=== PATIENT | female | born 1985 | race Caucasian/White ===

== ENCOUNTER → 2020-08-21 11:56 | Outpatient (BNVA) | payer OTHER, SELFPAY | PROVIDERS: PCP Internal Medicine; Referring Provider Internal Medicine; Visit Provider Obstetrics & Gynecology | DX: Z76.89 Persons encountering health services in other specified circumstances (principal) ==

== ENCOUNTER 2021-02-07 10:17 | Outpatient (REF) | payer OTHER, SELFPAY ==
[2021-02-08 13:07] LABS: H Pylori Breath Test NOT DETECTED (NOT DETECTED)
== END 2021-02-07 10:18 | disposition home or self-care (01) ==
LOC: HO.LNP 10:17
PROVIDERS: PCP Internal Medicine; Visit Provider Surgery
DX: Z01.818 Encounter for other preprocedural examination (principal); E66.01 Morbid (severe) obesity due to excess calories; Z68.41 Body mass index [BMI] 40.0-44.9, adult; R06.02 Shortness of breath
CPT/HCPCS: 83013

== ENCOUNTER 2021-02-09 07:20 | Outpatient (REF) | payer OTHER, SELFPAY ==
--- NOTE | ~2021-02-09 | XR_ITS ---
EXAMINATION: XR CHEST CLINICAL INFORMATION: Shortness of breath COMPARISON: December 14, 2017 TECHNIQUE: 2 views of the chest were obtained. FINDINGS: No significant abnormality is noted involving the heart, lungs, mediastinum, bony thorax or soft tissues. XR/XR chest 2V IMPRESSION: No acute disease.
[2021-02-09 08:19] LABS: MANUAL DIFF FLAG NO
[2021-02-09 08:31] LABS: Basophils Percent Auto 0.2 % (0-2); Eosinophils Absolute Auto 0.1 X10*3/uL (0.0-0.4); Eosinophils Percent Auto 0.6 % (0-4); Hematocrit 40.8 % (37-47); Hemoglobin 13.4 g/dl (12.0-16.0); Imm Gran Abs Auto 0.05 X10*3/uL (0.00-0.03); Imm Gran Pct Auto 0.5 % (0.0-0.4); Lymphocytes Absolute Auto 2.1 X10*3/uL (1.2-4.9); Lymphocytes Percent Auto 18.7 % (20-40); Mean Corpuscular HGB Conc 32.8 g/dl (31.0-35.0); Mean Corpuscular Hemoglobin 28.8 pg (27.0-33.0); Mean Corpuscular Volume 87.6 fL (80-98); Monocytes Absolute Auto 0.8 X10*3/uL (0.1-1.2); Neutrophils Absolute Auto 8.1 X10*3/uL (2.0-8.3); Platelet Count 301 X10*3/uL (160-400); Red Blood Count 4.66 X10*6/uL (4.20-5.50); Red Cell Distribution Width 12.5 % (11.0-16.0); White Blood Count 11.1 X10*3/uL (4.8-10.8)
[2021-02-09 08:35] LABS: Estimated Average Glucose 103 mg/dL; Hemoglobin A1c % 5.2 %
[2021-02-09 08:58] LABS: Alanine Aminotransferase 30 U/L (0-31); Albumin Level 4.1 g/dL (3.5-5.0); Alkaline Phosphatase 66 U/L (39-117); Anion Gap 17 (12-20); Aspartate Amino Transferase 23 U/L (5-31); Bilirubin Total 0.6 mg/dL (0.0-1.0); Blood Urea Nitrogen 14 mg/dL (9-16); C Reactive Protein 0.82 mg/dL (< or = 0.50); Calcium 9.1 mg/dL (8.4-10.2); Carbon Dioxide 22 mmol/L (22-29); Chloride 105 mmol/L (96-108); Cholesterol 133 mg/dL; Estimated Glomerular Filt Rate > 60; Glucose Fasting 86 mg/dL (60-99); HDL Cholesterol 25 mg/dL; Iron 66 mcg/dL (30-160); LDL Cholesterol Calculated 98 mg/dl; Percent Iron Saturation 24 % (15-50); Potassium 4.5 mmol/L (3.3-5.1); Sodium 139 mmol/L (135-145); Total Iron Binding Capacity 270 mcg/dL (228-428); Total Protein 6.8 g/dL (6.5-8.0); Triglycerides 53 mg/dL; Unsaturated Iron Binding 204 ug/dL
[2021-02-09 09:08] LABS: Thyroid Stimulating Hormone 1.39 uIU/mL (0.32-4.0); Vitamin D 25-OH Total 12.7 ng/mL (>30)
[2021-02-11 08:42] LABS: Vitamin B12 400 pg/mL (200-900)
[2021-02-11 13:43] LABS: Calcium (PTHI) 9.3 mg/dL (8.6-10.2); PTHI 28 pg/mL (14-64)
[2021-02-12 15:37] LABS: Zinc 80 mcg/dL (60-130)
[2021-02-14 06:22] LABS: Vitamin B1 8 nmol/L (8-30)
[2021-02-14 11:32] LABS: Vitamin A 26 mcg/dL (38-98)
== END 2021-02-09 07:21 | disposition home or self-care (01) ==
LOC: HO.LAB 07:20
PROVIDERS: PCP Internal Medicine; Visit Provider Surgery
DX: Z01.818 Encounter for other preprocedural examination (principal); K91.2 Postsurgical malabsorption, not elsewhere classified; R06.02 Shortness of breath; Z90.3 Acquired absence of stomach [part of]
CPT/HCPCS: 36415; 71046; 80053; 80061; 82306; 82607; 83036; 83540; 83970; 84425; 84443; 84590; 84630; 85025; 86140

== ENCOUNTER → 2021-02-26 08:12 | Outpatient (BNVA) | payer OTHER, SELFPAY | PROVIDERS: PCP Internal Medicine; Visit Provider Surgery ==

== ENCOUNTER → 2021-02-27 08:19 | Outpatient (BNVA) | payer OTHER, SELFPAY | PROVIDERS: PCP Internal Medicine; Visit Provider Dietitian, Registered | DX: E66.9 Obesity, unspecified (principal); Z68.41 Body mass index [BMI] 40.0-44.9, adult | CPT/HCPCS: 97802 ==

== ENCOUNTER → 2021-03-12 10:48 | Outpatient (BNVA) | payer OTHER, SELFPAY | PROVIDERS: PCP Internal Medicine; Referring Provider Internal Medicine; Visit Provider Surgery ==

== ENCOUNTER → 2021-03-22 13:15 | Outpatient (BNVA) | payer OTHER, SELFPAY | PROVIDERS: PCP Internal Medicine; Referring Provider Internal Medicine; Visit Provider Surgery ==

== ENCOUNTER 2021-04-03 10:09 | Inpatient (IN) | payer OTHER, SELFPAY ==
--- NOTE | 2021-03-19 09:15 | ECG_ITS ---
Test Reason : R06.02 Blood Pressure : / mmHG Vent. Rate : 056 BPM Atrial Rate : 056 BPM P-R Int : 132 ms QRS Dur : 082 ms QT Int : 400 ms P-R-T Axes : 057 023 023 degrees QTc Int : 386 ms Sinus bradycardia Otherwise normal ECG No previous ECGs available Referred By: Miryam Shipman Electronically Signed By:MARIA GUADALUPE LEVY MD
[2021-03-19 10:10] LABS: MANUAL DIFF FLAG NO
[2021-03-19 10:12] LABS: Basophils Percent Auto 0.2 % (0-2); Eosinophils Absolute Auto 0.1 X10*3/uL (0.0-0.4); Eosinophils Percent Auto 0.5 % (0-4); Hematocrit 39.7 % (37-47); Hemoglobin 13.3 g/dl (12.0-16.0); Imm Gran Abs Auto 0.02 X10*3/uL (0.00-0.03); Imm Gran Pct Auto 0.2 % (0.0-0.4); Lymphocytes Absolute Auto 1.4 X10*3/uL (1.2-4.9); Lymphocytes Percent Auto 13.8 % (20-40); Mean Corpuscular HGB Conc 33.5 g/dl (31.0-35.0); Mean Corpuscular Hemoglobin 30.2 pg (27.0-33.0); Mean Corpuscular Volume 90.2 fL (80-98); Mean Platelet Volume 11.4 fL (9.4-12.3); Monocytes Absolute Auto 0.6 X10*3/uL (0.1-1.2); Neutrophils Absolute Auto 8.2 X10*3/uL (2.0-8.3); Neutrophils Percent Auto 79.3 % (45-73); Platelet Count 286 X10*3/uL (160-400); Red Cell Distribution Width 13.1 % (11.0-16.0); White Blood Count 10.4 X10*3/uL (4.8-10.8)
[2021-03-19 10:21] LABS: INTERNATIONAL NORM RATIO 1.1 (0.9-1.1); Prothrombin Time 13.1 SEC (10.8-13.0)
[2021-03-19 10:23] LABS: Partial Thromboplastin Time 31.7 SEC (24.1-38.0)
[2021-03-19 10:27] LABS: Glucose Urine UA NEG (NEG); Leukocyte Esterase Urine NEG (NEG); Nitrite Urine NEG (NEG); PH 5.5 (5.0-8.0); Specific Gravity - Urine >= 1.030 (1.005-1.025); Urine Blood TRACE (NEG); Urine Ketones >=80 MG/DL (NEG); Urine Protein NEG (NEG-TRACE)
[2021-03-19 10:31] LABS: Appearance Urine HAZY; Color Urine YELLOW
[2021-03-19 10:34] LABS: UPreg QC Valid YES; Urine Pregnancy NEGATIVE (NEGATIVE)
[2021-03-19 10:44] LABS: Albumin Level 4.1 g/dL (3.5-5.0); Anion Gap 14 (12-20); Blood Urea Nitrogen 15 mg/dL (9-16); Calcium 9.4 mg/dL (8.4-10.2); Carbon Dioxide 23 mmol/L (22-29); Chloride 105 mmol/L (96-108); Estimated Glomerular Filt Rate > 60; Glucose Random 90 mg/dL (60-115); Potassium 4.1 mmol/L (3.3-5.1); Sodium 138 mmol/L (135-145)
[2021-03-19 10:52] LABS: Bacteria Urine 1+ /LPF; Mucus Urine 2+ /LPF; Squamous Epithelial Cell Urine 1+ /LPF; WBC Urine 0-2 /HPF (0-4)
[2021-03-19 11:07] LABS: Vitamin D 25-OH Total 61.9 ng/mL (>30)
[2021-03-24 11:56] LABS: Vitamin A 32 mcg/dL (38-98)
[2021-03-25 10:51] VITALS: BMI 40.6
--- NOTE | 2021-04-02 10:02 | P.CONAN_ITS ---
Documented by User: Piedad Morgan 04/02/21 10:05 HPI - Anesthesia Eval Consult details Narrative: 35yo F for Gastric Bypass Laparoscopic PMFSH Active Problems Active Problems: All Active Problems (Updated 03/25/21 @ 10:56 by Marylou Moran) 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 (Acute) Bacterial vaginosis (Acute) Annual physical exam (Acute) Multiple pigmented nevi (Acute) Preoperative examination (Acute) Shortness of breath (Acute) Morbid obesity due to excess calories (Acute) BMI 40.0-44.9, adult (Acute) Vitamin D deficiency (Acute) Vitamin A deficiency (Acute) Adjustment disorder, unspecified (Acute) Impaired glucose tolerance (Acute) Obesity (Acute) Past Medical History Medical History Bile salt-induced diarrhea COVID-19 vaccine series started GERD (gastroesophageal reflux disease) Gestational diabetes Hiatal hernia History of kidney stones History of pneumonia Hypotension Impaired glucose tolerance Irritable bowel syndrome Lateral meniscal tear Obesity Family History Family History Maternal Aunt Ovarian cancer Paternal Grandfather Lymphoma Mother Diabetes mellitus Acute arthritis Anxiety Family history of thyroid problem Father Smokes Hypertension High cholesterol Sister No problems noted. Sister Broken bones Asthma Daughter Migraine Asthma Son Asthma Premature baby Growth delay History of chest tube placement Pneumothorax Surgical History Surgical History H/O LEEP History of endoscopy History of esophagogastroduodenoscopy (EGD) History of removal of skin mole History of tonsillectomy and adenoidectomy Hx of cholecystectomy Hx of colonoscopy Social History Social History Are you a primary long term care administrator to a significant other at home: No Do you presently have visiting nurse or other home services: No Alcohol intake: never Sexual orientation: Straight/Heterosexual Gender identity: female Meds Allergies Allergy/AdvReac Type Severity Reaction Status Date / Time Penicillins Allergy Mild RASH Verified 03/12/21 11:04 Home Medications Medication Instructions Recorded Confirmed Last Taken Type etonogestrel 68 mg subdermal implant SUBDERMAL 08/21/20 02/26/21 Unknown History implant fluticasone propionate 50 1 spray INTRANASAL DAILY PRN 08/21/20 03/25/21 Unknown History mcg/actuation nasal spray,suspension ibuprofen 800 mg tablet 800 mg PO Q8H 08/21/20 03/25/21 11/02/20 History cholecalciferol (vitamin D3) 25 25 mcg PO DAILY 02/07/21 03/25/21 Unknown History mcg (1,000 unit) capsule Exam Exam Date and Time: April 02, 2021 1002 Height,Weight and Vital Signs: Height 5 ft 2.5 in Weight 102.512 kg Pertinent Lab Results Pertinent Lab Results: Laboratory Tests 03/19/21 03/19/21 03/19/21 09:40 09:40 09:40 WBC 10.4 RBC 4.40 Hgb 13.3 Hct 39.7 MCV 90.2 MCH 30.2 MCHC 33.5 RDW 13.1 Plt Count 286 MPV 11.4 Immature Gran % (Auto) 0.2 Neut % (Auto) 79.3 H Lymph % (Auto) 13.8 L Sunflower % (Auto) 6.0 Eos % (Auto) 0.5 Baso % (Auto) 0.2 Lymph # (Auto) 1.4 Sunflower # (Auto) 0.6 Eos # (Auto) 0.1 Baso # (Auto) 0.0 Abs Immat Gran (auto) 0.02 Absolute Neuts (auto) 8.2 Absolute Nucleated RBC 0.000 Nucleated RBC % (auto) 0.0 PT 13.1 H INR 1.1 APTT 31.7 Sodium Potassium Chloride Carbon Dioxide Anion Gap BUN Creatinine Estim Creat Clear Calc Estimated GFR Random Glucose Calcium Albumin Vitamin A 25-OH Vitamin D Total Urine Color YELLOW Urine Appearance HAZY Urine pH 5.5 Ur Specific Hardwick >= 1.030 H Urine Protein NEG Urine Glucose (UA) NEG Urine Ketones >=80 Urine Blood TRACE Urine Nitrite NEG Ur Leukocyte Esterase NEG Urine RBC 1-4 Urine WBC 0-2 Ur Squamous Epith Cells 1+ Urine Bacteria 1+ Urine Mucus 2+ Urine Test Blood Type Antibody Screen 03/19/21 03/19/21 03/19/21 09:40 09:40 09:40 WBC RBC Hgb Hct MCV MCH MCHC RDW Plt Count MPV Immature Gran % (Auto) Neut % (Auto) Lymph % (Auto) Sunflower % (Auto) Eos % (Auto) Baso % (Auto) Lymph # (Auto) Sunflower # (Auto) Eos # (Auto) Baso # (Auto) Abs Immat Gran (auto) Absolute Neuts (auto) Absolute Nucleated RBC Nucleated RBC % (auto) PT INR APTT Sodium 138 Potassium 4.1 Chloride 105 Carbon Dioxide 23 Anion Gap 14 BUN 15 Creatinine 0.69 Estim Creat Clear Calc TNP Estimated GFR > 60 Random Glucose 90 Calcium 9.4 Albumin 4.1 Vitamin A 32 L 25-OH Vitamin D Total 61.9 Urine Color Urine Appearance Urine pH Ur Specific Hardwick Urine Protein Urine Glucose (UA) Urine Ketones Urine Blood Urine Nitrite Ur Leukocyte Esterase Urine RBC Urine WBC Ur Squamous Epith Cells Urine Bacteria Urine Mucus Urine Test NEGATIVE Blood Type Antibody Screen 03/19/21 09:40 WBC RBC Hgb Hct MCV MCH MCHC RDW Plt Count MPV Immature Gran % (Auto) Neut % (Auto) Lymph % (Auto) Sunflower % (Auto) Eos % (Auto) Baso % (Auto) Lymph # (Auto) Sunflower # (Auto) Eos # (Auto) Baso # (Auto) Abs Immat Gran (auto) Absolute Neuts (auto) Absolute Nucleated RBC Nucleated RBC % (auto) PT INR APTT Sodium Potassium Chloride Carbon Dioxide Anion Gap BUN Creatinine Estim Creat Clear Calc Estimated GFR Random Glucose Calcium Albumin Vitamin A 25-OH Vitamin D Total Urine Color Urine Appearance Urine pH Ur Specific Hardwick Urine Protein Urine Glucose (UA) Urine Ketones Urine Blood Urine Nitrite Ur Leukocyte Esterase Urine RBC Urine WBC Ur Squamous Epith Cells Urine Bacteria Urine Mucus Urine Test Blood Type A Positive Antibody Screen NEGATIVE Narrative Narrative: EKG 03/2021 Vent. Rate : 056 BPM Atrial Rate : 056 BPM P-R Int : 132 ms QRS Dur : 082 ms QT Int : 400 ms P-R-T Axes : 057 023 023 degrees QTc Int : 386 ms Sinus bradycardia Otherwise normal ECG No previous ECGs available Assessment and Plan Assessment Anesthesia Assessment: Chart Reviewed Documented by User: Abril Lu 04/03/21 10:14 [facility] Past Medical History Medical History Bile salt-induced diarrhea COVID-19 vaccine series started GERD (gastroesophageal reflux disease) Gestational diabetes Hiatal hernia History of kidney stones History of pneumonia Hypotension Impaired glucose tolerance Irritable bowel syndrome Lateral meniscal tear Obesity Family History Family History Maternal Aunt Ovarian cancer Paternal Grandfather Lymphoma Mother Diabetes mellitus Acute arthritis Anxiety Family history of thyroid problem Father Smokes Hypertension High cholesterol Sister No problems noted. Sister Broken bones Asthma Daughter Migraine Asthma Son Asthma Premature baby Growth delay History of chest tube placement Pneumothorax Family history of problems with anesthesia: No Surgical History Surgical History H/O LEEP History of endoscopy History of esophagogastroduodenoscopy (EGD) History of removal of skin mole History of tonsillectomy and adenoidectomy Hx of cholecystectomy Hx of colonoscopy History of Problems with Anesthesia: Yes (PONV) Social History Social History Are you a primary long term care administrator to a significant other at home: No Do you presently have visiting nurse or other home services: No Alcohol intake: never Sexual orientation: Straight/Heterosexual Gender identity: female Meds Allergies Allergy/AdvReac Type Severity Reaction Status Date / Time Penicillins Allergy Mild RASH Verified 03/12/21 11:04 Home Medications Medication Instructions Recorded Confirmed Last Taken Type etonogestrel 68 mg subdermal implant SUBDERMAL 08/21/20 02/26/21 Unknown History implant fluticasone propionate 50 1 spray INTRANASAL DAILY PRN 08/21/20 03/25/21 Unknown History mcg/actuation nasal spray,suspension ibuprofen 800 mg tablet 800 mg PO Q8H 08/21/20 03/25/21 11/02/20 History cholecalciferol (vitamin D3) 25 25 mcg PO DAILY 02/07/21 03/25/21 Unknown History mcg (1,000 unit) capsule Exam Height,Weight and Vital Signs: Vital Signs Temp Pulse Resp BP Pulse Ox 04/03/21 09:27 97.4 F 75 16 140/68 H 100 Pertinent Lab Results Pertinent Lab Results: Laboratory Results - last 24 hr 04/03/21 04/03/21 09:09 09:09 Urine Test NEGATIVE COVID-19 (ALCON) Negative COVID-19 Clin Com See Note Airway Mallampati Class: II TM Dist: >3cm Neck ROM: Full Heart: RRR Lungs: CTAB Assessment and Plan Assessment Anesthesia Assessment: Anesthesia Plan Discussed and Chart Reviewed Final Anesthetic Review NPO: Yes ASA Class: III Final Preanesthetic Review: No Changes in Pt Med Stat, Meds/Allgs Chart Reviewed, Consent Obtained/Reviewed and Anes Risks/Benef Reviewed Patient Risk: Intermediate Procedure Risk: Intermediate Assessment/Block/Sedation in SS: Assess/Block/Sedation-SS Anesthetic Plan Anesthetic Plan: GA Disposition: Inp. Admit - Standard Bed
--- NOTE | 2021-04-02 16:11 | MHC.SHP ---
Pre-Procedural Eval Section B Chief Complaint: obesity Allergies: Allergies Allergy/AdvReac Type Severity Reaction Status Date / Time Penicillins Allergy Mild RASH Verified 03/12/21 11:04 Plan I have reviewed the history and physical and performed a pertinent physical examination on my patient. No changes have occurred unless specified.
[2021-04-03] VITALS (12 sets, daily range): BP systolic 91–140; BP diastolic 28–73; PULSE 52–85; RESP 15–20; TEMP 36.2–36.8; O2SAT 95–100
[2021-04-03 09:31] LABS: UPreg QC Valid YES; Urine Pregnancy NEGATIVE (NEGATIVE)
[2021-04-03] MEDS: Clindamycin Phosphate/D5W 900 MG/50 ML PIGGYBACK 50 MG IV (09:39)
[2021-04-03] MEDS: Lactated Ringers 1,000 ML 100 ML IVCONT (09:39)
[2021-04-03 09:40] LABS: COVID-19 Test Negative (Negative); IDNOW Serial# 9DD0AD1C
[2021-04-03] MEDS: Scopolamine 1.5 MG PATCH.TD.3 TRANSDERMA (10:13)
[2021-04-03] MEDS: ondansetron HCL 4 MG/2 ML VIAL IVPUSH ×2 (13:58→22:30)
[2021-04-03] MEDS: Famotidine/PF 20 MG/2 ML VIAL IVPUSH ×2 (14:06→20:26)
--- NOTE | 2021-04-03 14:09 | PM.DS ---
DS: Providers Provider Date of Service: 04/04/21 Date of admission: 04/03/21 10:09 Primary care physician: Samuel Larsen MD DS: Medications Discharge Medications Home Medications: Home Medications Medication Instructions Recorded Confirmed etonogestrel 68 mg subdermal implant SUBDERMAL 08/21/20 02/26/21 implant fluticasone propionate 50 1 spray INTRANASAL DAILY PRN 08/21/20 03/25/21 mcg/actuation nasal spray,suspension ibuprofen 800 mg tablet 800 mg PO Q8H 08/21/20 03/25/21 cholecalciferol (vitamin D3) 25 25 mcg PO DAILY 02/07/21 03/25/21 mcg (1,000 unit) capsule Previous Rx's Medication Instructions Recorded omeprazole 20 mg capsule,delayed 20 mg PO DAILY #90 cap 11/01/20 release cholecalciferol (vitamin D3) 1,250 1,250 mcg PO QWEEK #4 cap 02/11/21 mcg (50,000 unit) capsule vitamin A palmitate 10,000 unit 20,000 unit PO DAILY 30 Days #60 02/14/21 tablet tab DS: Summary Time Spent with Patient Time attestation: Total time spent providing and/or coordinating discharge services: 15DATE OF SERVICE: ADMITTING DIAGNOSES: morbid obestiy, hiatal hernia DISCHARGE DIAGNOSES: same, see procedure note PROCEDURE PERFORMED: laparoscopic RNY gastric bypass and hiatal hernia repair DISCHARGE MEDICATIONS: 1. Simethicone 80mg q4h prn gas 2. Ondansetron 4mg po tid prn nausea 3. Famotidine 20mg po bid 4. Docusate sodium 100mg po bid DISCHARGE INSTRUCTIONS: The patient should continue on the stage III bariatric diet, which includes 3 protein shakes of at least 20- 30g of protein on a daily basis. The patient was encouraged to avoid drinking liquids with her protein shakes. She should wait 30-45 minutes in between her meals and drinking water. She should drink at least 40-60 ounces of water on a daily basis. She should ambulate while at home to avoid any blood clots in her lower extremities. She should call with any questions or concerns such as increase in abdominal pain, persistent nausea, vomiting, redness and drainage from her incisions, fever, chills, shortness of breast, or chest pain beyond what is normal for her. The patient should avoid all heavy lifting greater than 5 pounds for the next 4 weeks. The patient is already scheduled to follow up with me in 2 weeks' time, but should call the office with any questions prior to that follow up appointment. The patient should not advance her diet until she is seen in the office for the 2 week appointment. HOSPITAL COURSE: The patient was admitted after undergoing laparoscopic RNY gastric bypass and hiatal hernia repair. She was kept NPO under pod # 1 when she toelrated biariatic phase 2 diet and then started on stage III diet and was tolerating well without nausea or vomiting. Her pain was controlled on IV Dilaudid and IV acetaminophen. All labs were within normal limits. On post-operative day #1 she was feeling better, nausea and epigastric pain improved and she was tolerating stage III bariatric diet well. She was discharged home. DISCHARGE DISPOSITION: Home. Discharge coordination time: Less than 30 minutes Quality: Stroke Does the patient have a stroke diagnosis?: No Physical Exam Vital Signs: Vital Signs: Last Vital Signs Temp 98.2 F 04/03/21 13:46 Pulse 80 04/03/21 13:51 Resp 16 04/03/21 13:51 BP 99/33 L 04/03/21 13:51 Pulse Ox 100 04/03/21 13:51 Body Mass Index 40.6 DS: Data Data Completed and Pending Labs on day of discharge: Laboratory Results - last 24 hr 04/03/21 04/03/21 09:09 09:09 Urine Test NEGATIVE COVID-19 (ALCON) Negative COVID-19 Clin Com See Note Discharge Plan Discharge Anticipated Discharge Date/Time: 04/04/21 12:04 Patient Disposition: Home, Self-Care Discharge Diagnosis: s/p gastric bypass Referrals: Po,Samuel Garcia MD [Primary Care Provider] - 1 Week Discharge Medications: Continued omeprazole 20 mg capsule,delayed release(DR/EC) 20 mg PO DAILY Qty: 90 RF: 2 cholecalciferol (vitamin D3) 1,250 mcg (50,000 unit) capsule 1,250 mcg PO QWEEK Qty: 4 RF: 2 cholecalciferol (vitamin D3) 25 mcg (1,000 unit) capsule 25 mcg PO DAILY RF: 0 etonogestrel 68 mg implant subdermal RF: 0 fluticasone propionate 50 mcg/actuation spray,suspension 1 spray intranasal DAILY PRN (Reason: Allergy Symptoms) RF: 0 Discontinued vitamin A palmitate 10,000 unit tablet 20,000 unit PO DAILY 30 Days Qty: 60 RF: 1 ibuprofen 800 mg tablet 800 mg PO Q8H RF: 0 Discharge Orders: Discharge Order (Routine); Ordered 04/04/21 Ordered By: Joann Henriquez Diet: other Activity on Discharge: No heavy lifting Stand Alone Forms: Patient Portal Discharge page Activity Restrictions/Additional Instructions: No tub baths, sex or returning to work until discussed at first post op appointment. No exercise, alcohol, tobacco or illegal drug use. Continue to use incentive spirometer hourly while awake. Walk in home for 5- 10 minutes every 2 hours during the first week. Continue phase 3 diet until first post op appointment. Follow all instructions in the bariatric handbook and call with any questions.Discharge Instructions 1. Please call your doctor or come back to the emergency room should any new symptoms arise. 2. You will receive a courtesy call from [facility] 24-48 hours after discharge. 3. Activity: abstain from alcohol, practice limited stair climbing, no bending, no driving, no exercise, no illicit substances, no lifting, no sex, no tub bath, no work. 4. Diet: continue stage 3 protein shakes until your [address] Shipman. 5. Dressing Change/Wound Care: Your incision is covered by surgical glue. If the area is tender, you may apply an ice pack for short intervals (no more than 20 minutes on, followed by at least 20 minutes off). Do not apply heat. Do not use creams, lotions, or topical antibiotics unless instructed to do so by your surgeon. These can cause infection or allergic reaction. 6. Call your doctor if: - Your temperature exceeds 101.5 F - You experience excessive pain or swelling - You have an unexpected reaction to medication - You have excessive bleeding - You experience continued vomiting/nausea - Your incision begins to separate - Your incision shows signs of infection such as increased redness, swelling, excessive pain, heat, or drainage (light blood or clear fluid is normal) 7. General instructions: No lifting greater than 5 lbs for the next 4 weeks[address] within 24 hours of taking narcotic pain medications. If you do not move your bowels in the next 2 days, please take milk of magnesia over the counter. Please follow the post op diet and do not advance your diet until you are seen in the office in about 2 weeks. Please walk around your home every hour or two to prevent blood clots from forming in your legs. You do not need to wake from sleeping to walk. Please sleep in a bed or couch to prevent kinking at the hips and knees. Please take your incentive spirometer (your lung veneer grader) home with you and use it for the next few days to prevent pneumonias. You may shower, no hot tubs, baths or swimming pools. Please call the office with any questions or concerns such as increasing abdominal pain, fever, chills, shortness of breath, chest pain, leg pain or swelling, or redness or drainage from your incisions. Please stay on stage 3 diet which includes sugar free clear liquids such as ice pops and jello and broth and crystal light. Avoid all carbonation. Please drink 3 protein shakes with at least 25-30 grams of protein daily or 3 of the Celebrate 4:1 shakes which can be purchased in our office. The Celebrate shakes have all of the bariatric vitamins you need if you consume these shakes. If you are drinking other protein shakes, you will need to purchase the Celebrate multivitamins and calcium that we provide in the office (they will provide all the vitamins you need). Please make sure you are consuming at least 40-60 ounces of water in addition to your 3 protein shakes daily. Do not hesitate to contact the office with any questions at . Care Plan Goals: weight loss Health Concerns: morbid obesity Plan of Treatment: see discharge instgructions Assessment: stable POD # 1 s/p gastric bypass
--- NOTE | 2021-04-03 14:11 | P.OP_ITS ---
Operative Note Operative Note Date of Service: 04/03/21 Narrative: Patient was brought into the operating room and placed on the operating room table in the supine position. General anesthesia was induced. Normal DVT prophylaxis was instituted and the patient received 900 mg of clindamycin preoperatively. The abdomen was then prepped and draped in the normal sterile fashion. A safety time-out was performed. A mixture of 1% lidocaine with epinephrine and ?% Marcaine plain was used to a nesthetize the planned incision site in the left upper quadrant. A #11 scalpel was used to make a 5 mm left upper quadrant transverse incision through which a veress needle was placed. Three pops were heard going through the fascia. A saline drop test was used to confirm that the veress needle was intraabdominal. An optiview technique was then used to place a 5mm port in the left upper quadrant. A 5 mm 30 degree laproscope was then placed through this port and the abdominal cavity was surveyed and was normal. The patient was placed in reverse Trendelenburg positioning. A kirstin liver retractor was then placed in the subxyphoid position and it was used to hold up the left lobe of the liver to the abdominal wall. This was secured to the bed using the liver retractor freitas. A SALAZAR block was then performed for pain control on the right side of the abdomen. A 5 mm port was placed in the right upper quadrant near the falciform ligament. A 12 mm port was then placed in the mid epigastrium. One additional 5 mm port was placed in the left upper quadrant just to the left of the placement of the first port. I then performed a SALAZAR block on the left side of the abdomen. We lifted up the transverse colon mesentery and visualized the ligament of Trietz. I then counted 40 cm from the ligament of Trietz and created a small window in the small bowel mesentery. I then stapled across the antimesenteric surface of the small bowel at the at the 40 cm maria alejandra. The proximal limb is the biliopancreatic limb and the distal transected bowel will be the sisi limb. I divided the mesentery at the 40 cm maria alejandra parallel to the blood vessels in the mesentery for a short distance to be able to bring up the sisi limb to the gastric pouch later. I counted 150 cm from the distally transected bowel and sut ured the the sisi limb at 150 cm to the biliopancreatic limb using the endostich and a 2-0 ethibond. I then created 2 enterotomies in the lined up limbs of bowel using the hook cautery. I lengthened the enterotomies using the ligasure device and created a common anastomosis using a 60 mm pena load endostapler. I stapled the common enterotomy transversely to prevent stricture. I then closed the mesenteric defect at the anastomosis with a 2-0 ethibond running endostich suture. I then created the gastric pouch. I removed the epigastric fat pad and opened up the angle of His. There was a 3 cm anterior hiatal hernia. I reapproximated the left and right crura with a total of 2 stitches of 2-0 Ethibond using the Endo Stitch device. There was no residual hiatal hernia. I gained entry into the l nacho sac on the lesser curvature of the stomach by dividing a portion of the pars lucida. I fired a 60 mm purple endostapler transversely across the stomach about 4 cm distal to the GE junction. I then fired an additional 1 firing of a 60 mm and a 45 mm purple load stapler vertically up the stomach to the angle of His to complete the gastric pouch. The staple line was hemostatic. I brought the sisi limb up to the gastric pouch and sutured the sisi limb serosa to the gastric pouch serosa posterior to the transverse staple line using a 2-0 ethibond running stitch using the endostitch. I created a gastrotomy and enterotomy in the adjacent sisi limb. I lengthened the gastrotomy and enterotomy using the ligasure. I sutured the posterior wall of the stomach and the sisi limb together using a 0 vicryl running stitch. I sutured the anterior wall of the stomach and sisi limb together using another running 0-vicryl stitch. The the anterior serosa of stomach and sisi limb were sutured using a 2-0 ethibond running stitch for a double layer anterior and posterior closure of the gastrojejunostomy. I then clamped across the sisi limb distal to the anastomosis using a fired 60 mm stapler. I flatted the patient and instilled normal saline around the new anastomosis. I per formed an on-talbe endoscopy. The gastric pouch mucosa was pink without any active bleeding the anastomosis was visably patent. I insufflated the gastric pouch and anastomosis. There was no evidence of leak on laparoscopy. I desufflated the gastric pouch and removed the endoscopy. I removed the endostapler from the abdomen and suctioned the fluid from the left upper quadrant. We removed the 12 mm port and closed the defect with a 0 maxon suture and laparoscopic suture passer. We instilled local anesthetic into the fascial closure site and tied the suture down at a pressure of 8-10 mm of Hg. I removed the kirstin liver retractor and the left upper quadrant ports. There was no evidence active bleeding. I removed the last port and laparoscopy. We reapproximated all skin incisions using 4-0 monocryl subcuticular stitch. We cleaned and dried the skin and applied dermabond to all skin incisions. All counts were correct at the end of the case . There were no complications. The patient was awake and in stable condition prior to extubation and transfer to the recovery room.
--- NOTE | 2021-04-03 14:15 | PM.OP ---
Brief Operative Note Date of Service: 04/03/21 Pre-op diagnosis: Morbid obesity, BMI 41.8, severe gastroesophageal reflux disease, and hiatal hernia Post-op diagnosis: same Procedure: Laparoscopic Deisi-en-Y gastric bypass with 150 cm Deisi limb, hiatal hernia repair, Sukumar block, intraoperative endoscopy Implants: covidien murtaza Surgeon: Miryam Shipman MD Anesthesia: GETA Was an Lead Software Tester used for this Procedure?: Yes Lead Software Tester: Joann Henriquez Estimated blood loss (mL): 30 Pathology: none sent Condition: stable Disposition: PACU
[2021-04-03] MEDS: Haloperidol Lactate 5 MG/ML VIAL 1 MG IV (15:01)
[2021-04-03] MEDS: Lactated Ringers 1,000 ML 150 ML IVCONT ×2 (15:42→22:26)
[2021-04-03] MEDS: 0.9 % Sodium Chloride Flush 3 ML SYRINGE IVFLUSH ×2 (15:49→20:26)
--- NOTE | 2021-04-03 16:01 | PM.DS ---
DS: Providers Provider Date of Service: 04/04/21 Date of admission: 04/03/21 10:09 Primary care physician: Samuel Larsen MD DS: Medications Discharge Medications Home Medications: Home Medications Medication Instructions Recorded Confirmed etonogestrel 68 mg subdermal implant SUBDERMAL 08/21/20 02/26/21 implant fluticasone propionate 50 1 spray INTRANASAL DAILY PRN 08/21/20 03/25/21 mcg/actuation nasal spray,suspension ibuprofen 800 mg tablet 800 mg PO Q8H 08/21/20 03/25/21 cholecalciferol (vitamin D3) 25 25 mcg PO DAILY 02/07/21 03/25/21 mcg (1,000 unit) capsule Previous Rx's Medication Instructions Recorded omeprazole 20 mg capsule,delayed 20 mg PO DAILY #90 cap 11/01/20 release cholecalciferol (vitamin D3) 1,250 1,250 mcg PO QWEEK #4 cap 02/11/21 mcg (50,000 unit) capsule vitamin A palmitate 10,000 unit 20,000 unit PO DAILY 30 Days #60 02/14/21 tablet tab DS: Summary Time Spent with Patient Time attestation: Total time spent providing and/or coordinating discharge services: Discharge coordination time: Less than 30 minutes Quality: Stroke Does the patient have a stroke diagnosis?: No Physical Exam Vital Signs: Vital Signs: Last Vital Signs Temp 97.4 F 04/03/21 15:36 Pulse 78 04/03/21 15:36 Resp 20 04/03/21 15:36 BP 110/63 04/03/21 15:36 Pulse Ox 95 04/03/21 15:36 Body Mass Index 40.6 DS: Data Data Completed and Pending Labs on day of discharge: Laboratory Results - last 24 hr 04/03/21 04/03/21 09:09 09:09 Urine Test NEGATIVE COVID-19 (ALCON) Negative COVID-19 Clin Com See Note Discharge Plan Discharge Anticipated Discharge Date/Time: 04/04/21 12:04 Patient Disposition: Home, Self-Care Discharge Diagnosis: s/p gastric bypass Referrals: Chava,Samuel Garcia MD [Primary Care Provider] - 1 Week Discharge Medications: Continued omeprazole 20 mg capsule,delayed release(DR/EC) 20 mg PO DAILY Qty: 90 RF: 2 cholecalciferol (vitamin D3) 1,250 mcg (50,000 unit) capsule 1,250 mcg PO QWEEK Qty: 4 RF: 2 cholecalciferol (vitamin D3) 25 mcg (1,000 unit) capsule 25 mcg PO DAILY RF: 0 etonogestrel 68 mg implant subdermal RF: 0 fluticasone propionate 50 mcg/actuation spray,suspension 1 spray intranasal DAILY PRN (Reason: Allergy Symptoms) RF: 0 Discontinued vitamin A palmitate 10,000 unit tablet 20,000 unit PO DAILY 30 Days Qty: 60 RF: 1 ibuprofen 800 mg tablet 800 mg PO Q8H RF: 0 Discharge Orders: Discharge Order (Routine); Ordered 04/04/21 Ordered By: Joann Henriquez Diet: other Activity on Discharge: No heavy lifting Stand Alone Forms: Patient Portal Discharge page Activity Restrictions/Additional Instructions: No tub baths, sex or returning to work until discussed at first post op appointment. No exercise, alcohol, tobacco or illegal drug use. Continue to use incentive spirometer hourly while awake. Walk in home for 5- 10 minutes every 2 hours during the first week. Continue phase 3 diet until first post op appointment. Follow all instructions in the bariatric handbook and call with any questions.Discharge Instructions 1. Please call your doctor or come back to the emergency room should any new symptoms arise. 2. You will receive a courtesy call from [facility] 24-48 hours after discharge. 3. Activity: abstain from alcohol, practice limited stair climbing, no bending, no driving, no exercise, no illicit substances, no lifting, no sex, no tub bath, no work. 4. Diet: continue stage 3 protein shakes until your [address] Shipman. 5. Dressing Change/Wound Care: Your incision is covered by surgical glue. If the area is tender, you may apply an ice pack for short intervals (no more than 20 minutes on, followed by at least 20 minutes off). Do not apply heat. Do not use creams, lotions, or topical antibiotics unless instructed to do so by your surgeon. These can cause infection or allergic reaction. 6. Call your doctor if: - Your temperature exceeds 101.5 F - You experience excessive pain or swelling - You have an unexpected reaction to medication - You have excessive bleeding - You experience continued vomiting/nausea - Your incision begins to separate - Your incision shows signs of infection such as increased redness, swelling, excessive pain, heat, or drainage (light blood or clear fluid is normal) 7. General instructions: No lifting greater than 5 lbs for the next 4 weeks[address] driving within 24 hours of taking narcotic pain medications. If you do not move your bowels in the next 2 days, please take milk of magnesia over the counter. Please follow the post op diet and do not advance your diet until you are seen in the office in about 2 weeks. Please walk around your home every hour or two to prevent blood clots from forming in your legs. You do not need to wake from sleeping to walk. Please sleep in a bed or couch to prevent kinking at the hips and knees. Please take your incentive spirometer (your lung director global strategic publisher sales) home with you and use it for the next few days to prevent pneumonias. You may shower, no hot tubs, baths or swimming pools. Please call the office with any questions or concerns such as increasing abdominal pain, fever, chills, shortness of breath, chest pain, leg pain or swelling, or redness or drainage from your incisions. Please stay on stage 3 diet which includes sugar free clear liquids such as ice pops and jello and broth and crystal light. Avoid all carbonation. Please drink 3 protein shakes with at least 25-30 grams of protein daily or 3 of the Celebrate 4:1 shakes which can be purchased in our office. The Celebrate shakes have all of the bariatric vitamins you need if you consume these shakes. If you are drinking other protein shakes, you will need to purchase the Celebrate multivitamins and calcium that we provide in the office (they will provide all the vitamins you need). Please make sure you are consuming at least 40-60 ounces of water in addition to your 3 protein shakes daily. Do not hesitate to contact the office with any questions at . Care Plan Goals: weight loss Health Concerns: morbid obesity Plan of Treatment: see discharge instgructions Assessment: stable POD # 1 s/p gastric bypass
[2021-04-03] MEDS: Clindamycin Phosphate/D5W 600 MG/50 ML PIGGYBACK 100 MG IV (18:40)
[2021-04-03] MEDS: HYDROmorphone HCl 0.5 MG/0.5 ML SYRINGE 0.25 MG IVPUSH (20:25)
[2021-04-04] MEDS: HYDROmorphone HCl 0.5 MG/0.5 ML SYRINGE 0.25 MG IVPUSH (00:24)
[2021-04-04 03:08] VITALS: BP 114/62; PULSE 72; RESP 16; TEMP 36.1; O2SAT 98
[2021-04-04] MEDS: Lactated Ringers 1,000 ML 150 ML IVCONT ×2 (05:07→12:05)
[2021-04-04 06:25] LABS: MANUAL DIFF FLAG NO
[2021-04-04] MEDS: ondansetron HCL 4 MG/2 ML VIAL IVPUSH ×2 (06:37→14:42)
[2021-04-04 06:40] LABS: Basophils Percent Auto 0.1 % (0-2); Hematocrit 36.9 % (37-47); Hemoglobin 12.1 g/dl (12.0-16.0); Imm Gran Abs Auto 0.08 X10*3/uL (0.00-0.03); Imm Gran Pct Auto 0.5 % (0.0-0.4); Lymphocytes Absolute Auto 1.2 X10*3/uL (1.2-4.9); Lymphocytes Percent Auto 7.8 % (20-40); Mean Corpuscular HGB Conc 32.8 g/dl (31.0-35.0); Mean Corpuscular Volume 91.6 fL (80-98); Mean Platelet Volume 11.8 fL (9.4-12.3); Monocytes Percent Auto 6.4 % (2-11); Neutrophils Absolute Auto 13.4 X10*3/uL (2.0-8.3); Neutrophils Percent Auto 85.2 % (45-73); Platelet Count 206 X10*3/uL (160-400); Red Blood Count 4.03 X10*6/uL (4.20-5.50); White Blood Count 15.7 X10*3/uL (4.8-10.8)
[2021-04-04 06:55] LABS: Alanine Aminotransferase 89 U/L (0-31); Albumin Level 3.4 g/dL (3.5-5.0); Alkaline Phosphatase 61 U/L (39-117); Anion Gap 11 (12-20); Aspartate Amino Transferase 46 U/L (5-31); Bilirubin Total 0.8 mg/dL (0.0-1.0); Blood Urea Nitrogen 8 mg/dL (9-16); Calcium 8.8 mg/dL (8.4-10.2); Carbon Dioxide 23 mmol/L (22-29); Chloride 105 mmol/L (96-108); Creatinine Clr Calc Pharmacy 143.4; Estimated Glomerular Filt Rate > 60; Glucose Random 95 mg/dL (60-115); Potassium 4.4 mmol/L (3.3-5.1); Sodium 135 mmol/L (135-145); Total Protein 5.6 g/dL (6.5-8.0)
--- NOTE | 2021-04-04 07:19 | PM.PNGS ---
Subjective Subjective Date of Service: 04/04/21 <Joann Henriquez PA-C - Last Filed: 04/04/21 07:26> 04/04/21 <Miryam Shipman MD - Last Filed: 04/04/21 09:17> Interval history: Pt states she has thick white foamy saliva in mouth. Some nausea overnight controlled with antiemetics. The only abd pain she has RLQ pain in groin after voiding this am. No emesis or bloody saliva. She is ambulating well and using ICS x 10 hourly to 1500mls. Had bilteral shoulder pain last night, but this has resolved. <Joann Henriquez PA-C - Last Filed: 04/04/21 07:26> This is a 35-year-old lady on postoperative day 1. Status post laparoscopic Deisi-en-Y gastric bypass and hiatal hernia repair well. Patient has been up and ambulating and is using the incentive spirometer. Vital signs are within normal limits as well as postoperative labs for postoperative day 1. Patient had complained some gas discomfort in bilateral shoulders which is improving. Patient is tolerating stage II diet without nausea vomiting. On exam patient is well appearing in no apparent distress. Abdomen is soft obese nondistended. There is mild appropriate incisional tenderness. Incisions are clean dry intact with Dermabond in place. Extremities are warm well-perfused throughout. Assessment and plan: This is a 35-year-old lady on postoperative day 1. Doing well status post a laparoscopic Deisi-en-Y gastric bypass and hiatal hernia repair. Patient will continue with diet and in an hour we will advance her to a stage III bariatric diet. If the patient is tolerating stage III diet she will be discharged home early this afternoon. Patient will follow-up with me in 2 weeks time frame. <Miryam Shipman MD - Last Filed: 04/04/21 09:17> Physical Exam Vital Signs: Vital Signs: Last Vital Signs Temp 97.0 F 04/04/21 03:08 Pulse 72 04/04/21 03:08 Resp 16 04/04/21 03:08 BP 114/62 04/04/21 03:08 Pulse Ox 98 04/04/21 03:08 Body Mass Index 40.6 <Joann Henriquez PA-C - Last Filed: 04/04/21 07:26> Const: General: cooperative, healthy appearing and comfortable <Joann Henriquez PA-C - Last Filed: 04/04/21 07:26> Nutritional Appearance: obese <Joann Henriquez PA-C - Last Filed: 04/04/21 07:26> GI: Inspection: Yes normal to inspection, No abdominal wall ecchymosis, No distended and Yes incision (all c/d/i with surgical glue) <Joann Henriquez PA-C - Last Filed: 04/04/21 07:26> Palpation (GI): Soft to palpation, nontender, no guarding, not rigid, no hernias and no masses <Joann Henriquez PA-C - Last Filed: 04/04/21 07:26> Extrem: General: No no pedal edema and No no calf tenderness <Joann Henriquez PA-C - Last Filed: 04/04/21 07:26> Psych: Affect: normal affect <BIA Nguyen Last Filed: 04/04/21 07:26> Thought process: Normal thought process present <BIA Nguyen Last Filed: 04/04/21 07:26> Progress Note: A&P Assessment and plan (1) Hx of gastric bypass: Status: Acute <Joann Henriquez PA-C - Last Filed: 04/04/21 07:26> (2) History of repair of hiatal hernia: Status: Acute <BIA Nguyen Last Filed: 04/04/21 07:26> (3) Morbid obesity due to excess calories: Status: Acute <Joann Henriquez PA-C - Last Filed: 04/04/21 07:26> Assessment and Plan: POD # 1 for this 35 yo woman s/p RNYGBP and repair of hiatal hernia. She is doing well post op labs have been reviewed with expected results. Will start phase 2 bariatric diet this am and is tolerates will advance to bariatric phase 3 diet before going home today. Pt reminded to drink slowly, one ounce q 15 minutes - 5 -6 sips per cup. Slow down further if gets to full or nauseated. Dr Shipman to evaluate patient prior to discharge. <Joann Henriquez PA-C - Last Filed: 04/04/21 07:26> Fall Risk Details Current Medications: Current Medications Generic Name Dose Route Start Last Admin Trade Name Freq PRN Reason Stop Dose Admin Famotidine 20 mg 04/03/21 14:02 04/03/21 20:26 Famotidine/Pf 20 Mg/2 Ml Vial IVPUSH 20 mg BID ANNI Administration Haloperidol Lactate 1 mg 04/03/21 14:58 04/03/21 15:01 Haloperidol Lactate 5 Mg/Ml Vial IV 1 mg Q1H PRN Administration Nausea Hydromorphone HCl 0.25 mg 04/03/21 15:13 04/04/21 00:24 Hydromorphone Hcl 0.5 Mg/0.5 Ml Syringe IVPUSH 0.25 mg Q4H PRN Administration Pain, Moderate (Pain Scale 4-6 Acetaminophen 1,000 mg in 100 mls @ 16.7 mls/hr 04/03/21 15:13 04/04/21 02:16 Ofirmev IV 16.7 mls/hr .Q6H ANNI Administration Lactated Ringer's 1,000 mls @ 150 mls/hr 04/03/21 15:13 04/04/21 05:07 Lr IVCONT 150 mls/hr .Q6H40M ANNI Administration Metoclopramide HCl 10 mg 04/03/21 15:13 Metoclopramide Hcl 10 Mg/2 Ml Vial IVPUSH Q6H PRN Nausea Ondansetron HCl 4 mg 04/03/21 15:13 04/04/21 06:37 Ondansetron Hcl 4 Mg/2 Ml Vial IVPUSH 4 mg Q8H ANNI Administration Sodium Chloride 3 ml 04/03/21 16:00 04/03/21 20:26 0.9 % Sodium Chloride Flush 3 Ml Syringe IVFLUSH 3 ml QSHIFT ANNI Administration <Joann Henriquez PA-C - Last Filed: 04/04/21 07:26> Time Spent With Patient Time: Total time spent is greater than 50% in coordination of care (as documented) at patient's floor/unit and/or counseling patient: <Joann Henriquez PA-C - Last Filed: 04/04/21 07:26> Time with patient: less than 15 minutes <Miryam Shipman MD - Last Filed: 04/04/21 09:17> Procedures Date of Service Date of Service: 04/04/21 <Miryam Shipman MD - Last Filed: 04/04/21 09:17>
[2021-04-04 08:00] VITALS: BP 124/69; PULSE 47; RESP 16; TEMP 36.2; O2SAT 100
[2021-04-04] MEDS: Famotidine/PF 20 MG/2 ML VIAL IVPUSH (08:14)
--- NOTE | 2021-04-04 10:26 | MHC.CM.PN ---
CM MET WITH PT WHO REPORTS SHE LIVES WITH HER KIDS AND HER FATHER LIVES UPSTAIRS. PT REPORTS BEING INDEPENDENT WITH ALL CARE AND MOBILITY. PT HAS NO SERVICES. PT CONFIRMS HER PCP IS ARIELA VANG. PT IS UNSURE IF SHE HAS A HCP. SHE WILL TAKE A BLANK DOCUMENT TO COMPLETE IN THE EVENT SHE DOES NOT HAVE ONE. CURRENT DC PLAN IS HOME WITH NO SERVICES PT WILL ARRANGE TRANSPORT
[2021-04-04 11:56] VITALS: BP 149/74; PULSE 51; RESP 16; TEMP 36.4; O2SAT 100
[2021-04-04] MEDS: Metoclopramide HCl 10 MG/2 ML VIAL IVPUSH (12:07)
--- NOTE | 2021-04-04 13:16 | PC.NURSE ---
1200 Heart rate 51. No S/S. Dr Shipman aware. No new orders. Pt ambulated in [place], Meron well. Reglan given for c/o nausea
[2021-04-04 15:45] VITALS: BP 105/56; PULSE 54; RESP 18; TEMP 36.2; O2SAT 100
--- NOTE | 2021-04-05 06:41 | HO.POSTANES ---
Post Anesthesia Evaluation Post Anesthesia Evaluation Vital Signs: patient seen on 04/04/21 at 745am, vitals stable Anesthesia: General Endotracheal-GETA Mental Status: Awake Pain Control: Satisfactory Nausea/Vomiting: None Hydration: Adequate Anesthesia-Related Issues: No Anes. Related Issues
== END 2021-04-04 17:30 | disposition home or self-care (01) | DRG 403 ==
LOC: HO.SSSA 14:08 → HO.S3 14:42
PROVIDERS: Physician Assistant; Admitting Provider Surgery; PCP Internal Medicine; Visit Provider Surgery
PROC: 0D164ZA Bypass Stomach to Jejunum, Percutaneous Endoscopic Approach (ICD-10-PCS; principal; 2021-04-03 09:50)
DX: E66.01 Morbid (severe) obesity due to excess calories (principal); K44.9 Diaphragmatic hernia without obstruction or gangrene; Z20.822 Contact with and (suspected) exposure to COVID-19; Z68.41 Body mass index [BMI] 40.0-44.9, adult; Z87.442 Personal history of urinary calculi; Z88.0 Allergy status to penicillin; Z79.3 Long term (current) use of hormonal contraceptives; Z79.51 Long term (current) use of inhaled steroids; Z79.899 Other long term (current) drug therapy
CPT/HCPCS: 36415; 80048; 80053; 81001; 81025; 82040; 82306; 84590; 85025; 85610; 85730; 86850; 86900; 86901; 87635; 93005; J0131; J1100; J1170; J2250; J2370; J2405; J2550; J2765; J3010

== ENCOUNTER → 2021-04-16 09:55 | Outpatient (BNVA) | payer OTHER, SELFPAY | PROVIDERS: PCP Internal Medicine; Referring Provider Internal Medicine; Visit Provider Physician Assistant ==

== ENCOUNTER 2021-04-24 13:02 | Outpatient (REF) | payer OTHER, SELFPAY ==
[2021-04-24 14:32] LABS: Hematocrit 41.6 % (37-47); Hemoglobin 13.9 g/dl (12.0-16.0); Mean Corpuscular HGB Conc 33.4 g/dl (31.0-35.0); Mean Corpuscular Hemoglobin 29.6 pg (27.0-33.0); Mean Corpuscular Volume 88.7 fL (80-98); Mean Platelet Volume 12.5 fL (9.4-12.3); Platelet Count 303 X10*3/uL (160-400); Red Blood Count 4.69 X10*6/uL (4.20-5.50); Red Cell Distribution Width 12.9 % (11.0-16.0); White Blood Count 11.7 X10*3/uL (4.8-10.8)
[2021-04-24 16:02] LABS: HCG Quantitative < 2 mIU/mL; TSH reflex Free T4 0.58 uIU/mL (0.32-4.0)
[2021-04-25 03:59] LABS: CT PCR NOT DETECTED (Not Detect.); NG PCR NOT DETECTED (Not Detect.)
[2021-04-25 10:03] LABS: BV Int Neg Control Negative (Negative); BV Int Pos Control Positive (Positive)
== END 2021-04-24 13:03 | disposition home or self-care (01) ==
LOC: HO.LAB 13:02
PROVIDERS: PCP Internal Medicine; Visit Provider Obstetrics & Gynecology
DX: Z11.3 Encounter for screening for infections with a predominantly sexual mode of transmission (principal); N92.1 Excessive and frequent menstruation with irregular cycle; N93.9 Abnormal uterine and vaginal bleeding, unspecified; N76.0 Acute vaginitis; B96.89 Other specified bacterial agents as the cause of diseases classified elsewhere
CPT/HCPCS: 36415; 84443; 84702; 85027; 87480; 87491; 87510; 87591; 87660

== ENCOUNTER 2021-05-14 15:11 | Outpatient (REF) | payer OTHER, SELFPAY ==
--- NOTE | ~2021-05-14 | US_ITS ---
EXAMINATION: US PELVIS CLINICAL INFORMATION: Abnormal uterine and vaginal bleeding. COMPARISON: Ultrasound 12/30/2016. TECHNIQUE: Transverse abdominal and transvaginal imaging of pelvis was performed. FINDINGS: The uterus is retroverted and retroflexed, and measuring 7.9 cm in length, 4.4 cm in AP and 5.5 cm wide. The myometrium is homogeneous in echotexture. The endometrial thickness is 0.5 cm. Right ovary measures 4.0 x 3.3 x 2.5 cm and volume 17.3 mL. Previously the right ovary measured 4.2 x 3.4 x 2.4 cm. There is anechoic cyst measuring 2.7 x 1.8 x 2.1 cm. The left ovary measures 3.1 x 2.1 x 2.1 cm and volume 7.2 mL. Previously left ovary measures 2.8 x 2.0 x 2.2 cm. There is a moderate amount of free fluid in the cul-de-sac. US/US pelvic and transvaginal IMPRESSION: There is anechoic 2.7 cm cyst right ovary. A simple cyst in right ovary was seen in 2017 measuring 2.1 cm. The left ovary and the uterus appears unremarkable.
== END 2021-05-14 15:12 | disposition home or self-care (01) ==
LOC: HO.US 15:11
PROVIDERS: Visit Provider Obstetrics & Gynecology
DX: E66.9 Obesity, unspecified (principal); N93.9 Abnormal uterine and vaginal bleeding, unspecified; Z79.899 Other long term (current) drug therapy; Z71.3 Dietary counseling and surveillance; Z98.84 Bariatric surgery status; Z98.890 Other specified postprocedural states; Z87.19 Personal history of other diseases of the digestive system; Z68.35 Body mass index [BMI] 35.0-35.9, adult
CPT/HCPCS: 76830; 76856

== ENCOUNTER 2021-05-16 14:31 | Outpatient (REF) | payer OTHER, SELFPAY ==
[2021-05-16 14:55] LABS: Glucose Urine UA NEG (NEG); Leukocyte Esterase Urine 2+ (NEG); Nitrite Urine NEG (NEG); Specific Gravity - Urine 1.025 (1.005-1.025); Urine Blood TRACE (NEG); Urine Ketones >=80 MG/DL (NEG); Urine Protein 2+ MG/DL (NEG-TRACE)
[2021-05-16 15:01] LABS: Appearance Urine CLOUDY; Color Urine YELLOW
[2021-05-16 15:48] LABS: Bacteria Urine 1+ /LPF; Squamous Epithelial Cell Urine 2+ /LPF
[2021-05-16 15:49] LABS: Amorphous Sediment Urine 4+ /LPF; Calcium Oxalate Crystals Urine 2+ /LPF
== END 2021-05-16 14:32 | disposition home or self-care (01) ==
LOC: HO.LNP 14:31
PROVIDERS: Visit Provider Family Medicine
DX: R82.90 Unspecified abnormal findings in urine (principal); R30.0 Dysuria
CPT/HCPCS: 81001; 81003; 87086

== ENCOUNTER → 2021-05-29 15:53 | Outpatient (BNVA) | payer OTHER, SELFPAY | PROVIDERS: PCP Internal Medicine; Visit Provider Obstetrics & Gynecology ==

== ENCOUNTER 2021-06-04 08:13 | Outpatient (REF) | payer OTHER, SELFPAY ==
[2021-06-05 06:02] LABS: CT PCR NOT DETECTED (Not Detect.); NG PCR NOT DETECTED (Not Detect.)
[2021-06-05 09:37] LABS: BV Int Neg Control Negative (Negative); BV Int Pos Control Positive (Positive)
[2021-06-08 01:36] LABS: HPV 16 RNA NOT DETECTED (NOT DETECTED); HPV mRNA E6/E7 rflx Detected (Not Detected)
== END 2021-06-04 08:14 | disposition home or self-care (01) ==
LOC: HO.LAB 08:13
PROVIDERS: Advanced Practice Midwife; Visit Provider Dietitian, Registered
DX: Z01.419 Encounter for gynecological examination (general) (routine) without abnormal findings (principal); Z11.3 Encounter for screening for infections with a predominantly sexual mode of transmission; Z11.51 Encounter for screening for human papillomavirus (HPV); N89.8 Other specified noninflammatory disorders of vagina; Z20.2 Contact with and (suspected) exposure to infections with a predominantly sexual mode of transmission; Z71.3 Dietary counseling and surveillance
CPT/HCPCS: 87480; 87491; 87510; 87591; 87624; 87625; 87660; 88142; 97803

== ENCOUNTER → 2021-06-17 09:56 | Outpatient (BNVA) | payer OTHER, SELFPAY | PROVIDERS: Visit Provider Obstetrics & Gynecology | DX: Z30.46 Encounter for surveillance of implantable subdermal contraceptive (principal); Z30.09 Encounter for other general counseling and advice on contraception | CPT/HCPCS: 11982 ==

== ENCOUNTER 2021-07-02 08:34 | Outpatient (REF) | payer OTHER, SELFPAY | END 2021-07-02 08:35 | disposition home or self-care (01) | LOC: HO.LAB 08:34 | PROVIDERS: Visit Provider Dietitian, Registered | DX: R87.610 Atypical squamous cells of undetermined significance on cytologic smear of cervix (ASC-US) (principal); R87.810 Cervical high risk human papillomavirus (HPV) DNA test positive; E66.9 Obesity, unspecified; Z68.33 Body mass index [BMI] 33.0-33.9, adult; Z71.3 Dietary counseling and surveillance | CPT/HCPCS: 57454; 88305; 97803 ==

== ENCOUNTER → 2021-07-31 10:05 | Outpatient (BNVA) | payer OTHER, SELFPAY | PROVIDERS: Visit Provider Surgery ==

== ENCOUNTER 2021-08-27 06:50 | Outpatient (REF) | payer OTHER, SELFPAY ==
[2021-08-27 11:24] LABS: MANUAL DIFF FLAG NO
[2021-08-27 11:32] LABS: Basophils Percent Auto 0.2 % (0-2); Eosinophils Absolute Auto 0.1 X10*3/uL (0.0-0.4); Eosinophils Percent Auto 1.1 % (0-4); Hematocrit 36.9 % (37-47); Imm Gran Abs Auto 0.02 X10*3/uL (0.00-0.03); Imm Gran Pct Auto 0.2 % (0.0-0.4); Lymphocytes Absolute Auto 1.6 X10*3/uL (1.2-4.9); Lymphocytes Percent Auto 18.3 % (20-40); Mean Corpuscular HGB Conc 32.5 g/dl (31.0-35.0); Mean Corpuscular Hemoglobin 30.2 pg (27.0-33.0); Mean Corpuscular Volume 92.7 fL (80-98); Mean Platelet Volume 12.5 fL (9.4-12.3); Monocytes Absolute Auto 0.5 X10*3/uL (0.1-1.2); Neutrophils Absolute Auto 6.3 X10*3/uL (2.0-8.3); Neutrophils Percent Auto 74.2 % (45-73); Platelet Count 249 X10*3/uL (160-400); Red Blood Count 3.98 X10*6/uL (4.20-5.50); Red Cell Distribution Width 14.1 % (11.0-16.0); White Blood Count 8.5 X10*3/uL (4.8-10.8)
[2021-08-27 11:57] LABS: Alanine Aminotransferase 15 U/L (0-31); Albumin Level 3.6 g/dL (3.5-5.0); Alkaline Phosphatase 70 U/L (39-117); Anion Gap 13 (12-20); Aspartate Amino Transferase 14 U/L (5-31); Bilirubin Total 0.6 mg/dL (0.0-1.0); Blood Urea Nitrogen 10 mg/dL (9-16); Calcium 8.9 mg/dL (8.4-10.2); Carbon Dioxide 25 mmol/L (22-29); Chloride 107 mmol/L (96-108); Cholesterol 107 mg/dL; Estimated Glomerular Filt Rate > 60; Glucose Random 81 mg/dL (60-115); HDL Cholesterol 23 mg/dL; LDL Cholesterol Calculated 68 mg/dl; Magnesium 1.9 mg/dL (1.6-2.6); Potassium 3.8 mmol/L (3.3-5.1); Sodium 141 mmol/L (135-145); Total Protein 6.2 g/dL (6.5-8.0); Triglycerides 82 mg/dL
[2021-08-27 12:12] LABS: Thyroid Stimulating Hormone 1.44 uIU/mL (0.32-4.0); Vitamin D 25-OH Total 37.1 ng/mL (>30)
[2021-08-27 12:18] LABS: Folate 3.2 ng/mL (> or = 4.0); Vitamin B12 467 pg/mL (200-900)
== END 2021-08-27 06:51 | disposition home or self-care (01) ==
LOC: HO.HMGCLDS 06:50
PROVIDERS: PCP Internal Medicine; Visit Provider Internal Medicine
DX: E66.9 Obesity, unspecified (principal); E78.00 Pure hypercholesterolemia, unspecified; R73.02 Impaired glucose tolerance (oral); Z98.84 Bariatric surgery status
CPT/HCPCS: 36415; 80053; 80061; 82306; 82607; 82746; 83735; 84439; 84443; 85025

== ENCOUNTER 2021-09-17 13:55 | Outpatient (REF) | payer OTHER, SELFPAY | END 2021-09-17 13:56 | disposition home or self-care (01) | LOC: HO.LAB 13:55 | PROVIDERS: Visit Provider Obstetrics & Gynecology | DX: R87.610 Atypical squamous cells of undetermined significance on cytologic smear of cervix (ASC-US) (principal); R87.810 Cervical high risk human papillomavirus (HPV) DNA test positive | CPT/HCPCS: 57454; 88305 ==

== ENCOUNTER → 2021-10-01 10:29 | Outpatient (BNVA) | payer OTHER, SELFPAY | PROVIDERS: Referring Provider Internal Medicine; Visit Provider Physician Assistant Surgical ==

== ENCOUNTER → 2021-10-31 08:34 | Outpatient (BNVA) | payer OTHER, SELFPAY | PROVIDERS: Visit Provider Dietitian, Registered | DX: E66.3 Overweight (principal); Z68.25 Body mass index [BMI] 25.0-25.9, adult | CPT/HCPCS: 97803 ==

== ENCOUNTER 2021-11-27 09:46 | Outpatient (REF) | payer OTHER, SELFPAY ==
[2021-11-27 12:49] LABS: HCG Quantitative < 2 mIU/mL
== END 2021-11-27 09:47 | disposition home or self-care (01) ==
LOC: HO.LAB 09:46
PROVIDERS: PCP Internal Medicine; Visit Provider Advanced Practice Midwife
DX: N92.6 Irregular menstruation, unspecified (principal); K90.49 Malabsorption due to intolerance, not elsewhere classified; R73.02 Impaired glucose tolerance (oral); E50.9 Vitamin A deficiency, unspecified; E55.9 Vitamin D deficiency, unspecified; I95.9 Hypotension, unspecified; Z98.84 Bariatric surgery status; Z90.3 Acquired absence of stomach [part of]; Z88.0 Allergy status to penicillin
CPT/HCPCS: 36415; 84702

== ENCOUNTER → 2021-12-30 10:02 | Outpatient (BNVA) | payer OTHER, SELFPAY | PROVIDERS: Referring Provider Internal Medicine; Visit Provider Physician Assistant Surgical ==

== ENCOUNTER 2022-01-02 07:47 | Outpatient (REF) | payer OTHER, SELFPAY ==
[2022-01-02 11:02] LABS: MANUAL DIFF FLAG NO
[2022-01-02 11:17] LABS: Basophils Percent Auto 0.2 % (0-2); Eosinophils Absolute Auto 0.1 X10*3/uL (0.0-0.4); Eosinophils Percent Auto 0.5 % (0-4); Imm Gran Abs Auto 0.03 X10*3/uL (0.00-0.03); Imm Gran Pct Auto 0.3 % (0.0-0.4); Lymphocytes Absolute Auto 1.8 X10*3/uL (1.2-4.9); Mean Corpuscular HGB Conc 31.6 g/dl (31.0-35.0); Mean Corpuscular Hemoglobin 30.2 pg (27.0-33.0); Mean Corpuscular Volume 95.5 fL (80.0-98.0); Monocytes Absolute Auto 0.5 X10*3/uL (0.1-1.2); Monocytes Percent Auto 5.6 % (2-11); Neutrophils Absolute Auto 7.2 x10*3/uL (2.0-8.3); Neutrophils Percent Auto 74.4 % (45-73); Platelet Count 295 X10*3/uL (160-400); Red Blood Count 3.98 X10*6/uL (4.20-5.50); Red Cell Distribution Width 13.2 % (11.0-16.0); White Blood Count 9.7 X10*3/uL (4.8-10.8)
[2022-01-02 11:32] LABS: Anion Gap 11 (12-20); Blood Urea Nitrogen 15 mg/dL (9-16); Calcium 9.4 mg/dL (8.4-10.2); Carbon Dioxide 27 mmol/L (22-29); Chloride 103 mmol/L (96-108); Cholesterol 125 mg/dL; Estimated Glomerular Filt Rate > 60; Glucose Random 87 mg/dL (60-115); HDL Cholesterol 38 mg/dL; Iron 84 mcg/dL (30-160); LDL Cholesterol Calculated 72 mg/dl; Percent Iron Saturation 29 % (15-50); Potassium 4.3 mmol/L (3.3-5.1); Sodium 137 mmol/L (135-145); Total Iron Binding Capacity 294 mcg/dL (228-428); Triglycerides 77 mg/dL; Unsaturated Iron Binding 210 ug/dL
[2022-01-02 11:40] LABS: Estimated Average Glucose 85 mg/dL; Hemoglobin A1c % 4.6 %
[2022-01-02 11:55] LABS: Ferritin 64 ng/mL (10-122); TSH reflex Free T4 1.61 uIU/mL (0.32-4.0); Vitamin D 25-OH Total 26.6 ng/mL (>30)
[2022-01-02 12:09] LABS: Folate 8.3 ng/mL (> or = 4.0); Vitamin B12 369 pg/mL (200-900)
[2022-01-03 13:51] LABS: Calcium (PTHI) 9.2 mg/dL (8.6-10.2); PTHI 41 pg/mL (14-64)
[2022-01-07 06:27] LABS: Zinc 83 mcg/dL (60-130)
[2022-01-08 16:17] LABS: Vitamin B1 14 nmol/L (8-30)
[2022-01-09 10:05] LABS: Vitamin A 39 mcg/dL (38-98)
== END 2022-01-02 07:48 | disposition home or self-care (01) ==
LOC: HO.HMGCLDS 07:47
PROVIDERS: Visit Provider Physician Assistant Surgical
DX: K91.2 Postsurgical malabsorption, not elsewhere classified (principal); Z90.3 Acquired absence of stomach [part of]
CPT/HCPCS: 36415; 80048; 80061; 82306; 82607; 82728; 82746; 83036; 83540; 83970; 84425; 84443; 84590; 84630; 85025

== ENCOUNTER 2022-01-23 08:40 | Outpatient (REF) | payer OTHER, SELFPAY ==
[2022-01-24 01:37] LABS: CT PCR NOT DETECTED (Not Detect.); NG PCR NOT DETECTED (Not Detect.)
[2022-01-24 09:00] LABS: BV Int Neg Control Negative (Negative); BV Int Pos Control Positive (Positive)
== END 2022-01-23 08:41 | disposition home or self-care (01) ==
LOC: HO.LAB 08:40
PROVIDERS: Visit Provider Obstetrics & Gynecology
DX: Z30.09 Encounter for other general counseling and advice on contraception (principal); N93.9 Abnormal uterine and vaginal bleeding, unspecified; N76.0 Acute vaginitis; B96.89 Other specified bacterial agents as the cause of diseases classified elsewhere
CPT/HCPCS: 87480; 87491; 87510; 87591; 87660

== ENCOUNTER 2022-01-27 10:59 | Outpatient (REF) | payer OTHER, SELFPAY ==
--- NOTE | ~2022-01-27 | US_ITS ---
EXAMINATION: US PELVIS CLINICAL INFORMATION: Abnormal uterine and vaginal bleeding COMPARISON: Previous pelvic ultrasound May 2021 TECHNIQUE: Ultrasound of the pelvis is performed using both transabdominal and transvaginal transducers along with Doppler. Transvaginal imaging is performed due to inadequate visualization transabdominally. FINDINGS: The uterus is anteverted and retroflexed and measures 8.9 x 5 x 6 cm in dimension. No focal uterine lesion is seen. Endometrial thickness is normal measuring 0.7 cm. The right ovary is normal-appearing and measures 4.3 x 3.6 x 3.2 cm. The left ovary is enlarged and measures 4.7 x 3.8 x 4.6 cm. There is a 3.6 x 3.1 x 3.5 cm simple left ovarian cyst. There is no fluid in the pelvis. US/US pelvic and transvaginal IMPRESSION: New 3.6 x 3.1 x 3.5 cm simple left ovarian cyst.
[2022-01-28 04:20] LABS: HBsAGNum1 0.33 S/CO (0.00-0.99); Hepatitis B Surface Antigen Negative (Negative)
[2022-01-28 04:29] LABS: HIV AB/AG Nonreactive (Nonreactive); ~HepC Num1 0.11 S/CO (0.00-0.79); ~Hepatitis C Antibody Nonreactive (Nonreactive)
== END 2022-01-27 11:00 | disposition home or self-care (01) ==
LOC: HO.US 10:59
PROVIDERS: Visit Provider Obstetrics & Gynecology
DX: Z11.4 Encounter for screening for human immunodeficiency virus [HIV] (principal); N93.9 Abnormal uterine and vaginal bleeding, unspecified; B96.89 Other specified bacterial agents as the cause of diseases classified elsewhere; N76.0 Acute vaginitis
CPT/HCPCS: 36415; 76830; 76856; 86803; 87340; 87389

== ENCOUNTER 2022-03-28 12:54 | Outpatient (REF) | payer OTHER, SELFPAY ==
[2022-03-28 14:29] LABS: HCG Quantitative 39966 mIU/mL
== END 2022-03-28 12:55 | disposition home or self-care (01) ==
LOC: HO.LAB 12:54
PROVIDERS: PCP Internal Medicine; Visit Provider Internal Medicine
DX: Z34.90 Encounter for supervision of normal pregnancy, unspecified, unspecified trimester (principal)
CPT/HCPCS: 36415; 84702

== ENCOUNTER 2022-07-16 15:22 | Outpatient (REF) | payer OTHER, SELFPAY ==
--- NOTE | ~2022-07-16 | US_ITS ---
EXAMINATION: US SOFT TISSUE OF THE NECK CLINICAL INFORMATION: Localized swelling, mass and lump, neck-right lateral neck area. COMPARISON: None TECHNIQUE: Linear transducer grayscale and color Doppler examination of the right neck lump, area indicated by patient. FINDINGS: Area of palpable concern corresponds to morphologically benign-appearing cervical nodes not pathologically enlarged measuring 0.8 x 0.4 x 0.5 cm in 0.4 x 0.6 x 1.3 cm. These appear symmetric with respect to the contralateral side. US/US soft tiss head and/or neck IMPRESSION: Area of palpable concern corresponds to morphologically benign-appearing cervical nodes, not pathologically enlarged or otherwise suspicious in morphology, which appear symmetric with respect to the contralateral side. Given the finding is clinically palpable, recommend continued clinical surveillance to ensure stability or resolution.
== END 2022-07-16 15:23 | disposition home or self-care (01) ==
LOC: HO.HMGCX 15:22
PROVIDERS: Visit Provider Internal Medicine
DX: R22.1 Localized swelling, mass and lump, neck (principal)
CPT/HCPCS: 76536

== ENCOUNTER 2022-09-16 06:56 | Outpatient (REF) | payer OTHER, SELFPAY ==
[2022-09-16 07:04] LABS: MANUAL DIFF FLAG NO
[2022-09-16 07:45] LABS: Basophils Percent Auto 0.4 % (0-2); Eosinophils Absolute Auto 0.1 X10*3/uL (0.0-0.4); Eosinophils Percent Auto 1.1 % (0-4); Hematocrit 37.3 % (37.0-47.0); Hemoglobin 11.6 g/dl (12.0-16.0); Imm Gran Abs Auto 0.08 X10*3/uL (0.00-0.03); Imm Gran Pct Auto 0.9 % (0.0-0.4); Immature Retic Fraction 4.1 % (3.0-15.9); Lymphocytes Absolute Auto 2.1 X10*3/uL (1.2-4.9); Lymphocytes Percent Auto 24.4 % (20-40); Mean Corpuscular HGB Conc 31.1 g/dl (31.0-35.0); Mean Corpuscular Hemoglobin 30.7 pg (27.0-33.0); Mean Corpuscular Volume 98.7 fL (80.0-98.0); Mean Platelet Volume 11.4 fL (9.4-12.3); Monocytes Absolute Auto 0.5 X10*3/uL (0.1-1.2); Monocytes Percent Auto 5.8 % (2-11); Neutrophils Absolute Auto 5.7 x10*3/uL (2.0-8.3); Neutrophils Percent Auto 67.4 % (45-73); Platelet Count 264 X10*3/uL (160-400); Red Blood Count 3.78 X10*6/uL (4.20-5.50); Red Cell Distribution Width 12.7 % (11.0-16.0); Retic HGB Equivalent 35.5 pg (30.0-35.0); Reticulocyte Percent 1.4 % (0.5-1.8); Reticulocytes Absolute 0.052 X10*6/uL (0.026-0.095); White Blood Count 8.4 X10*3/uL (4.8-10.8)
[2022-09-16 08:05] LABS: Alanine Aminotransferase 22 U/L (0-31); Albumin Level 4.1 g/dL (3.5-5.0); Alkaline Phosphatase 72 U/L (39-117); Anion Gap 15 (12-20); Aspartate Amino Transferase 17 U/L (5-31); Bilirubin Total 0.6 mg/dL (0.0-1.0); Blood Urea Nitrogen 16 mg/dL (9-16); Calcium 9.1 mg/dL (8.4-10.2); Carbon Dioxide 26 mmol/L (22-29); Chloride 105 mmol/L (96-108); Cholesterol 119 mg/dL; Estimated Glomerular Filt Rate > 60; Glucose Random 81 mg/dL (60-115); HDL Cholesterol 42 mg/dL; Iron 82 mcg/dL (30-160); LDL Cholesterol Calculated 68 mg/dl; Percent Iron Saturation 23 % (15-50); Potassium 4.7 mmol/L (3.3-5.1); Sodium 141 mmol/L (135-145); Total Iron Binding Capacity 353 mcg/dL (228-428); Total Protein 6.5 g/dL (6.5-8.0); Triglycerides 47 mg/dL; Unsaturated Iron Binding 271 ug/dL
[2022-09-16 08:29] LABS: Ferritin 14 ng/mL (10-122); Free T4 (Free Thyroxine) 0.79 ng/dL (0.71-1.85); Thyroid Stimulating Hormone 0.54 uIU/mL (0.32-4.0)
[2022-09-16 08:35] LABS: Folate 15.2 ng/mL (> or = 4.0); Vitamin B12 397 pg/mL (200-900)
[2022-09-16 08:47] LABS: Vitamin D 25-OH Total 27.4 ng/mL (>30)
== END 2022-09-16 06:57 | disposition home or self-care (01) ==
LOC: HO.LAB 06:56
PROVIDERS: PCP Internal Medicine; Visit Provider Internal Medicine
DX: K91.2 Postsurgical malabsorption, not elsewhere classified (principal); R68.89 Other general symptoms and signs; Z90.3 Acquired absence of stomach [part of]
CPT/HCPCS: 36415; 80053; 80061; 82306; 82607; 82728; 82746; 83540; 84439; 84443; 85025; 85045

== ENCOUNTER 2022-10-08 14:06 | Outpatient (REF) | payer OTHER, SELFPAY ==
[2022-10-09 06:34] LABS: CT PCR NOT DETECTED (Not Detect.); NG PCR NOT DETECTED (Not Detect.)
[2022-10-09 09:34] LABS: BV Int Neg Control Negative (Negative); BV Int Pos Control Positive (Positive)
[2022-10-11 22:04] LABS: HPV mRNA E6/E7 rflx Not Detected (Not Detected)
== END 2022-10-08 14:07 | disposition home or self-care (01) ==
LOC: HO.LNP 14:06
PROVIDERS: PCP Internal Medicine; Visit Provider Obstetrics & Gynecology
DX: Z01.419 Encounter for gynecological examination (general) (routine) without abnormal findings (principal); Z11.51 Encounter for screening for human papillomavirus (HPV); N93.9 Abnormal uterine and vaginal bleeding, unspecified
CPT/HCPCS: 58100; 81025; 87480; 87491; 87510; 87591; 87624; 87660; 88142; 88305

== ENCOUNTER → 2022-12-02 09:46 | Outpatient (BNVA) | payer OTHER, SELFPAY | PROVIDERS: PCP Internal Medicine; Visit Provider Obstetrics & Gynecology | DX: Z13.89 Encounter for screening for other disorder (principal) ==

== ENCOUNTER → 2023-02-25 13:04 | Outpatient (BNVA) | payer OTHER, SELFPAY | PROVIDERS: PCP Internal Medicine; Visit Provider Obstetrics & Gynecology | DX: Z71.2 Person consulting for explanation of examination or test findings (principal); N93.9 Abnormal uterine and vaginal bleeding, unspecified; Z98.84 Bariatric surgery status | CPT/HCPCS: 99212 ==

== ENCOUNTER 2023-04-10 07:35 | Outpatient (REF) | payer OTHER, SELFPAY ==
[2023-04-10 11:34] LABS: MANUAL DIFF FLAG NO
[2023-04-10 11:40] LABS: Basophils Percent Auto 0.3 % (0-2); Eosinophils Absolute Auto 0.1 X10*3/uL (0.0-0.4); Hematocrit 32.5 % (37.0-47.0); Hemoglobin 9.9 g/dl (12.0-16.0); Imm Gran Abs Auto 0.11 X10*3/uL (0.00-0.03); Imm Gran Pct Auto 1.4 % (0.0-0.4); Lymphocytes Absolute Auto 1.4 X10*3/uL (1.2-4.9); Lymphocytes Percent Auto 18.5 % (20-40); Mean Corpuscular HGB Conc 30.5 g/dl (31.0-35.0); Mean Corpuscular Hemoglobin 28.9 pg (27.0-33.0); Mean Corpuscular Volume 94.8 fL (80.0-98.0); Mean Platelet Volume 11.8 fL (9.4-12.3); Monocytes Absolute Auto 0.4 X10*3/uL (0.1-1.2); Monocytes Percent Auto 5.2 % (2-11); Neutrophils Absolute Auto 5.7 x10*3/uL (2.0-8.3); Neutrophils Percent Auto 73.6 % (45-73); Platelet Count 265 X10*3/uL (160-400); Red Blood Count 3.43 X10*6/uL (4.20-5.50); Red Cell Distribution Width 13.2 % (11.0-16.0); White Blood Count 7.8 X10*3/uL (4.8-10.8)
[2023-04-10 12:03] LABS: Alanine Aminotransferase 18 U/L (0-31); Albumin Level 3.6 g/dL (3.5-5.0); Alkaline Phosphatase 70 U/L (39-117); Anion Gap 10 (12-20); Aspartate Amino Transferase 17 U/L (5-31); Bilirubin Total 0.7 mg/dL (0.0-1.0); Blood Urea Nitrogen 16 mg/dL (9-16); C Reactive Protein < 0.04 mg/dL (< or = 0.50); Calcium 8.7 mg/dL (8.4-10.2); Carbon Dioxide 26 mmol/L (22-29); Chloride 108 mmol/L (96-108); Cholesterol 108 mg/dL; Estimated Glomerular Filt Rate > 60; Glucose Random 86 mg/dL (60-115); HDL Cholesterol 36 mg/dL; Iron 28 mcg/dL (30-160); LDL Cholesterol Calculated 64 mg/dl; Percent Iron Saturation 9 % (15-50); Potassium 4.1 mmol/L (3.3-5.1); Sodium 140 mmol/L (135-145); Total Iron Binding Capacity 317 mcg/dL (228-428); Total Protein 5.7 g/dL (6.5-8.0); Triglycerides 43 mg/dL; Unsaturated Iron Binding 289 ug/dL
[2023-04-10 12:14] LABS: Hemoglobin A1c % < 4.0 %
[2023-04-10 12:44] LABS: Ferritin 6 ng/mL (10-122); Folate 14.8 ng/mL (> or = 4.0); TSH reflex Free T4 0.55 uIU/mL (0.32-4.0); Vitamin B12 460 pg/mL (200-900)
[2023-04-10 12:54] LABS: Insulin 5 uU/mL (2-29)
[2023-04-14 12:39] LABS: Calcium (PTHI) 8.6 mg/dL (8.6-10.2); PTHI 59 pg/mL (16-77)
[2023-04-15 03:03] LABS: Zinc 82 mcg/dL (60-130)
[2023-04-16 12:14] LABS: Vitamin A 26 mcg/dL (38-98)
[2023-04-20 06:09] LABS: Vitamin B1 12 nmol/L (8-30)
== END 2023-04-10 07:36 | disposition home or self-care (01) ==
LOC: HO.HMGCLDS 07:35
PROVIDERS: PCP Internal Medicine; Visit Provider Physician Assistant Surgical
DX: Z98.84 Bariatric surgery status (principal)
CPT/HCPCS: 36415; 80053; 80061; 82306; 82607; 82728; 82746; 83036; 83525; 83540; 83970; 84425; 84443; 84590; 84630; 85025; 86140

== ENCOUNTER 2023-06-24 08:10 | Outpatient (REF) | payer OTHER, SELFPAY ==
[2023-06-25 21:23] LABS: Rubella IgG Antibody 2.96 Index
[2023-06-26 22:53] LABS: TS Negative Control Passed; TS Panel A 0; TS Panel B 0; TS Positive Control Passed; TSpotTB Negative (Negative)
== END 2023-06-24 08:11 | disposition home or self-care (01) ==
LOC: HO.HMGCLDS 08:10
PROVIDERS: PCP Internal Medicine; Visit Provider Physician Assistant
DX: Z11.1 Encounter for screening for respiratory tuberculosis (principal); Z78.9 Other specified health status
CPT/HCPCS: 36415; 86481; 86735; 86762; 86765

== ENCOUNTER 2023-06-26 14:19 | Outpatient (AMB) | payer OTHER, SELFPAY ==
--- NOTE | 2023-06-26 14:47 | AM.OFFVISNUR ---
Intake Intake Visit Reasons: MMR vaccine Allergies Penicillins Allergy (Mild, Verified 02/25/23 13:45) RASH Immunizations M-M-R II (PF) Performing Provider: Samuel Larsen MD Administered by: Brittaney Michel RN on 06/26/23 14:47 Dose Route Admin Location Lot Number Expiration Date [employer] 0.5 mL subcut Left Arm [id number] 08/19/23 8673-5631-04 [employer] D VIS Given Date VIS Provided VIS Publication Date 06/26/23 Single Vaccine 21 Eligibility Eligibility Date Funding Source Not [facility] Eligible 06/26/23 Private Coding Diagnoses Assessment & Plan Assessment & Plan Orders: Orders MMR Immunization Today Z23 - Encounter for immunization
== END 2023-06-26 14:48 | disposition home or self-care (01) ==
PROVIDERS: PCP Internal Medicine
DX: Z23 Encounter for immunization (principal)
CPT/HCPCS: 90471; 90707

== ENCOUNTER 2023-07-14 08:47 | Outpatient (REF) | payer OTHER, SELFPAY ==
[2023-07-14 11:22] LABS: MANUAL DIFF FLAG NO
[2023-07-14 11:55] LABS: Basophils Percent Auto 0.4 % (0-2); Eosinophils Absolute Auto 0.1 X10*3/uL (0.0-0.4); Eosinophils Percent Auto 1.2 % (0-4); Hematocrit 33.7 % (37.0-47.0); Hemoglobin 10.5 g/dl (12.0-16.0); Imm Gran Abs Auto 0.02 X10*3/uL (0.00-0.03); Imm Gran Pct Auto 0.3 % (0.0-0.4); Immature Retic Fraction 5.8 % (3.0-15.9); Lymphocytes Absolute Auto 1.8 X10*3/uL (1.2-4.9); Lymphocytes Percent Auto 25.5 % (20-40); Mean Corpuscular HGB Conc 31.2 g/dl (31.0-35.0); Mean Corpuscular Hemoglobin 28.3 pg (27.0-33.0); Mean Corpuscular Volume 90.8 fL (80.0-98.0); Mean Platelet Volume 12.1 fL (9.4-12.3); Monocytes Absolute Auto 0.5 X10*3/uL (0.1-1.2); Monocytes Percent Auto 6.4 % (2-11); Neutrophils Absolute Auto 4.8 x10*3/uL (2.0-8.3); Neutrophils Percent Auto 66.2 % (45-73); Platelet Count 260 X10*3/uL (160-400); Red Blood Count 3.71 X10*6/uL (4.20-5.50); Red Cell Distribution Width 13.4 % (11.0-16.0); Retic HGB Equivalent 32.5 pg (30.0-35.0); Reticulocyte Percent 0.8 % (0.5-1.8); Reticulocytes Absolute 0.029 X10*6/uL (0.026-0.095); White Blood Count 7.2 X10*3/uL (4.8-10.8)
[2023-07-14 12:10] LABS: Ferritin 6 ng/mL (10-122); Iron 37 mcg/dL (30-160); Percent Iron Saturation 11 % (15-50); Total Iron Binding Capacity 343 mcg/dL (228-428); Unsaturated Iron Binding 306 ug/dL
[2023-07-14 12:18] LABS: Folate 14.4 ng/mL (> or = 4.0); Vitamin B12 403 pg/mL (200-900)
== END 2023-07-14 08:48 | disposition home or self-care (01) ==
LOC: HO.HMGCLDS 08:47
PROVIDERS: PCP Internal Medicine; Visit Provider Internal Medicine
DX: Z98.84 Bariatric surgery status (principal)
CPT/HCPCS: 36415; 82607; 82728; 82746; 83540; 85025; 85045

== ENCOUNTER 2023-08-11 09:19 | Outpatient (AMB) | payer OTHER, SELFPAY ==
--- NOTE | 2023-08-11 09:22 | MHC.OFFVISWM ---
Intake VS Expanded 08/11/23 09:30 BP 116/56 L Blood Pressure Location Rt brachial Blood Pressure Position Sitting Pulse 59 Pulse Source Pulse Oximeter Temp 98.2 F Temperature Source Temporal Artery Scan Pulse Oximetry 100 Oxygen Delivery Method Room Air Height 5 ft 2 in Weight 124 lb 6.4 oz BMI 22.8 Body Fat % 21.1 Body Fat Mass 26.2 Fat Free Mass 98.2 Visceral Fat Rating 2.0 Body Water % 56.4 Body Water Mass 70.2 Muscle Mass/Score 93.0 Basal Metabolic Rate/Score 1,314 Intake Visit Reasons: (OV) PO GBP 04/03/21 Allergies Penicillins Allergy (Mild, Verified 08/11/23 09:27) RASH Medication List - Last Reconciled 08/11/23 by TONE De La Torre ascorbate calcium (vitamin C) 500 mg PO BID calcium citrate 1,000 mg PO DAILY diclofenac sodium 1% (Arthritis Pain (diclofenac)) 4 grams topical QID ferrous sulfate (FeroSul) 325 mg PO BID fluticasone propionate 50 mcg/actuation 1 spray intranasal DAILY PRN [id number]-vit K 45 mg iron- 800 mcg-120 mcg (Bariatric Multivitamins) 1 cap PO DAILY omeprazole 20 mg PO DAILY HPI HPI Comments History of Present Illness Details This?is a?37?yo female who is s/p RYGB with HHR 04/03/[address] Metzger. Presents for 2 year 4 month post op visit. Weight at last visit on 02/25/2023/2021 was 131.8 pounds with a BMI of 24, weight today is 124.4 pounds, representing a 7.4 pound weight loss with a BMI today of 22.8.? No complaints of nausea, emesis, abdominal pain or reflux, or constipation. Pt reports issues with iron, dealing with fatigue/lightheadedness, planning to see hematology soon. 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 COVID-19 vaccine series started COVID-19 virus infection Dysplasia of cervix, low grade (AMRITA 1) GERD (gastroesophageal reflux disease) Hiatal hernia History of kidney stones History of pneumonia Impaired glucose tolerance Intestinal malabsorption following gastrectomy Irritable bowel syndrome Lateral meniscal tear Mass in neck Menometrorrhagia Multiple pigmented nevi Nexplanon removal Shortness of breath Tinea pedis Vitamin A deficiency Vitamin D deficiency Surgical History History of repair of hiatal hernia S/P gastric bypass History of esophagogastroduodenoscopy (EGD) History of removal of skin mole History of endoscopy Hx of colonoscopy History of tonsillectomy and adenoidectomy Hx of cholecystectomy H/O LEEP Family History Maternal Aunt Ovarian cancer Paternal Grandfather Lymphoma Mother Diabetes mellitus Acute arthritis Anxiety Family history of thyroid problem Bipolar 1 disorder Father Smokes Hypertension High cholesterol Sister No problems noted. 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 Metzger Code(s): Z98.84 - Bariatric surgery status Plan Pt will follow up with hematology as scheduled for possibility of iron infusions. Recent labs reviewed- low in vit A/D so supplements sent to pharmacy. Regarding her weight, pt reports she feels more comfortable around 130lbs and had cut out third shake. Suggested reincorporating part of a third shake if she would like; she still has considerable restriction with her solid food portions and cannot eat large volumes so we will not increase any meal portion sizes. RTC 6 months; encouraged pt to call for sooner appt if needed. Patient is at healthy BMI but with iron deficiency anemia and is not considered stable at this time. I spent a total of 30 minutes reviewing/updating records, examining the patient and counseling the patient on weight management as detailed above. Medications: New cholecalciferol (vitamin D3) 125 mcg PO DAILY 90 caps 3RF vitamin A palmitate 10,000 units PO DAILY 90 caps 3RF Coding Level of Care Code Est Pt Level 4 (21522) Diagnoses Hx of gastric bypass Z98.84
[2023-08-11 09:30] VITALS: BP 116/56; PULSE 59; TEMP 36.8; O2SAT 100; BMI 22.8
== END 2023-08-11 10:02 | disposition home or self-care (01) ==
PROVIDERS: PCP Internal Medicine; Visit Provider Physician Assistant Surgical
DX: D50.9 Iron deficiency anemia, unspecified (principal); Z98.84 Bariatric surgery status
CPT/HCPCS: 99214

== ENCOUNTER → 2023-08-11 09:19 | Outpatient (BNVA) | payer OTHER, SELFPAY | PROVIDERS: PCP Internal Medicine; Visit Provider Physician Assistant Surgical | DX: Z98.84 Bariatric surgery status (principal) | CPT/HCPCS: 99212 ==

== ENCOUNTER → 2023-08-24 09:05 | Outpatient (BNV) | payer OTHER, SELFPAY | PROVIDERS: PCP Internal Medicine; Visit Provider Internal Medicine Medical Oncology | DX: D50.9 Iron deficiency anemia, unspecified (principal) | CPT/HCPCS: 99204; 99213 ==

== ENCOUNTER 2023-09-01 12:56 | Outpatient (REF) | payer OTHER, SELFPAY | END 2023-09-01 12:57 | disposition home or self-care (01) | LOC: HO.MDS 12:56 | PROVIDERS: Visit Provider Internal Medicine Medical Oncology | DX: D50.8 Other iron deficiency anemias (principal) | CPT/HCPCS: 96365; J1756 ==

== ENCOUNTER 2023-09-09 13:57 | Outpatient (REF) | payer OTHER, SELFPAY | END 2023-09-09 13:58 | disposition home or self-care (01) | LOC: HO.MDS 13:57 | PROVIDERS: Visit Provider Internal Medicine Medical Oncology | DX: D50.8 Other iron deficiency anemias (principal) | CPT/HCPCS: 96365; J1756 ==

== ENCOUNTER 2023-09-16 13:50 | Outpatient (REF) | payer OTHER, SELFPAY | END 2023-09-16 13:51 | disposition home or self-care (01) | LOC: HO.MDS 13:50 | PROVIDERS: Visit Provider Internal Medicine Medical Oncology | DX: D50.8 Other iron deficiency anemias (principal) | CPT/HCPCS: 96365; J1756 ==

== ENCOUNTER 2023-09-23 13:54 | Outpatient (REF) | payer OTHER, MEDICAID, SELFPAY ==
[2023-09-23 14:27] LABS: MANUAL DIFF FLAG NO
[2023-09-23 14:31] LABS: Basophils Percent Auto 0.2 % (0-2); Eosinophils Absolute Auto 0.1 X10*3/uL (0.0-0.4); Eosinophils Percent Auto 2.2 % (0-4); Hematocrit 32.3 % (37.0-47.0); Hemoglobin 10.2 g/dl (12.0-16.0); Imm Gran Abs Auto 0.01 X10*3/uL (0.00-0.03); Imm Gran Pct Auto 0.2 % (0.0-0.4); Lymphocytes Absolute Auto 1.5 X10*3/uL (1.2-4.9); Lymphocytes Percent Auto 25.8 % (20-40); Mean Corpuscular HGB Conc 31.6 g/dl (31.0-35.0); Mean Corpuscular Hemoglobin 30.1 pg (27.0-33.0); Mean Corpuscular Volume 95.3 fL (80.0-98.0); Monocytes Absolute Auto 0.4 X10*3/uL (0.1-1.2); Monocytes Percent Auto 6.3 % (2-11); Neutrophils Absolute Auto 3.9 x10*3/uL (2.0-8.3); Neutrophils Percent Auto 65.3 % (45-73); Platelet Count 230 X10*3/uL (160-400); Red Blood Count 3.39 X10*6/uL (4.20-5.50); White Blood Count 5.9 X10*3/uL (4.8-10.8)
[2023-09-23 15:02] LABS: Ferritin 88 ng/mL (10-122)
== END 2023-09-23 13:55 | disposition home or self-care (01) ==
LOC: HO.MDS 13:54
PROVIDERS: Visit Provider Internal Medicine Medical Oncology
DX: D50.8 Other iron deficiency anemias (principal)
CPT/HCPCS: 36415; 82728; 85025; 96365; J1756

== ENCOUNTER 2023-09-29 15:23 | Outpatient (REF) | payer OTHER, MEDICAID, SELFPAY | END 2023-09-29 15:24 | disposition home or self-care (01) | LOC: HO.MDS 15:23 | PROVIDERS: Visit Provider Internal Medicine Medical Oncology | DX: D50.8 Other iron deficiency anemias (principal) | CPT/HCPCS: 96365; J1756 ==

== ENCOUNTER 2023-10-07 11:15 | Outpatient (REF) | payer OTHER, MEDICAID, SELFPAY | END 2023-10-07 11:16 | disposition home or self-care (01) | LOC: HO.MDS 11:15 | PROVIDERS: Visit Provider Internal Medicine Medical Oncology | DX: D50.8 Other iron deficiency anemias (principal) | CPT/HCPCS: 96365; J1756 ==

== ENCOUNTER 2023-10-14 11:59 | Outpatient (REF) | payer OTHER, MEDICAID, SELFPAY | END 2023-10-14 12:00 | disposition home or self-care (01) | LOC: HO.MDS 11:59 | PROVIDERS: Visit Provider Internal Medicine Medical Oncology | DX: D50.8 Other iron deficiency anemias (principal) | CPT/HCPCS: 96365; J1756 ==

== ENCOUNTER 2023-10-21 14:29 | Outpatient (REF) | payer OTHER, MEDICAID, SELFPAY ==
[2023-10-21 15:02] LABS: MANUAL DIFF FLAG NO
[2023-10-21 15:08] LABS: Basophils Percent Auto 0.3 % (0-2); Eosinophils Absolute Auto 0.1 X10*3/uL (0.0-0.4); Eosinophils Percent Auto 1.4 % (0-4); Hematocrit 36.3 % (37.0-47.0); Hemoglobin 11.7 g/dl (12.0-16.0); Imm Gran Abs Auto 0.03 X10*3/uL (0.00-0.03); Imm Gran Pct Auto 0.3 % (0.0-0.4); Lymphocytes Absolute Auto 2.2 X10*3/uL (1.2-4.9); Lymphocytes Percent Auto 22.8 % (20-40); Mean Corpuscular HGB Conc 32.2 g/dl (31.0-35.0); Mean Platelet Volume 10.4 fL (9.4-12.3); Monocytes Absolute Auto 0.7 X10*3/uL (0.1-1.2); Neutrophils Absolute Auto 6.5 x10*3/uL (2.0-8.3); Neutrophils Percent Auto 68.2 % (45-73); Platelet Count 256 X10*3/uL (160-400); Red Blood Count 3.78 X10*6/uL (4.20-5.50); Red Cell Distribution Width 13.9 % (11.0-16.0); White Blood Count 9.6 X10*3/uL (4.8-10.8)
== END 2023-10-21 14:30 | disposition home or self-care (01) ==
LOC: HO.MDS 14:29
PROVIDERS: Visit Provider Internal Medicine Medical Oncology
DX: D50.8 Other iron deficiency anemias (principal)
CPT/HCPCS: 36415; 85025; 96365; J1756

== ENCOUNTER 2023-11-09 09:02 | Outpatient (REF) | payer OTHER, MEDICAID, SELFPAY | END 2023-11-09 09:03 | disposition home or self-care (01) | LOC: HO.LAB 09:02 | PROVIDERS: PCP Internal Medicine; Visit Provider Internal Medicine Medical Oncology | DX: D50.9 Iron deficiency anemia, unspecified (principal) | CPT/HCPCS: 36415; 80053; 82728; 85025; 86850; 86900; 86901 ==

== ENCOUNTER 2024-02-03 15:30 | Outpatient (AMB) | payer OTHER, SELFPAY ==
--- NOTE | 2024-02-03 15:35 | A.OFFVIS_ITS ---
Intake VS Expanded 02/03/24 15:42 BP 121/58 L Blood Pressure Location Rt brachial Blood Pressure Position Sitting Pulse 72 Pulse Source Pulse Oximeter Temp 97.5 F Temperature Source Temporal Artery Scan Pulse Oximetry 98 Oxygen Delivery Method Room Air Height 5 ft 3 in Weight 138 lb 12.8 oz BMI 24.6 Body Fat % 24.8 Body Fat Mass 104.2 Fat Free Mass 104.2 Visceral Fat Rating 3.0 Body Water % 53.7 Body Water Mass 74.6 Muscle Mass/Score 99.0 Basal Metabolic Rate/Score 1,401 Intake Visit Reasons: (OV) PO GBP 04/03/21 Allergies Penicillins Allergy (Mild, Verified 08/24/23 09:10) RASH HPI HPI Comments History of Present Illness Details This?is a?37?yo female who is s/p RYGB with HHR 04/03/[address] Metzger. Presents for 2 year 10 month post op visit. Weight at last visit on 08/11/2023 was 124.4 pounds with a BMI of 22.8, weight today is 1 38.8 pounds with a BMI today of 25.4.? No complaints of nausea, emesis, abdominal pain or reflux, or constipation. Pt reports she has undergone iron infusions back in the early part of the year. She feels significantly better overall and much healthier. She states that she would like to lose approximately 6-8 more lb possibly. Present meal plan includes: 6-8am premier protein RTD shake 1130 or 12 meal salad/veggies w cottage cheese or HB egg 3-4pm another shake 6pm sometimes a premier protein cereal o r [place] islander yogurt or fit crunch bar takes shyam MVI drinking 96 oz water daily Exercise routine includes: treadmill 45 min 4 x per week. 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 COVID-19 vaccine series started COVID-19 virus infection Dysplasia of cervix, low grade (AMRITA 1) GERD (gastroesophageal reflux disease) Hiatal hernia History of kidney stones History of pneumonia Impaired glucose tolerance Intestinal malabsorption following gastrectomy Irritable bowel syndrome Lateral meniscal tear Mass in neck Menometrorrhagia Multiple pigmented nevi Nexplanon removal Shortness of breath Tinea pedis Vitamin A deficiency Vitamin D deficiency Surgical History History of repair of hiatal hernia S/P gastric bypass History of esophagogastroduodenoscopy (EGD) History of removal of skin mole History of endoscopy Hx of colonoscopy History of tonsillectomy and adenoidectomy Hx of cholecystectomy H/O LEEP Family History Maternal Aunt Ovarian cancer Paternal Grandfather Lymphoma Mother Diabetes mellitus Acute arthritis Anxiety Family history of thyroid problem Bipolar 1 disorder Father Smokes Hypertension High cholesterol Sister No problems noted. 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[employer] [place] Sexual orientation: Straight/Heterosexual Gender identity: Female Cognitive needs: No Hearing needs: No Vision needs: No Female Reproductive History Menstrual Age of Menarche: 13 Physical Exam Const General: healthy appearing and no acute distress Resp Effort & Inspection: normal respiratory effort Auscultation: clear to auscultation bilaterally Cardio Rate: regular rate Rhythm: regular rhythm GI Auscultation: normal bowel sounds Extrem General: Yes normal to inspection Assessment & Plan Assessment & Plan (1) Hx of gastric bypass: Comment: Laparoscopic Deisi en Y gastric bypass with hiatal hernia repair 04/2021 Dr. Metzger Code(s): Z98.84 - Bariatric surgery status Plan: Patient wishes to lose a little bit of weight. Recommend changing meal plans slightly: -8am premier protein RTD shake, half the shake with an additional 4 oz uns weetened almond milk 1130 or 12 meal salad/veggies w cottage cheese or HB egg 3-4pm another shake 6pm half cup fresh fruit. Increase exercise on the treadmill, speed 4.5, incline 3-8. Goal of 400 to 450 calories 4 times a week. Return to clinic for 3 year follow-up in April Coding Level of Care Code Est Pt Level 3 (69168) Diagnoses Hx of gastric bypass Z98.84
[2024-02-03 15:42] VITALS: BP 121/58; PULSE 72; TEMP 36.4; O2SAT 98; BMI 24.6
== END 2024-02-03 16:45 | disposition home or self-care (01) ==
PROVIDERS: PCP Internal Medicine; Visit Provider Physician Assistant Surgical
DX: Z71.3 Dietary counseling and surveillance (principal); Z98.84 Bariatric surgery status
CPT/HCPCS: 99213

== ENCOUNTER → 2024-02-03 15:30 | Outpatient (BNVA) | payer OTHER, SELFPAY | PROVIDERS: PCP Internal Medicine; Visit Provider Physician Assistant Surgical | DX: Z71.3 Dietary counseling and surveillance (principal); Z98.84 Bariatric surgery status | CPT/HCPCS: 99212 ==

== ENCOUNTER 2024-02-15 12:18 | Outpatient (AMB) | payer OTHER, SELFPAY ==
[2024-02-15 12:23] VITALS: BP 104/52; PULSE 58; O2SAT 99; BMI 24.5
--- NOTE | 2024-02-15 12:23 | A.OFFPC_ITS ---
Vital Signs 02/15/24 12:23 Height 5 ft 2 in Weight 134 lb BMI 24.5 BP 104/52 L Blood Pressure Location Lt brachial Position Sitting Pulse 58 Pulse Source Pulse Oximeter Pulse Oximetry (%) 99 Oxygen Delivery Method Room Air Intake Visit Reasons: Annual Exam- NEEDS PHQ-9 + THRIVE Allergies Penicillins Allergy (Mild, Verified 02/15/24 12:24) RASH Medication List - Last Reconciled 02/15/24 by Samuel Larsen MD ascorbate calcium (vitamin C) 500 mg PO BID blood sugar diagnostic (FreeStyle Lite Strips) As directed check the BS QD blood-glucose meter (FreeStyle Lite Meter kit) As directed calcium citrate 1,000 mg PO DAILY cholecalciferol (vitamin D3) 125 mcg PO DAILY ferrous sulfate (FeroSul) 325 mg PO BID fluticasone propionate 50 mcg/actuation 1 spray intranasal DAILY PRN lancets (FreeStyle Lancets) As directed check BS QD hbxicomevrfy-ned-cutc-FA-vit K 45 mg iron- 800 mcg-120 mcg (Bariatric Multivitamins) 1 cap PO DAILY omeprazole 20 mg PO DAILY polymyxin B sulf-trimethoprim 10,000 unit- 1 mg/mL 1 drp ophthalmic (eye) QID 7 days vitamin A palmitate 10,000 units PO DAILY Tobacco use date assessed: 02/15/24 Dental Screening Dental Screen Date: 02/15/24 Did you have a dental visit in the last 12 months?: Yes Did you have a dental problem in the last 6 months where you did not have access to dental care?: No Was dental information given to patient?: Patient has dentist HPI Annual Exam- NEEDS PHQ-9 + THRIVE HPI Details 38-year-old female with a history of gas tric bypass coming in for physical exam last seen in August 2022. Patient follows up with Hematology- Oncology for anemia iron deficiency arranged for IV iron Venofer weekly x8. complains of having irregular BS from high 200 + to hypoglycemic. advised frequency feeding . decline endo referral for [facility] Medical History (Updated 02/15/24 @ 12:45 by Samuel Larsen MD) Intestinal malabsorption following gastrectomy Measles, mumps, rubella (MMR) vaccination status unknown Bacterial vaginosis Abnormal uterine bleeding (AUB) Overweight (BMI 25.0-29.9) Tinea pedis Mass in neck Dysplasia of cervix, low grade (AMRITA 1) COVID-19 virus infection Nexplanon removal Bacterial vaginosis Menometrorrhagia COVID-19 vaccine series started History of pneumonia Adjustment disorder, unspecified Vitamin A deficiency Vitamin D deficiency History of kidney stones Irritable bowel syndrome Shortness of breath Multiple pigmented nevi Lateral meniscal tear Bile salt-induced diarrhea Impaired glucose tolerance 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 Hiatal hernia GERD (gastroesophageal reflux disease) Surgical History (Updated 08/24/23 @ 10:05 by Frida Haynes MD) History of repair of hiatal hernia S/P gastric bypass History of esophagogastroduodenoscopy (EGD) History of removal of skin mole History of endoscopy Hx of colonoscopy History of tonsillectomy and adenoidectomy Hx of cholecystectomy H/O LEEP Family History Maternal Aunt Ovarian cancer Paternal Grandfather Lymphoma Mother Diabetes mellitus Acute arthritis Anxiety Family history of thyroid problem Bipolar 1 disorder Father Smokes Hypertension High cholesterol Sister No problems noted. 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 1. Little interest or pleasure in doing things: not at all 2. Feeling down, depressed, or hopeless: not at all 3. Trouble falling or staying asleep, or sleeping too much: not at all 4. Feeling tired or having little energy: not at all 5. Poor appetite or overeating: not at all 6. Feeling bad about yourself - or that you are a failure or have let yourself or your family down: not at all 7. Trouble concentrating on things, such as reading the newspaper or watching television: not at all 8. Moving or speaking so slowly that other people could have noticed. Or the opposite - being so fidgety or restless that you have been moving around a lot more than usual: not at all 9. Thoughts that you would be better off or of hurting yourself in some way: not at all Total score: 0 Depression Screening Interpretation: Negative Depression Screening Done: Yes Source: Developed by Drs. Rome Fay, Bridgette Winston, Elliott Cerda and colleagues, with an educational price from [employer]. Thrive Questionnaire Date Thrive assessed: 02/15/24 I am a: Patient What is your living situation today?: I have a steady place to live Within the past 12 months, did the food you bought not last and you didn't have the money to get more?: Never true Within the past 12 months, did you worry whether your food would run out before you got money to buy more?: Never true Do you have trouble paying for medicines?: No Do you have trouble getting transportation to medical appointments?: No Do you have trouble paying your heating and electricity bill?: No Do you have trouble taking care of your child, family member or friend?: No Do you have trouble with day-to-day activities such as bathing, preparing meals, shopping, managing finances, etc.?: No Are you currently unemployed and looking for a job?: No Are you interested in more education?: No Currently or been in a relationship where the following occur: no concerns reported THRIVE Score: 0 AUDIT C Alcohol Use Questionnaire (AUDIT-C) 1. How often do you have a drink containing alcohol?: Monthly or less 2. How many drinks containing alcohol do you have on a typical day when you are drinking?: 1 or 2 3. How often do you have six or more drinks on one occasion?: Never Total Score: 1 FLAVIA-7 AMB Questionnaire FLAVIA-7 Date FLAVIA - 7 assessed: 02/15/24 Feeling nervous, anxious, or on edge: 1 = Several days Not being able to stop or control worryin = Not at all Worrying too much about different things: 0 = Not at all Trouble relaxin = Not at all Being so restless that it is hard to sit still: 0 = Not at all Becoming easily annoyed or irritable: 0 = Not at all Feeling afraid as if something awful might happen: 0 = Not at all Total FLAVIA-7 score (0-4 normal; 5-9 mild; 10-14 moderate; 15-21 severe): 1 Source: Developed by Drs. Rome Fay, Bridgette Winston, Elliott Cerda and colleagues, with an educational price from [employer]. Review of Systems Const Denies poor appetite and Denies weakness Eyes Denies no additional complaints ENT Reports Normal hearing present, Denies dizziness, Denies nasal congestion, Denies tinnitus and Denies sore throat Card Denies chest pain, Denies syncope, Denies rapid heart rate and Denies dyspnea Resp Denies cough and Denies dyspnea GI Denies change in stool character, Reports constipation, Denies diarrhea, Denies nausea and Denies vomiting Denies urinary frequency, Denies difficulty voiding and Denies dysuria Neuro Reports Normal hearing present, Denies confusion, Denies dizziness, Denies syncope and Denies weakness Psych Denies confusion Physical exam (Primary Care) Vital Signs: Last Vital Signs Pulse 58 02/15/24 12:23 BP 104/52 L 02/15/24 12:23 Pulse Ox 99 02/15/24 12:23 Oxygen Delivery Method Room Air 02/15/24 12:23 BMI result Body Mass Index 24.5 Tobacco/Smoking Status: Tobacco use Status Tobacco use date assessed 02/15/24 02/15/24 12:30 Patient Tobacco Use Status Never used Tobacco 02/15/24 12:30 e-Cigarette/Vaping Use Never Used 02/15/24 12:30 PHQ-9: PHQ-9 Score PHQ-9: Total score 0 02/15/24 12:30 Depression Screening Interpretation: Negative Thrive Assessment: Date of Thrive Assessment Date Thrive assessed 02/15/24 02/15/24 12:30 Currently or been in a relationship where the following occur: no concerns reported Const General: No confusion Orientation/consciousness: No confusion HENMT Head: Yes normocephalic Ears: external ears normal and TM's normal bilaterally Face and sinus: Yes normal facial exam Mouth: moist mucous membranes Throat: Yes tonsils normal Eyes Conjunctivae: conjunctivae normal Pupils: Equal, round and reactive pupils present and Pupil accommodation reflex normal Direct Ophthalmoscopy: normal light reflex Neck Neck: No lymphadenopathy Thyroid: Thyroid normal Chest Chest palpation & inspection: normal inspection of the chest Resp Effort & Inspection: normal respiratory effort and no audible wheezes Auscultation: clear to auscultation bilaterally, no crackles, no wheezes and lung sounds not diminished Cardio Rate: regular rate Rhythm: regular rhythm Peripheral pulses: radial pulses present and dorsalis pedis present GI Palpation (GI): no masses Auscultation: normal bowel sounds and normoactive bowel sounds Rectal Exam - Female: deferred Skin General skin exam: no rashes or lesions noted Rashes: no rashes Neuro General: No confusion Cranial nerves: Yes Equal, round and reactive pupils present and Yes Normal hearing present Cognition (Neuro): normal cognition Gait exam (Neuro): Normal gait present Motor exam (neuro): 5/5 motor strength present throughout Deep tendon reflexes (DTR's): Right brachioradialis reflex intensity grade: 2+, Left brachioradialis reflex intensity grade: 2+, Right patellar reflex intensity grade: 2+ and Left patellar reflex intensity grade: 2+ Extrem General: No edema Assessment and Plan Assessment & Plan (1) Annual physical exam: Code(s): Z00.00 - Encounter for general adult medical examination without abnormal findings (2) Hx of gastric bypass: Comment: Laparoscopic Deisi en Y gastric bypass with hiatal hernia repair 04/2021 Dr. Metzger Code(s): Z.84 - Bariatric surgery status Plan: Continue to follow-up with bariatric surgeon (3) Iron deficiency anemia: Code(s): D50.9 - Iron deficiency anemia, unspecified Plan: Patient has been followed up by hematology oncology and receiving iron infusion (4) ASCUS with positive high risk HPV: Comment: AMRITA 2-3 status post LEEP cone was post cone ECC with negative margin in 07/22 Plan: Continue to follow-up with gynecology Orders: Orders Reticulocyte Count Today Z98.84 - Bariatric surgery status Vitamin D 25-OH Total Today Z98.84 - Bariatric surgery status Lipid Panel Today E78.00 - Pure hypercholesterolemia, unspecified, Z98.84 - Bariatric surgery status UA w Microscopic Today Z98.84 - Bariatric surgery status Thyroid Stimulating Hormone Today Z98.84 - Bariatric surgery status Free T4 (Free Thyroxine) Today Z98.84 - Bariatric surgery status Vitamin B12 and Folate Today Z98.84 - Bariatric surgery status Magnesium Today Z98.84 - Bariatric surgery status Coding Level of Care Code Est Pt Prev Care 18-39y([id number]) Diagnoses Annual physical exam Z00.00 Hx of gastric bypass Z98.84 Iron deficiency anemia D50.9 ASCUS with positive high risk HPV
== END 2024-02-15 13:03 | disposition home or self-care (01) ==
PROVIDERS: PCP Internal Medicine; Visit Provider Internal Medicine
DX: Z00.00 Encounter for general adult medical examination without abnormal findings (principal); Z98.84 Bariatric surgery status; D50.9 Iron deficiency anemia, unspecified
CPT/HCPCS: 99395

== ENCOUNTER 2024-03-02 10:36 | Outpatient (REF) | payer OTHER, MEDICAID, SELFPAY | END 2024-03-02 10:37 | disposition home or self-care (01) | LOC: HO.LAB 10:36 | PROVIDERS: Absent Provider Internal Medicine Medical Oncology; Visit Provider Internal Medicine | DX: E78.00 Pure hypercholesterolemia, unspecified (principal); Z98.84 Bariatric surgery status | CPT/HCPCS: 36415; 80061; 81001; 82306; 82607; 82746; 83735; 84439; 84443; 85045 ==

== ENCOUNTER 2024-08-03 10:01 | Outpatient (REF) | payer OTHER, SELFPAY ==
[2024-08-03 10:45] LABS: Appearance Urine Clear; Color Urine Dark Yellow; Glucose Urine UA Negative (Negative); Leukocyte Esterase Urine Small (1+) (Negative); Nitrite Urine Positive (Negative); PH 5.5 (5.0-9.0); Specific Gravity - Urine >= 1.030 (1.005-1.025); UMIC TRIGGER UACC YES; Urine Blood Negative (Negative); Urine Ketones Negative (Negative); Urine Protein Negative (Neg-Trace)
[2024-08-03 10:53] LABS: Bacteria Urine 4+ (None Seen); Hyaline Casts Urine 0-2 /LPF (0-2); RBC Urine 0-2 /HPF (0-2); UACC Culture Trigger YES; WBC Urine >50 /HPF (0-5)
[2024-08-03 11:08] LABS: Syphilis Screen Nonreactive (Nonreactive)
[2024-08-03 11:11] LABS: HBS Num1 103.56 mIU/mL (0-7.99); HBc Num1 0.12 S/CO (0.00-0.79); HBsAGNum1 0.33 S/CO (0.00-0.99); HIV AB/AG Nonreactive (Nonreactive); HIV Num 1 0.05 S/CO (0.00-0.99); Hepatitis B Core Antibody Nonreactive (Nonreactive); Hepatitis B Surface Antigen Negative (Negative); ~HepC Num1 0.13 S/CO (0.00-0.79); ~Hepatitis B Surface Antibody REACTIVE (Nonreactive); ~Hepatitis C Antibody Nonreactive (Nonreactive)
== END 2024-08-03 10:02 | disposition home or self-care (01) ==
LOC: HO.LAB 10:01
PROVIDERS: PCP Internal Medicine; Visit Provider Internal Medicine
DX: N89.8 Other specified noninflammatory disorders of vagina (principal); R79.89 Other specified abnormal findings of blood chemistry; R30.0 Dysuria; R82.79 Other abnormal findings on microbiological examination of urine
CPT/HCPCS: 36415; 81001; 86704; 86706; 86780; 86803; 87086; 87088; 87186; 87340; 87389

== ENCOUNTER 2024-09-06 15:18 | Outpatient (AMB) | payer OTHER, SELFPAY ==
--- NOTE | 2024-09-06 15:19 | A.OFFVIS_ITS ---
Vital Signs 09/06/24 15:20 Height 5 ft 2 in Weight 126 lb BMI 23.0 BP 110/66 Blood Pressure Location Lt brachial Position Sitting Intake Visit Reasons: control consult Allergies Penicillins Allergy (Mild, Verified 09/06/24 15:22) RASH Is last menstrual period known: Yes Last menstrual period: 08/19/24 HPI Comments Details: Presenting complaining of irregular menstrual cycles . Last co testing was in 10/2022 was negative preceded by AMRITA 111/21 [facility] Medical History (Updated 09/06/24 @ 15:43 by Drake Munoz MD) Abnormal uterine bleeding (AUB) Intestinal malabsorption following gastrectomy Measles, mumps, rubella (MMR) vaccination status unknown Bacterial vaginosis Overweight (BMI 25.0-29.9) Tinea pedis Mass in neck Dysplasia of cervix, low grade (AMRITA 1) COVID-19 virus infection Nexplanon removal Bacterial vaginosis Menometrorrhagia COVID-19 vaccine series started History of pneumonia Adjustment disorder, unspecified Vitamin A deficiency Vitamin D deficiency History of kidney stones Irritable bowel syndrome Shortness of breath Multiple pigmented nevi Lateral meniscal tear Bile salt-induced diarrhea Impaired glucose tolerance 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0 Other: The patient would like to defer pelvic exam for next visit Assessment & Plan Assessment & Plan (1) Abnormal uterine bleeding (AUB): Comment: Resolved Code(s): N93.9 - Abnormal uterine and vaginal bleeding, unspecified Category: Medical Plan: CBC, TSH, prolactin, HCG, and pelvic ultrasound ordered. Discussed with the patient the different causes of abnormal bleeding including thyroid disorders, uterine and ovarian pathology, endometrial hyperplasia, carcinoma and other potential causes. Discussed with the patient the work up including CBC (to r/o anemia), TSH, prolactin, pelvic Ultrasound, endometrial biopsy to r/o endometrial pathology. All questions answered and the patient verbalized understanding. Instructed the patient to schedule an appointment for an pelvic exam, endometrial biopsy in 2 weeks which GC/CT. Orders: Orders Prolactin Today N93.9 - Abnormal uterine and vaginal bleeding, unspecified TSH reflex Free T4 Today N93.9 - Abnormal uterine and vaginal bleeding, unspecified HCG Quantitative Today N93.9 - Abnormal uterine and vaginal bleeding, unspecified Complete Blood Count no Diff Today N93.9 - Abnormal uterine and vaginal bleeding, unspecified US pelvic and transvaginal Today N93.9 - Abnormal uterine and vaginal bleeding, unspecified Coding Level of Care Code Est Pt Level 3 (88443) Diagnoses Abnormal uterine bleeding (AUB) N93.9
[2024-09-06 15:20] VITALS: BP 110/66; BMI 23.0
== END 2024-09-06 15:54 | disposition home or self-care (01) ==
LOC: HO.HWS 15:18
PROVIDERS: PCP Internal Medicine; Visit Provider Obstetrics & Gynecology
DX: N93.9 Abnormal uterine and vaginal bleeding, unspecified (principal)
CPT/HCPCS: 99213

== ENCOUNTER 2024-09-08 13:55 | Outpatient (REF) | payer OTHER, SELFPAY ==
[2024-09-08 15:03] LABS: Hemoglobin 11.5 g/dl (12.0-16.0); Mean Corpuscular HGB Conc 31.1 g/dl (31.0-35.0); Mean Corpuscular Hemoglobin 29.8 pg (27.0-33.0); Mean Corpuscular Volume 95.9 fL (80.0-98.0); Mean Platelet Volume 10.5 fL (9.4-12.3); Platelet Count 231 X10*3/uL (160-400); Red Blood Count 3.86 X10*6/uL (4.20-5.50); Red Cell Distribution Width 13.2 % (11.0-16.0); White Blood Count 7.3 X10*3/uL (4.8-10.8)
[2024-09-08 17:01] LABS: HCG Quantitative < 2 mIU/mL; TSH reflex Free T4 0.67 uIU/mL (0.32-4.0)
[2024-09-09 07:54] LABS: Prolactin 11.2 ng/mL
== END 2024-09-08 13:56 | disposition home or self-care (01) ==
LOC: HO.LAB 13:55
PROVIDERS: PCP Internal Medicine; Visit Provider Obstetrics & Gynecology
DX: N93.9 Abnormal uterine and vaginal bleeding, unspecified (principal)
CPT/HCPCS: 36415; 84146; 84443; 84702; 85027

== ENCOUNTER 2024-09-09 07:52 | Outpatient (REF) | payer OTHER, SELFPAY | END 2024-09-09 07:53 | disposition home or self-care (01) | LOC: HO.US 07:52 | PROVIDERS: PCP Internal Medicine; Visit Provider Obstetrics & Gynecology | DX: N93.9 Abnormal uterine and vaginal bleeding, unspecified (principal) | CPT/HCPCS: 76830; 76856 ==

== ENCOUNTER → 2024-09-09 07:53 | Outpatient (BNV) | payer OTHER, SELFPAY | PROVIDERS: PCP Internal Medicine; Visit Provider Radiology Diagnostic Radiology | DX: N93.9 Abnormal uterine and vaginal bleeding, unspecified (principal) | CPT/HCPCS: 76830; 76856 ==

== ENCOUNTER → 2024-09-15 09:37 | Outpatient (BNVA) | payer OTHER, SELFPAY | PROVIDERS: PCP Internal Medicine; Visit Provider Internal Medicine ==

== ENCOUNTER 2024-09-15 09:45 | Outpatient (AMB) | payer OTHER, SELFPAY ==
[2024-09-15 09:48] VITALS: BP 106/54; PULSE 89; O2SAT 99; BMI 24.5
--- NOTE | 2024-09-15 09:48 | MHC.PC.OV ---
Vital Signs 09/15/24 09:48 Height 5 ft 2 in Weight 134 lb BMI 24.5 BP 106/54 L Blood Pressure Location Lt brachial Position Sitting Pulse 89 Pulse Source Pulse Oximeter Pulse Oximetry (%) 99 Oxygen Delivery Method Room Air Intake Visit Reasons: ear pain Intake Note: Pt reports slight pain in the throat but majority of the pain is in her ears, mainly the RT side. Front Desk Coordinator Required: No Accompanied by: Self / Same As Patient Allergies Penicillins Allergy (Mild, Verified 09/15/24 09:49) RASH Tobacco use date assessed: 02/15/24 Dental Screening Dental Screen Date: 02/15/24 HPI ear pain HPI Details 39-year-old female with a history of gastric bypass iron deficiency anemia having iron infusion coming in for follow-up./acute problem. Patient follows up with Hematology-Oncology for the iron deficiency anemia seen in July 19 on maintenance dose of iron patient also will follow-up with gynecology. 2 days R ear pain with sore throat, patient also is having dysuria and would like to have the urinalysis done. Discussed with the patient that I do not see any signs of infection in the throat nor in the ear and would like her to take care of allergies. Flonase nasal spray sent in. Patient can not tolerate the antihistamines because of nausea. FORMERLY [facility] Medical History (Updated 09/15/24 @ 10:10 by Samuel Larsen MD) Abnormal uterine bleeding (AUB) Intestinal malabsorption following gastrectomy Measles, mumps, rubella (MMR) vaccination status unknown Bacterial vaginosis Overweight (BMI 25.0-29.9) Tinea pedis Mass in neck Dysplasia of cervix, low grade (AMRITA 1) COVID-19 virus infection Nexplanon removal Bacterial vaginosis Menometrorrhagia COVID-19 vaccine series started History of pneumonia Adjustment disorder, unspecified Vitamin A deficiency Vitamin D deficiency History of kidney stones Irritable bowel syndrome Shortness of breath Multiple pigmented nevi Lateral meniscal tear Bile salt-induced diarrhea Impaired glucose tolerance 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[place] Sexual orientation: Straight/Heterosexual Gender identity: Female Cognitive needs: No Hearing needs: No Vision needs: No Female Reproductive History Menstrual Age of Menarche: 13 Questionnaire Thrive Questionnaire Date Thrive assessed: 02/15/24 I am a: Patient What is your living situation today?: I have a steady place to live Within the past 12 months, did the food you bought not last and you didn't have the money to get more?: Never true Within the past 12 months, did you worry whether your food would run out before you got money to buy more?: Never true Do you have trouble paying for medicines?: No Do you have trouble getting transportation to medical appointments?: No Do you have trouble paying your heating and electricity bill?: No Do you have trouble taking care of your child, family member or friend?: No Do you have trouble with day-to-day activities such as bathing, preparing meals, shopping, managing finances, etc.?: No Are you currently unemployed and looking for a job?: No Are you interested in more education?: No THRIVE Score: 0 AUDIT C Alcohol Use Questionnaire (AUDIT-C) 1. How often do you have a drink containing alcohol?: Monthly or less 2. How many drinks containing alcohol do you have on a typical day when you are drinking?: 1 or 2 3. How often do you have six or more drinks on one occasion?: Never Total Score: 1 FLAVIA-7 AMB Questionnaire FLAVIA-7 Date FLAVIA - 7 assessed: 02/15/24 Source: Developed by Drs. Rome Fay, Bridgette Winston, Elliott Cerda and colleagues, with an educational price from [employer]. Physical exam (Primary Care) Vital Signs: Last Vital Signs Pulse 89 09/15/24 09:48 BP 106/54 L 09/15/24 09:48 Pulse Ox 99 09/15/24 09:48 Oxygen Delivery Method Room Air 09/15/24 09:48 BMI result Body Mass Index 24.5 Tobacco/Smoking Status: Tobacco use Status Tobacco use date assessed 02/15/24 09/15/24 09:49 Patient Tobacco Use Status Never used Tobacco 09/15/24 09:49 Tobacco use type Cigarette 09/15/24 09:57 e-Cigarette/Vaping Use Never Used 09/15/24 09:49 Thrive Assessment: Date of Thrive Assessment Date Thrive assessed 02/15/24 09/15/24 09:49 Const General: alert; No acute distress Eyes Conjunctivae: conjunctivae normal Resp Auscultation: clear to auscultation bilaterally Cardio Rate: regular rate Rhythm: regular rhythm GI Inspection: Yes normal to inspection Extrem General: Yes normal to inspection and No edema Coding Level of Care Code Est Pt Level 4 (32002) Diagnoses Iron deficiency anemia secondary to inadequate dietary iron intake D50.8 Iron deficiency anemia type: inadequate dietary iron intake Hx of gastric bypass Z98.84 Dysuria R30.0 Seasonal allergic rhinitis, unspecified trigger J30.2 Allergic rhinitis trigger: unspecified Allergic rhinitis seasonality: seasonal Assessment & Plan Assessment & Plan (1) Iron deficiency anemia: Code(s): D50.9 - Iron deficiency anemia, unspecified Category: Medical Qualifiers: Iron deficiency anemia type: inadequate dietary iron intake Qualified Code(s): D50.8 - Other iron deficiency anemias Plan: Continue to follow-up with Hematology-Oncology and on iron infusion as needed (2) Hx of gastric bypass: Comment: Laparoscopic Deisi en Y gastric bypass with hiatal hernia repair 04/2021 Dr. Metzger Code(s): Z98.84 - Bariatric surgery status Category: Surgical Plan: Continue with eating healthy and keeping active. (3) Dysuria: Code(s): R30.0 - Dysuria Category: Medical Plan: Urinalysis requested (4) Allergic rhinitis: Code(s): J30.9 - Allergic rhinitis, unspecified Category: Medical Qualifiers: Allergic rhinitis trigger: unspecified Allergic rhinitis seasonality: seasonal Qualified Code(s): J30.2 - Other seasonal allergic rhinitis Plan: Flonase prescription sent in. Plan Discussed that if the congestion does not getting better the antibiotic prescription is there. Orders: Orders UA CC w/rflx Micro + Cult Today R30.0 - Dysuria Medications: New cephalexin 500 mg PO BID 7 days 14 caps 0RF R30.0 - Dysuria Changed From fluticasone propionate 50 mcg/actuation 1 spray intranasal DAILY PRN Allergy Symptoms J30.9 - Allergic rhinitis, unspecified To fluticasone propionate 50 mcg/actuation 2 sprays intranasal DAILY PRN 16 grams 5RF Allergy Symptoms J30.9 - Allergic rhinitis, unspecified
== END 2024-09-15 10:10 | disposition home or self-care (01) ==
PROVIDERS: PCP Internal Medicine; Visit Provider Internal Medicine
DX: D50.8 Other iron deficiency anemias (principal); Z98.84 Bariatric surgery status; R30.0 Dysuria; J30.2 Other seasonal allergic rhinitis

== ENCOUNTER 2024-09-20 07:18 | Outpatient (AMB) | payer OTHER, SELFPAY ==
--- NOTE | 2024-09-20 07:26 | A.OFFVIS_ITS ---
Vital Signs 09/20/24 07:27 Height 5 ft 2 in Weight 132 lb 4.438 oz BMI 24.2 BP 98/62 Intake Visit Reasons: EMB/co testing/U/S follow up Relations Liaison Required: No Information Interpreted: non-clinical & clinical Clinical Cytogenetics Director: Clinical Cytogenetics Director Present Allergies Penicillins Allergy (Mild, Verified 09/20/24 07:36) RASH HPI Comments Details: Presenting for physical exam, cultures co testing and EMB. [facility] Medical History (Updated 09/20/24 @ 07:44 by Drake Munoz MD) Abnormal uterine bleeding (AUB) Intestinal malabsorption following gastrectomy Measles, mumps, rubella (MMR) vaccination status unknown Bacterial vaginosis Overweight (BMI 25.0-29.9) Tinea pedis Mass in neck Dysplasia of cervix, low grade (AMRITA 1) COVID-19 virus infection Nexplanon removal Bacterial vaginosis Menometrorrhagia COVID-19 vaccine series started History of pneumonia Adjustment disorder, unspecified Vitamin A deficiency Vitamin D deficiency History of kidney stones Irritable bowel syndrome Shortness of breath Multiple pigmented nevi Lateral meniscal tear Bile salt-induced diarrhea Impaired glucose tolerance 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[place] Sexual orientation: Straight/Heterosexual Gender identity: Female Cognitive needs: No Hearing needs: No Vision needs: No Female Reproductive History Menstrual Age of Menarche: 13 Review of Systems Const All systems reviewed & are unremarkable except as noted in HPI and below Card Reports as per HPI Resp Reports as per HPI GI Reports as per HPI and Reports no additional complaints Reports as per HPI Physical Exam Vital Signs: Last Vital Signs BP 98/62 09/20/24 07:27 BMI result Body Mass Index 24.2 Const General: cooperative, healthy appearing and comfortable Chest Chest palpation & inspection: normal inspection of the chest and normal palpation of entire chest wall Breast/axilla inspection: normal inspection of the breasts and normal inspection of the axillae Breast/axilla palpation: normal palpation of the breasts, normal palpation of the axillae and no axillary lymphadenopathy Resp Effort & Inspection: normal respiratory effort Auscultation: clear to auscultation bilaterally Percussion: percussion normal Cardio Palpation: normal PMI Rate: regular rate Rhythm: regular rhythm Heart sounds: no murmurs and no rubs Peripheral pulses: Peripheral pulses 2+ throughout GI Inspection: Yes normal to inspection Palpation (GI): Soft to palpation, nontender, no guarding, not rigid and No hepatosplenomegaly present Percussion: Yes normal to percussion Auscultation: normal bowel sounds Rectal Exam - Female: deferred General: Yes bladder normal to palpation External Female Exam: No lesion Speculum Exam - Vagina: normal appearance of the vagina, normal palpation, normal vaginal discharge and not erythematous Speculum Exam - Cervix: normal appearance of the cervix and normal palpation Bimanual exam- vagina & uterus: normal bimanual exam, normal palpation, uterine size normal, bladder normal to palpation, consistency normal and normal palpation Bimanual Exam- Adnexa, other: normal adnexae, no masses and no tenderness Office Procedures Endometrial Biopsy Details: The patient was counseled regarding the indication and benefits of endometrial sampling to rule out endometrial pathology including not limited to endometrial hyperplasia or endometrial cancer and others; The alternatives (Either do nothing vs. hysteroscopy D&C) & the risks were discussed with the patient including but not limited: pain, uterine perforation, bleeding, infection, possible injury to bladder, bowel, ureter, possible need for blood transfusion with all its possible risks. The patient verbalized understanding all questions answered and signed consent. Urine test done in the office was negative The patient was placed into the dorsal lithotomy position; a speculum was inserted in the vagina. Using aseptic technique for the procedure, the cervix was cleansed with Betadine. The anterior lip of the cervix was grasped with a single tooth tenaculum. The uterus was sounded to 7 cm with a 4 mm Pipelle was used. Tissues samples were obtained and placed in formalin, in a patient labeled container and sent to the pathology department. At the end of the procedure, there was minimal bleeding noted The patient tolerated the procedure well and was discharged in good condition with the following instructions: Nothing in the vagina until the bleeding stops. No sex until the bleeding stops, to call if any of the following occurs: fever (>100.4), flu-like symptoms, abdominal pain, heavy bleeding, four smelling vaginal discharge. The patient was instructed to schedule a Follow up appointment in 2 weeks to discuss pathology results of the biopsy and treatment options. This note was generated with a voice recognition program. Some errors may have been overlooked during the review of this note. Sometimes these errors may affect the content or meaning of a given sentence. [id number] Biopsy Assessment & Plan Assessment & Plan (1) Abnormal uterine bleeding (AUB): Code(s): N93.9 - Abnormal uterine and vaginal bleeding, unspecified Category: Medical Plan: GC/CT taken, co testing done. EMB done, see procedure note Orders: Orders AMB Endometrial Biopsy Today N93.9 - Abnormal uterine and vaginal bleeding, unspecified Coding Level of Care Code Est Pt Level 3 (94153) Procedure Only Diagnoses Abnormal uterine bleeding (AUB) N93.9 CPT Codes Endometrial Biopsy - CPT: 35015-Uuqskrarcdg Biopsy ([id number])
[2024-09-20 07:27] VITALS: BP 98/62; BMI 24.2
== END 2024-09-20 08:05 | disposition home or self-care (01) ==
LOC: HO.HWS 07:18
PROVIDERS: PCP Internal Medicine; Visit Provider Obstetrics & Gynecology
DX: N93.9 Abnormal uterine and vaginal bleeding, unspecified (principal); Z32.02 Encounter for pregnancy test, result negative
CPT/HCPCS: 58100; 99213

== ENCOUNTER 2024-09-20 07:18 | Outpatient (REF) | payer OTHER, SELFPAY ==
[2024-09-20 16:24] LABS: CT PCR NOT DETECTED (Not Detect.); NG PCR NOT DETECTED (Not Detect.)
[2024-10-06 13:39] LABS: HPV 16,18/45 See PAP report
== END 2024-09-20 07:19 | disposition home or self-care (01) ==
LOC: HO.LNP 07:18
PROVIDERS: PCP Internal Medicine; Visit Provider Obstetrics & Gynecology
DX: N93.9 Abnormal uterine and vaginal bleeding, unspecified (principal); Z12.4 Encounter for screening for malignant neoplasm of cervix; Z87.42 Personal history of other diseases of the female genital tract; Z86.19 Personal history of other infectious and parasitic diseases
CPT/HCPCS: 58100; 81025; 87491; 87591; 87624; 88175; 88305

== ENCOUNTER 2024-10-03 07:55 | Outpatient (REF) | payer OTHER, SELFPAY ==
[2024-10-04 11:37] LABS: Bacterial Vaginosis PCR NEGATIVE (Negative); Candida Group PCR NOT DETECTED (Not Detect); Candida glab krusei PCR NOT DETECTED (Not Detect); Trichomonas vaginalis PCR NOT DETECTED (Not Detect)
== END 2024-10-03 07:56 | disposition home or self-care (01) ==
LOC: HO.LNP 07:55
PROVIDERS: PCP Internal Medicine; Visit Provider Obstetrics & Gynecology
DX: A59.01 Trichomonal vulvovaginitis (principal)
CPT/HCPCS: 0352U

== ENCOUNTER 2024-10-03 07:55 | Outpatient (AMB) | payer OTHER, SELFPAY ==
[2024-10-03 07:59] VITALS: BMI 24.2
--- NOTE | 2024-10-03 07:59 | A.OFFVIS_ITS ---
Vital Signs 10/03/24 07:59 Height 5 ft 2 in Weight 132 lb 4.438 oz BMI 24.2 Intake Visit Reasons: ERICKA Boat Ride Operator Required: No Information Interpreted: non-clinical & clinical Paper Cone Grader: Paper Cone Grader Present (Samara SIMMONS) Accompanied by: Self / Same As Patient Allergies Penicillins Allergy (Mild, Verified 10/03/24 08:07) RASH HPI Comments Details: The patient is presenting for a test of cure. The patient took the antibiotics course; she informed her partner who was treated too. The patient reports no intercourse since then. REPLACED BY [facility] Medical History Abnormal uterine bleeding (AUB) Intestinal malabsorption following gastrectomy Measles, mumps, rubella (MMR) vaccination status unknown Bacterial vaginosis Overweight (BMI 25.0-29.9) Tinea pedis Mass in neck Dysplasia of cervix, low grade (AMRITA 1) COVID-19 virus infection Nexplanon removal Bacterial vaginosis Menometrorrhagia COVID-19 vaccine series started History of pneumonia Adjustment disorder, unspecified Vitamin A deficiency Vitamin D deficiency History of kidney stones Irritable bowel syndrome Shortness of breath Multiple pigmented nevi Lateral meniscal tear Bile salt-induced diarrhea Impaired glucose tolerance 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[place] Sexual orientation: Straight/Heterosexual Gender identity: Female Cognitive needs: No Hearing needs: No Vision needs: No Female Reproductive History Menstrual Age of Menarche: 13 Review of Systems Const All systems reviewed & are unremarkable except as noted in HPI and below Physical Exam Vital Signs: BMI result Body Mass Index 24.2 General: Yes no CVA tenderness External Female Exam: normal external appearance and normal appearance of the urethra Speculum Exam - Vagina: normal appearance of the vagina, normal palpation, no lesions and no masses Speculum Exam - Cervix: normal appearance of the cervix, normal palpation, no lesions, no masses and nontender Bimanual exam- vagina & uterus: normal bimanual exam, normal palpation, uterine size normal, normal palpation, uterine shape normal, No Cervical tenderness present and non-tender Bimanual Exam- Adnexa, other: normal adnexae Back/Spine/Pelvis Back: no CVA tenderness Assessment & Plan Assessment & Plan (1) Trichomonas vaginalis (TV) infection: Comment: Treated for ERICKA Code(s): A59.01 - Trichomonal vulvovaginitis Category: Medical Plan: BV panel taken, GC/CT were negative on 09/20/2024, will repeat STD screen , ordered, although recent STD screen in 08/03/2024 were negative but since this is new contact recommended repeat STD screening in six-month for possibility of false negative. All questions answered, the patient verbalized understanding Orders: Orders Hepatitis B Surface Antigen Today Z20.2 - Contact with and (suspected) exposure to infections with a predominantly sexual mode of transmission Hepatitis C Antibody Today Z20.2 - Contact with and (suspected) exposure to infections with a predominantly sexual mode of transmission HIV Ab/Ag Today Z20.2 - Contact with and (suspected) exposure to infections with a predominantly sexual mode of transmission Syphilis Screen Today Z20.2 - Contact with and (suspected) exposure to infections with a predominantly sexual mode of transmission Coding Level of Care Code Est Pt Level 3 (37337) Diagnoses Trichomonas vaginalis (TV) infection A59.01
== END 2024-10-03 08:21 | disposition home or self-care (01) ==
LOC: HO.HWS 07:55
PROVIDERS: PCP Internal Medicine; Visit Provider Obstetrics & Gynecology
DX: A59.01 Trichomonal vulvovaginitis (principal)
CPT/HCPCS: 99213

== ENCOUNTER 2024-10-19 07:29 | Outpatient (AMB) | payer OTHER, SELFPAY ==
--- NOTE | 2024-10-19 07:30 | A.OFFVIS_ITS ---
Vital Signs 10/19/24 07:31 Height 5 ft 2 in Weight 132 lb BMI 24.1 Intake Visit Reasons: 3 weeks EMB results per suzanne Medical/Surgery Registered Nurse Required: No Information Interpreted: non-clinical & clinical Accompanied by: Self / Same As Patient Allergies Penicillins Allergy (Mild, Verified 10/19/24 07:31) RASH HPI Comments Details: The patient is presenting for follow-up to discuss the results of her abnormal uterine bleeding workup and options of treatment. The following workup was done.: H&H= 11.5/37 the TSH, prolactin, hCG, GC and chlamydia were negative. Endometrial biopsy pathology showed the following: Endometrium, biopsy: - Early secretory endometrium. - Few strips of endocervical epithelium within normal limits. - No atypia or hyperplasia identified Co testing was done was negative/Trichomonas positive, the patient was treated and ERICKA done afterwards was negative. Pelvic ultrasound done on 09/07/2024 no report available yet [facility] Medical History Abnormal uterine bleeding (AUB) Intestinal malabsorption following gastrectomy Measles, mumps, rubella (MMR) vaccination status unknown Bacterial vaginosis Overweight (BMI 25.0-29.9) Tinea pedis Mass in neck Dysplasia of cervix, low grade (AMRITA 1) COVID-19 virus infection Nexplanon removal Bacterial vaginosis Menometrorrhagia COVID-19 vaccine series started History of pneumonia Adjustment disorder, unspecified Vitamin A deficiency Vitamin D deficiency History of kidney stones Irritable bowel syndrome Shortness of breath Multiple pigmented nevi Lateral meniscal tear Bile salt-induced diarrhea Impaired glucose tolerance 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[place] Sexual orientation: Straight/Heterosexual Gender identity: Female Cognitive needs: No Hearing needs: No Vision needs: No Female Reproductive History Menstrual Age of Menarche: 13 Review of Systems Const All systems reviewed & are unremarkable except as noted in HPI and below Reports as per HPI and Reports no additional complaints GI Reports no additional complaints Reports no additional complaints Physical Exam Vital Signs: BMI result Body Mass Index 24.1 Assessment & Plan Assessment & Plan (1) Abnormal uterine bleeding (AUB): Code(s): N93.9 - Abnormal uterine and vaginal bleeding, unspecified Category: Medical Plan: Message to the radiology department was sent to expedite the reading of the pelvic ultrasound that was done on 09/07/2024, and the report is still pending. Discussed with the patient the results of the work up done and options of treatment including control pills , Mirena IUD, cyclic Provera. All pros, cons, risks and benefits if each option was discussed with the patient and the patient decided to go ahead with [facility] so a more detailed discussion re: control pills including mechanism of action, benefits (regular menses, less dysmenorrhea, less risk of ovarian cancer, ...), risks ( DVT, PE, Strokes, VA, ? increased breast ca, others). Instructions were given to use a back- up method for contraception x 1st 2 weeks, and to schedule a 3 months appointment for blood pressure check/ultrasound follow-up Medications: New desogestrel-ethinyl estradiol 0.15-0.03 mg (Apri) 1 tab PO DAILY 28 days 28 tabs 2RF Coding Level of Care Code Est Pt Level 3 (17397) Diagnoses Abnormal uterine bleeding (AUB) N93.9
[2024-10-19 07:31] VITALS: BMI 24.1
--- OUTSIDE RECORDS SUMMARY | 2024-10-19 07:31 | XMS_ITS | Patient Health Record ---
Author Organization [facility] Address [address] [place] [address] Care Team Providers Care Property Analyst Name Role Phone Po Samuel STEPHENSON Primary Care Provider Rome Mcdaniel Unavailable [phone] ALLERGIES Allergen (clinical drug ingredient) Drug/Non Drug Allergy documented on EMR Reaction Allergy Type Onset Date Status Penicillin Unknown Drug Allergy Active Seasonal (uncoded) Unknown Allergy A ctive REASON FOR REFERRAL No Information MEDICATIONS Medication SIG (Take, Route, Frequency, Duration) Notes Start Date End Date Status Pepcid Active Omeprazole 20 MG 1 tablet Orally twic e a day 01/28/2012 Not-Taking Celebrate Multi-Complete 18 - as directed Orally 04/17/2021 Active Vitamin D3 1.25 MG (68345 UT) TAKE 1 CAPSULE BY MOUTH EVERY WEEK Oral for 84 Active Vitamin A 3 MG (49760 UT) TAKE 2 CAPSULE S BY MOUTH EVERY DAY Oral for 29 Active Fluticasone Propionate Active IMMUNIZATIONS Vaccine Route Administration Date Status Comme nts Influenza Unknown 08/10/2019 Administered Influenza Unknown 08/23/2020 Administered SOCIAL HISTORY Sex Assigned At : Social History Observation Description Sex Assigned At Unknown PROBLEMS Problem Type ICD Code Onset Dates Problem Status W/U Status Risk SNOMED Code Notes Problem Irritable bowel syndrome with diarrhea (K58.0) Active confirmed 448789120 Problem Gastroesophageal reflux disease without esophagitis (K21.9) Active confirmed 205255010 Problem Hiatal hernia (K44.9) Active confirmed Hiatal hernia (12424392) Problem Rectal bleed (K62.5) Active confirmed 60890622 Problem GERD (gastroesophageal reflux disease) (K21.9) Active confirmed Gastroesophagea l reflux disease (619311831) Problem Diarrhea, unspecified type (R19.7) Active confirmed 56659157 PLAN OF TREATMENT Pending Test Test Name Order Date Esophageal Motility study 04/19/2020 24 HR pH PROBE 04/19/2020 Future Test Test Name Order Date UPPER GI ENDOSCOPY 04/14/2012 UPPER GI ENDOSCOPY 11/03/2019 COLONOSCOPY 11/03/2019 Insurance Providers Payer Name Payer Address Payer Phone Subscriber Number Group Number Insured Name Patient Relationship to Insured Coverage Start Date Coverage End Date [employer] [place] [address] [address] [place] [address] [id number] GER DOMINIQUE Self - patient is the insured MEDICAL (GENERAL) HISTORY Medical History History ICD Code GERD-EGD 2011--Small HH--bx neg for celiac disease, no Sands's nor significant esophagitis; upper endoscopy in January of 2020 revealed a moderate sized hiatal hernia, but no evidence of any significant esophagitis nor Sands's esophagus. She had an esophageal motility study and pH study. She had surgery as below. Denies [place],DM,CVA,Lung disease,renal dise ase Diarhea/IBS-normal duodenal biopsies in 2011 and in 2019 Colonoscopy in January of 2020 revealed no evidence of inflammatory bowel disease and biopsies were negative for microscopic colitis Surgical History Surgery Date(Month/Year) Cholecystectomy 2010 Tonsillectomy Adenoidectomy LEEP surgery Deisi-en-Y Gastric bypass wit h a 150cm Deisi limb and a [place] [facility] [place]
== END 2024-10-19 08:18 | disposition home or self-care (01) ==
LOC: HO.HWS 07:29
PROVIDERS: PCP Internal Medicine; Visit Provider Obstetrics & Gynecology
DX: N93.9 Abnormal uterine and vaginal bleeding, unspecified (principal)
CPT/HCPCS: 99213

== ENCOUNTER 2024-11-29 07:44 | Outpatient (REF) | payer MEDICAID, SELFPAY | END 2024-11-29 07:45 | disposition home or self-care (01) | LOC: HO.LNP 07:44 | PROVIDERS: PCP Internal Medicine; Visit Provider Obstetrics & Gynecology | DX: Z11.3 Encounter for screening for infections with a predominantly sexual mode of transmission (principal); N89.8 Other specified noninflammatory disorders of vagina | CPT/HCPCS: 81025; 99212 ==

== ENCOUNTER 2024-11-29 07:44 | Outpatient (AMB) | payer MEDICAID, SELFPAY ==
--- NOTE | 2024-11-29 07:45 | MHC.OFFVIS ---
Intake Visit Reasons: vag inf Lathe Machine Operator: Lathe Machine Operator Present (Briana) Allergies Penicillins Allergy (Mild, Verified 11/29/24 07:45) RASH HPI Comments Details: Presenting complaining of exposure to Trichomonas from her partner. The patient had positive Trichomonas in 09/25 with a negative test of cure after treatment, but her partner recently mentioned to her that he did not finish the previously prescribed treatment for Trichomonas few weeks ago and since then they had unprotected intercourse. The patient is complaining of malodorous urine no vaginal discharge or itching or any other concerns. [facility] Medical History Abnormal uterine bleeding (AUB) Intestinal malabsorption following gastrectomy Measles, mumps, rubella (MMR) vaccination status unknown Bacterial vaginosis Overweight (BMI 25.0-29.9) Tinea pedis Mass in neck Dysplasia of cervix, low grade (AMRITA 1) COVID-19 virus infection Nexplanon removal Bacterial vaginosis Menometrorrhagia COVID-19 vaccine series started History of pneumonia Adjustment disorder, unspecified Vitamin A deficiency Vitamin D deficiency History of kidney stones Irritable bowel syndrome Shortness of breath Multiple pigmented nevi Lateral meniscal tear Bile salt-induced diarrhea Impaired glucose tolerance 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 Sexual orientation: Straight/Heterosexual Gender identity: Female Cognitive needs: No Hearing needs: No Vision needs: No Female Reproductive History Menstrual Age of Menarche: 13 Review of Systems Const All systems reviewed & are unremarkable except as noted in HPI and below Physical Exam General: Yes no CVA tenderness External Female Exam: normal external appearance and normal appearance of the urethra Speculum Exam - Vagina: normal appearance of the vagina, normal palpation, no lesions and no masses Speculum Exam - Cervix: normal appearance of the cervix, normal palpation, no lesions, no masses and nontender Bimanual exam- vagina & uterus: normal bimanual exam, normal palpation, uterine size normal, normal palpation, uterine shape normal, No Cervical tenderness present and non-tender Bimanual Exam- Adnexa, other: normal adnexae Back/Spine/Pelvis Back: no CVA tenderness Results AMB Test Urine AMB Test Urine Negative Last Edit by IRIS Shankar on 11/29/24 08:02 Results Reviewed Results Reviewed: Laboratory Last Values [facility] Negative 11/29/24 07:59 Assessment & Plan Assessment & Plan (1) Screening for STD (sexually transmitted disease): Code(s): Z11.3 - Encounter for screening for infections with a predominantly sexual mode of transmission Category: Medical Plan: UPT done in the office was negative. Urine culture sent. STD screening tests done includes: BV panel for trichomonas, GC/CT will send patient for serology std screening for HIV, RPR, Hep b s Ag, HepC Ab. Instructions given the patient to schedule a follow-up appointment for repeat serology screen in 6 months for possible false negatives. Orders: Orders CT NG by PCR Today N89.8 - Other specified noninflammatory disorders of vagina, Z11.3 - Encounter for screening for infections with a predominantly sexual mode of transmission AMB HCG Urine Test Today N93.9 - Abnormal uterine and vaginal bleeding, unspecified Bacterial Vaginosis Panel Today N89.8 - Other specified noninflammatory disorders of vagina, Z11.3 - Encounter for screening for infections with a predominantly sexual mode of transmission Urine Culture Today R30.0 - Dysuria Coding Level of Care Code Est Pt Level 3 (40441) Diagnoses Screening for STD (sexually transmitted disease) Z11.3
--- OUTSIDE RECORDS SUMMARY | 2024-11-29 07:47 | XMS_ITS | Patient Health Record ---
Author Organization [facility] Address [address] [place] [address] Care Team Providers Care Fur Trimmer Name Role Phone Po Samuel STEPHENSON Primary Care Provider Rome Mcdaniel Unavailable [phone] ALLERGIES Allergen (clinical drug ingredient) Drug/Non Drug [...] Orally 04/17/2021 Active Vitamin D3 1.25 MG (02834 UT) TAKE 1 CAPSULE BY MOUTH EVERY WEEK Oral for 84 Active Vitamin A 3 MG (44605 UT) TAKE 2 CAPSULE S BY MOUTH [...] bowel syndrome with diarrhea (K58.0) Active confirmed 101597529 Problem Gastroesophageal reflux disease without esophagitis (K21.9) Active confirmed 530836420 Problem Hiatal hernia (K44.9) Active confirmed Hiatal hernia (78236262) Problem Rectal bleed (K62.5) Active confirmed 21088107 Problem GERD (gastroesophageal reflux disease) (K21.9) Active confirmed Gastroesophagea l reflux disease (596174710) Problem Diarrhea, unspecified type (R19.7) Active confirmed 93939247 PLAN OF TREATMENT Pending Test Test Name Order Date Esophageal Motility study 04/19/2020 24 HR pH PROBE 04/19/2020 Future Test Test Name Order Date UPPER GI ENDOSCOPY 04/14/2012 UPPER GI ENDOSCOPY 11/03/2019 COLONOSCOPY 11/03/2019 Insurance Providers Payer Name Payer Address Payer Phone Subscriber Number Group Number Insured Name Patient Relationship to Insured Coverage Start Date Coverage End Date [employer] [place] [address] [address] [place] [address] [id number] GER DOMINIQUE Self - patient is [...] study. She had surgery as below. Denies [place],DM,CVA,Lung disease,renal dise ase Diarhea/IBS-normal duodenal biopsies in 2011 and in 2019 Colonoscopy in January of 2020 revealed no evidence of inflammatory bowel disease and biopsies were negative for microscopic colitis Surgical History Surgery Date(Month/Year) Cholecystectomy 2010 Tonsillectomy Adenoidectomy LEEP surgery Deisi-en-Y Gastric bypass wit h a 150cm [place]isi limb and [place] [facility] [place]
== END 2024-11-29 07:56 | disposition home or self-care (01) ==
LOC: HO.HWS 07:44
PROVIDERS: PCP Internal Medicine; Visit Provider Obstetrics & Gynecology
DX: Z11.3 Encounter for screening for infections with a predominantly sexual mode of transmission (principal); N93.9 Abnormal uterine and vaginal bleeding, unspecified
CPT/HCPCS: 99213

== ENCOUNTER 2024-11-29 07:59 | Outpatient (REF) | payer MEDICAID, SELFPAY ==
[2024-11-29 16:53] LABS: Bacterial Vaginosis PCR NEGATIVE (Negative); Candida Group PCR NOT DETECTED (Not Detect); Candida glab krusei PCR NOT DETECTED (Not Detect); Trichomonas vaginalis PCR NOT DETECTED (Not Detect)
[2024-11-29 17:24] LABS: CT PCR NOT DETECTED (Not Detect.); NG PCR NOT DETECTED (Not Detect.)
== END 2024-11-29 08:00 | disposition home or self-care (01) ==
LOC: HO.LAB 07:59
PROVIDERS: Visit Provider Obstetrics & Gynecology
DX: Z20.2 Contact with and (suspected) exposure to infections with a predominantly sexual mode of transmission (principal); N89.8 Other specified noninflammatory disorders of vagina; Z11.3 Encounter for screening for infections with a predominantly sexual mode of transmission; R30.0 Dysuria
CPT/HCPCS: 81515; 87086; 87088; 87186; 87491; 87591

== ENCOUNTER 2024-11-29 08:55 | Outpatient (REF) | payer MEDICAID, SELFPAY ==
[2024-11-29 10:22] LABS: Syphilis Screen Nonreactive (Nonreactive)
[2024-11-29 10:41] LABS: HBsAGNum1 0.35 S/CO (0.00-0.99); HIV AB/AG Nonreactive (Nonreactive); HIV Num 1 0.04 S/CO (0.00-0.99); Hepatitis B Surface Antigen Negative (Negative); ~HepC Num1 0.12 S/CO (0.00-0.79); ~Hepatitis C Antibody Nonreactive (Nonreactive)
== END 2024-11-29 08:56 | disposition home or self-care (01) ==
LOC: HO.LAB 08:55
PROVIDERS: PCP Internal Medicine; Visit Provider Obstetrics & Gynecology
DX: N93.9 Abnormal uterine and vaginal bleeding, unspecified (principal); Z20.2 Contact with and (suspected) exposure to infections with a predominantly sexual mode of transmission
CPT/HCPCS: 36415; 86780; 86803; 87340; 87389

== ENCOUNTER 2025-01-10 07:54 | Outpatient (AMB) | payer OTHER, SELFPAY ==
--- OUTSIDE RECORDS SUMMARY | 2025-01-10 07:58 | XMS_ITS | Patient Health Record ---
Author Organization [facility] Address [address] [place] [address] Care Team Providers Care Diesel Electrician Name Role Phone Po Samuel STEPHENSON Primary Care Provider Rome Mcdaniel Unavailable [phone] Allergies Allergen (clinical drug ingredient) Drug/Non Drug Allergy documented on EMR Reaction Allergy Type Onset Date Status Penicillin Unknown Drug Allergy Active Seasonal (uncoded) Unknown Allergy A ctive Reason For Referral No Information Medications Medication SIG (Take, Route, Frequency, Duration) Notes Start Date End Date Status Pepcid Active Omeprazole 20 MG 1 tablet Orally twic e a day 01/28/2012 Not-Taking Celebrate Multi-Complete 18 - as directed Orally 04/17/2021 Active Vitamin D3 1.25 MG (59062 UT) TAKE 1 CAPSULE BY MOUTH EVERY WEEK Oral for 84 Active Vitamin A 3 MG (32361 UT) TAKE 2 CAPSULE S BY MOUTH EVERY DAY Oral for 29 Active Fluticasone Propionate Active Immunizations Vaccine Route Administration Date Status Comme nts Influenza Unknown 08/10/2019 Administered Influenza Unknown 08/23/2020 Administered Problems Problem Type SNOMED Code ICD Code Onset Dates Problem Status W/U Status Risk Notes Problem 838593831 Irritable bowel syndrome with diarrhea (K58.0) Active confirmed Problem 430401241 Gastroesophageal reflux disease without esophagitis (K21.9) Active confirmed Problem Hiatal hernia (80429125) Hiatal hernia (K44.9) Active confirmed Problem 78714107 Rectal bleed (K62.5) Active confirmed Problem Gastroesophageal reflux disease (941643051) GERD (gastroesophageal reflux disease) (K21.9) Active confirmed Problem 36530335 Diarrhea, unspecified type (R19.7) Active confirmed Plan Of Treatment Pending Test Test Name Order Date Esophageal Motility study 04/19/2020 24 HR pH PROBE 04/19/2020 Future Test Test Name Order Date UPPER GI ENDOSCOPY 04/14/2012 UPPER GI ENDOSCOPY 11/03/2019 COLONOSCOPY 11/03/2019 Insurance Providers Payer Name Payer Address Payer Phone Subscriber Number Group Number Insured Name Patient Relationship to Insured Coverage Start Date Coverage End Date [employer] [place] [address] [address] [place] [address] [id number] GER DOMINIQUE Self - patient is the insured Medical (General) History Medical History History ICD Code GERD-EGD 2011--Small HH--bx neg for celiac disease, no Sands's nor significant esophagitis; upper endoscopy in January of 2020 revealed a moderate sized hiatal hernia, but no evidence of any significant esophagitis nor Sands's esophagus. She had an esophageal motility study and pH study. She had surgery as below. Denies [place],DM,CVA,Lung disease,renal dise ase Diarhea/IBS-normal duodenal biopsies in 2011 and in 2019 Colonoscopy in January of 2020 revealed no evidence of inflammatory bowel disease and biopsies were negative for microscopic colitis Surgical History Surgery Date(Month/Year) Cholecystectomy 2010 Tonsillectomy Adenoidectomy LEEP surgery Deisi-en-Y Gastric bypass wit h a 150cm Deisi limb and a Hiatal Hernia repair with Dr. Shipman at [facility] [place] 04/[place]21
--- NOTE | 2025-01-10 08:12 | MHC.OFFVISWM ---
VS Expanded 01/10/25 08:17 BP 106/57 L Blood Pressure Location Rt brachial Blood Pressure Position Sitting Pulse 59 Pulse Source Pulse Oximeter Temp 98.9 F Temperature Source Temporal Artery Scan Pulse Oximetry 98 Oxygen Delivery Method Room Air Height 5 ft 2 in Weight 132 lb BMI 24.1 Body Fat % 22.1 Body Fat Mass 29.2 Fat Free Mass 102.8 Visceral Fat Rating 3.0 Body Water % 55.7 Body Water Mass 73.4 Muscle Mass/Score 97.4 Basal Metabolic Rate/Score 1,372 Intake Visit Reasons: (OV) PO GBP 04/03/21 Vehicle Service Agent Required: No Allergies Penicillins Allergy (Mild, Verified 11/29/24 07:45) RASH Medication List - Last Reconciled 01/10/25 by TONE Louise ascorbate calcium (vitamin C) 500 mg PO BID blood sugar diagnostic (FreeStyle Lite Strips) As directed check the BS QD blood-glucose meter (FreeStyle Lite Meter kit) As directed calcium citrate 1,000 mg PO DAILY cholecalciferol (vitamin D3) 125 mcg PO DAILY desogestrel-ethinyl estradiol 0.15-0.03 mg (Apri) 1 tab PO DAILY 28 days ferrous sulfate (FeroSul) 325 mg PO BID fluticasone propionate 50 mcg/actuation 2 sprays intranasal DAILY PRN lancets (FreeStyle Lancets) As directed check BS QD [id number]-[id number]-FA-vit K 45 mg iron- 800 mcg-120 mcg (Bariatric Multivitamins) 1 cap PO DAILY omeprazole 20 mg PO DAILY vitamin A palmitate 10,000 units PO DAILY HPI Comments Details: This?is a?39?yo female who is s/p RYGB with HHR 04/03/[address] Metzger. Presents for 3 year 9 month month post op visit. Weight at last visit on 02/03/24 was 138.8 pounds with a BMI of 25.4, weight today is 132 pounds with a BMI today of 24.1.? No complaints of nausea, emesis, abdominal pain or reflux, or constipation. Pt reports she has undergone iron infusions back in the early part of the year. She feels significantly better overall and much healthier. 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 Wants to do one shake in the morning Present meal plan includes: 8am premier protein RTD shake, half the shake with an additional 4 oz unsweetened almond milk 1130 or 12 meal salad/veggies w cottage cheese or HB egg 3-4pm another shake 6pm half cup fresh fruit. drinking 96 oz water daily Exercise routine includes: treadmill 45 min 4 x per week. 300-325 calories (speed 6-7, incline 3) [facility] Medical History Abnormal uterine bleeding (AUB) Intestinal malabsorption following gastrectomy Measles, mumps, rubella (MMR) vaccination status unknown Bacterial vaginosis Overweight (BMI 25.0-29.9) Tinea pedis Mass in neck Dysplasia of cervix, low grade (AMRITA 1) COVID-19 virus infection Nexplanon removal Bacterial vaginosis Menometrorrhagia COVID-19 vaccine series started History of pneumonia Adjustment disorder, unspecified Vitamin A deficiency Vitamin D deficiency History of kidney stones Irritable bowel syndrome Shortness of breath Multiple pigmented nevi Lateral meniscal tear Bile salt-induced diarrhea Impaired glucose tolerance 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[employer] Sexual orientation: Straight/Heterosexual Gender identity: Female Cognitive needs: No Hearing needs: No Vision needs: No Female Reproductive History Menstrual Age of Menarche: 13 Physical Exam Const General: healthy appearing and no acute distress Resp Effort & Inspection: normal respiratory effort Auscultation: clear to auscultation bilaterally Cardio Rate: regular rate Rhythm: regular rhythm GI Auscultation: normal bowel sounds Extrem General: Yes normal to inspection Assessment & Plan Assessment & Plan (1) Hx of gastric bypass: Comment: Laparoscopic Deisi en Y gastric bypass with hiatal hernia repair 04/2021 Dr. Metzger Code(s): Z98.84 - Bariatric surgery status Category: Surgical Plan: Overall doing very well. Maintaining a healthy weight over the last year. She will continue current meal plan with the information for the right BMI bee given to her for variety. We will supplement labs and check vitamin levels. Return to the office in 1 year. Orders: Orders Vitamin D 25-OH Total Today D50.8 - Other iron deficiency anemias, Z00.00 - Encounter for general adult medical examination without abnormal findings, Z98.84 - Bariatric surgery status Vitamin B1 Today D50.8 - Other iron deficiency anemias, Z00.00 - Encounter for general adult medical examination without abnormal findings, Z98.84 - Bariatric surgery status Vitamin A Today D50.8 - Other iron deficiency anemias, Z00.00 - Encounter for general adult medical examination without abnormal findings, Z98.84 - Bariatric surgery status Zinc Today D50.8 - Other iron deficiency anemias, Z00.00 - Encounter for general adult medical examination without abnormal findings, Z98.84 - Bariatric surgery status Ferritin Today D50.8 - Other iron deficiency anemias, Z00.00 - Encounter for general adult medical examination without abnormal findings, Z98.84 - Bariatric surgery status Vitamin B12 and Folate Today D50.8 - Other iron deficiency anemias, Z00.00 - Encounter for general adult medical examination without abnormal findings, Z98.84 - Bariatric surgery status IRON PROFILE Today D50.8 - Other iron deficiency anemias, Z00.00 - Encounter for general adult medical examination without abnormal findings, Z98.84 - Bariatric surgery status
[2025-01-10 08:17] VITALS: BP 106/57; PULSE 59; TEMP 37.2; O2SAT 98; BMI 24.1
== END 2025-01-10 08:29 | disposition home or self-care (01) ==
PROVIDERS: PCP Internal Medicine; Visit Provider Physician Assistant Surgical
DX: Z71.3 Dietary counseling and surveillance (principal); Z98.84 Bariatric surgery status
CPT/HCPCS: 99213

== ENCOUNTER → 2025-01-10 07:54 | Outpatient (BNVA) | payer OTHER, SELFPAY | PROVIDERS: PCP Internal Medicine; Visit Provider Physician Assistant Surgical | DX: K90.49 Malabsorption due to intolerance, not elsewhere classified (principal); Z68.24 Body mass index [BMI] 24.0-24.9, adult; Z98.84 Bariatric surgery status | CPT/HCPCS: 99212 ==

== ENCOUNTER 2025-01-19 07:45 | Outpatient (AMB) | payer OTHER, SELFPAY ==
--- NOTE | 2025-01-19 07:48 | A.OFFVIS_ITS ---
Vital Signs 01/19/25 07:51 Height 5 ft 2 in Weight 132 lb BMI 24.1 BP 110/70 Intake Visit Reasons: Follow up u/s / control follow up Tool Specialist Required: No Information Interpreted: non-clinical & clinical Accompanied by: Self / Same As Patient Allergies Penicillins Allergy (Mild, Verified 01/19/25 07:52) RASH HPI Comments Details: The patient is presenting for follow-up to discuss the results of her abnormal uterine bleeding workup and options of treatment. The following workup was done.: H&H= 11.5/37 the TSH, prolactin, hCG, GC and chlamydia were negative. Endometrial biopsy pathology showed the following: Endometrium, biopsy: - Early secretory endometrium. - Few strips of endocervical epithelium within normal limits. - No atypia or hyperplasia identified Co testing was done was negative Pelvic ultrasound showed the following: Uterus: The uterus is anteverted and measures 8 x 5 x 6 cm. Volume is 224 cc. The double wall endometrial thickness is 4 mm. The uterus is smooth in contour and has normal myometrial echogenicity. No visible fibroid. Adnexa: Both ovaries are visualized. There is normal color flow to the adnexa. There is no ovarian torsion. There is no pelvic ascites or fluid collection. Scattered follicles within both ovaries more conspicuous on the left ovary. Right ovary measures 3 x 3 x 2 cm. Volume is 9 cc. Left ovary measures 3 x 3 x 2 cm. Volume is 12 cc. Trace amount of free fluid in the cul-de-sac. Counseling about different options of treatment were discussed with the patient, control pills were started in October. The patient has been having irregular menstrual cycles since the beginning of control pills,. The patient has been on omeprazole since bariatric surgery [facility] Medical History Abnormal uterine bleeding (AUB) Intestinal malabsorption following gastrectomy Measles, mumps, rubella (MMR) vaccination status unknown Bacterial vaginosis Overweight (BMI 25.0-29.9) Tinea pedis Mass in neck Dysplasia of cervix, low grade (AMRITA 1) COVID-19 virus infection Nexplanon removal Bacterial vaginosis Menometrorrhagia COVID-19 vaccine series started History of pneumonia Adjustment disorder, unspecified Vitamin A deficiency Vitamin D deficiency History of kidney stones Irritable bowel syndrome Shortness of breath Multiple pigmented nevi Lateral meniscal tear Bile salt-induced diarrhea Impaired glucose tolerance 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9 - Abnormal uterine and vaginal bleeding, unspecified Category: Medical Plan: Discussed with the patient possible causes of AUB on control pills including omeprazole since metabolism is with cytochrome P 450 completing with a hormonal contraception affecting levels and possibly the efficacy of con traception, recommended to use a backup method for control, and to check with bariatric surgery if omeprazole can be discontinued, if so will keep the patient on control pill for 3 more months, if not consider Mirena IUD franklyn. Instructions given the patient to schedule a three-month follow-up appointment. All questions answered, the patient verbalized understanding Coding Level of Care Code Est Pt Level 3 (30718) Diagnoses Abnormal uterine bleeding (AUB) N93.9
[2025-01-19 07:51] VITALS: BP 110/70; BMI 24.1
== END 2025-01-19 13:30 | disposition home or self-care (01) ==
LOC: HO.HWS 07:46
PROVIDERS: PCP Internal Medicine; Visit Provider Obstetrics & Gynecology
DX: N93.9 Abnormal uterine and vaginal bleeding, unspecified (principal)
CPT/HCPCS: 99213

== ENCOUNTER → 2025-01-19 07:45 | Outpatient (BNVA) | payer OTHER, SELFPAY | PROVIDERS: PCP Internal Medicine; Visit Provider Obstetrics & Gynecology | DX: N93.9 Abnormal uterine and vaginal bleeding, unspecified (principal) | CPT/HCPCS: 99212 ==

== ENCOUNTER 2025-02-23 09:29 | Outpatient (AMB) | payer OTHER, SELFPAY ==
--- NOTE | 2025-02-23 09:33 | MHC.OFFVIS ---
Vital Signs 02/23/25 09:35 Height 5 ft 2 in Weight 133 lb BMI 24.3 BP 98/62 Intake Visit Reasons: control issues Showroom Sales Assistant Required: No Information Interpreted: non-clinical & clinical Accompanied by: Self / Same As Patient Allergies Penicillins Allergy (Mild, Verified 02/23/25 09:36) RASH HPI Comments Details: Presenting for follow-up after starting on cone for placed for the last 4 months, the patient is complaining of heavy menstrual cycles associated with passage of blood clots and pelvic cramps. In addition the patient sister was newly diagnosed with breast cancer at age of 35 The following AUB workup was done: H&H= 11.5/37 the TSH, prolactin, hCG, GC and chlamydia were negative. Endometrial biopsy pathology showed the following: Endometrium, biopsy: - Early secretory endometrium. - Few strips of endocervical epithelium within normal limits. - No atypia or hyperplasia identified Co testing was done was negative Pelvic ultrasound showed the following: Uterus: The uterus is anteverted and measures 8 x 5 x 6 cm. Volume is 224 cc. The double wall endometrial thickness is 4 mm. The uterus is smooth in contour and has normal myometrial echogenicity. No visible fibroid. Adnexa: Both ovaries are visualized. There is normal color flow to the adnexa. There is no ovarian torsion. There is no pelvic ascites or fluid collection. Scattered follicles within both ovaries more conspicuous on the left ovary. Right ovary measures 3 x 3 x 2 cm. Volume is 9 cc. Left ovary measures 3 x 3 x 2 cm. Volume is 12 cc. Trace amount of free fluid in the cul-de-sac. [facility] Medical History Abnormal uterine bleeding (AUB) Intestinal malabsorption following gastrectomy Measles, mumps, rubella (MMR) vaccination status unknown Bacterial vaginosis Overweight (BMI 25.0-29.9) Tinea pedis Mass in neck Dysplasia of cervix, low grade (AMRITA 1) COVID-19 virus infection Nexplanon removal Bacterial vaginosis Menometrorrhagia COVID-19 vaccine series started History of pneumonia Adjustment disorder, unspecified Vitamin A deficiency Vitamin D deficiency History of kidney stones Irritable bowel syndrome Shortness of breath Multiple pigmented nevi Lateral meniscal tear Bile salt-induced diarrhea Impaired glucose tolerance 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[place] Sexual orientation: Straight/Heterosexual Gender identity: Female Cognitive needs: No Hearing needs: No Vision needs: No Female Reproductive History Menstrual Age of Menarche: 13 Review of Systems Const All systems reviewed & are unremarkable except as noted in HPI and below Reports as per HPI and Reports no additional complaints GI Reports no additional complaints Reports no additional complaints Physical Exam Vital Signs: Last Vital Signs BP 98/62 02/23/25 09:35 BMI result Body Mass Index 24.3 Assessment & Plan Assessment & Plan (1) Abnormal uterine bleeding (AUB): Code(s): N93.9 - Abnormal uterine and vaginal bleeding, unspecified Category: Medical Plan: Discussed with the patient the results of the work up done and options of treatment including control pills, Mirena IUD, (both are associated with an increase in the risk of breast cancer in addition to the baseline increase in the risk breast cancer given patient's family history of newly diagnosed breast cancer at an early age with a her sister) endometrial ablation with laparoscopic salpingectomy and hysterectomy. All pros, cons, risks and benefits if each option was discussed with the patient and the patient decided to go ahead definitive treatment hysterectomy. Discussed with the patient the different types of hysterectomies including, vaginal, laparoscopic assisted vaginal, robotic assisted laparoscopic,& abdominal with BSO. All pros, cons, r/b of each approach were discussed the patient including evidence that morbidity is less and recovery is shorter with minimally invasive approaches to hysterectomy. Discussed with the patient the lack of availability of the robot DaVinci robot and/or minimally invasive photoresist printer specialist at [facility]. The patient was referred to a tertiary care center minimally invasive campus security director surgery. (2) FH: breast cancer in relative when <45 years old: Code(s): Z80.3 - Family history of malignant neoplasm of breast Category: Medical Plan: TC lifetime breast cancer risk with 15.6% Will order screening mammogram Orders: Orders MM tomosynthesis screening BI Today Z12.31 - Encounter for screening mammogram for malignant neoplasm of breast Coding Level of Care Code Est Pt Level 3 (11098) Diagnoses Abnormal uterine bleeding (AUB) N93.9 FH: breast cancer in relative when <45 years old Z80.3
[2025-02-23 09:35] VITALS: BP 98/62; BMI 24.3
--- OUTSIDE RECORDS SUMMARY | 2025-02-23 10:27 | XMS_ITS | Patient Health Record ---
Author Organization [facility] Address [address] [place] [address] Care Team Providers Care Category Consultant Name Role Phone Po Samuel STEPHENSON Primary Care Provider Rome Mcdaniel Unavailable [phone] Allergies Allergen (clinical drug ingredient) Drug/Non Drug Allergy documented on EMR Reaction Allergy Type Onset Date Status Penicillin Unknown Drug Allergy Active Seasonal (uncoded) Unknown Allergy A ctive Reason For Referral No Information Medications Medication SIG (Take, Route, Frequency, Duration) Notes Start Date End Date Status Pepcid Active Omeprazole 20 MG 1 tablet Orally twic e day 01/28/2012 Not-Taking Celebrate Multi-Complete 18 - as directed Orally 04/17/2021 Active Vitamin D3 1.25 MG (80167 UT) TAKE 1 CAPSULE BY MOUTH EVERY WEEK Oral for 84 Active Vitamin A 3 MG (66151 UT) TAKE 2 CAPSULE S BY MOUTH EVERY DAY Oral for 29 Active Fluticasone Propionate Active Immunizations Vaccine Route Administration Date Status Comme nts Influenza Unknown 08/10/2019 Administered Influenza Unknown 08/23/2020 Administered Problems Problem Type SNOMED Code ICD Code Onset Dates Problem Status W/U Status Risk Notes Problem [id number] Irritable bowel syndrome with diarrhea (K58.0) Active confirmed Problem 988845193 Gastroesophageal reflux disease without esophagitis (K21.9) Active confirmed Problem Hiatal hernia (51319779) Hiatal hernia (K44.9) Active confirmed Problem 74218745 Rectal bleed (K62.5) Active confirmed Problem Gastroesophageal reflux disease (290533825) GERD (gastroesophageal reflux disease) (K21.9) Active confirmed Problem 17050369 Diarrhea, unspecified type (R19.7) Active confirmed Plan [...] Insured Coverage Start Date Coverage End Date [employer] [place] [address] [address] [place] [address] [id number] 5 GER DOMINIQUE Self - patient is [...] study. She had surgery as below. Denies CT,DM,CVA,Lung disease,renal dise ase Diarhea/IBS-normal duodenal biopsies in 2011 and in 2019 Colonoscopy in January of 2020 revealed no evidence of inflammatory bowel disease and biopsies were negative for microscopic colitis Surgical History Surgery Date(Month/Year) Cholecystectomy 2010 Tonsillectomy Adenoidectomy LEEP surgery Deisi-en-Y Gastric bypass wit h a 150cm Deisi limb and a Hiatal Hernia repair with Dr. Shipman at [facility] 04/2021
== END 2025-02-23 10:11 | disposition home or self-care (01) ==
LOC: HO.HWS 09:30
PROVIDERS: PCP Internal Medicine; Visit Provider Obstetrics & Gynecology
DX: N93.9 Abnormal uterine and vaginal bleeding, unspecified (principal); Z80.3 Family history of malignant neoplasm of breast
CPT/HCPCS: 99213

== ENCOUNTER → 2025-02-23 09:29 | Outpatient (BNVA) | payer OTHER, SELFPAY | PROVIDERS: PCP Internal Medicine; Visit Provider Obstetrics & Gynecology | DX: N93.9 Abnormal uterine and vaginal bleeding, unspecified (principal); Z80.3 Family history of malignant neoplasm of breast | CPT/HCPCS: 96127; 99212; 99395 ==

== ENCOUNTER 2025-02-23 12:27 | Outpatient (AMB) | payer OTHER, SELFPAY ==
--- NOTE | 2025-02-23 12:39 | MHC.PC.OV ---
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 Accompanied by: Self / Same As Patient Allergies Penicillins Allergy (Mild, Verified 02/23/25 12:39) RASH Medication List - Last Reconciled 02/23/25 by Samuel Larsen MD ascorbate calcium (vitamin C) 500 mg PO BID blood sugar diagnostic (FreeStyle Lite Strips) As directed check the BS QD blood-glucose meter (FreeStyle Lite Meter kit) As directed calcium citrate 1,000 mg PO DAILY cholecalciferol (vitamin D3) 125 mcg PO DAILY ferrous sulfate (FeroSul) 325 mg PO BID fluticasone propionate 50 mcg/actuation 2 sprays intranasal DAILY PRN lancets (FreeStyle Lancets) As directed check BS QD xehjxswxqejx-jlg-pjwe-FA-vit K 45 mg iron- 800 mcg-120 mcg (Bariatric Multivitamins) 1 cap PO DAILY omeprazole 20 mg PO DAILY vitamin A palmitate 10,000 units PO DAILY Tobacco use date assessed: 02/23/25 Dental Screening Dental Screen Date: 02/23/25 Did you have a dental visit in the last 12 months?: Yes Did you have a dental problem in the last 6 months where you did not have access to dental care?: No Was dental information given to patient?: Patient has dentist [facility] Medical History Abnormal uterine bleeding (AUB) Intestinal malabsorption following gastrectomy Measles, mumps, rubella (MMR) vaccination status unknown Bacterial vaginosis Overweight (BMI 25.0-29.9) Tinea pedis Mass in neck Dysplasia of cervix, low grade (AMRITA 1) COVID-19 virus infection Nexplanon removal Bacterial vaginosis Menometrorrhagia COVID-19 vaccine series started History of pneumonia Adjustment disorder, unspecified Vitamin A deficiency Vitamin D deficiency History of kidney stones Irritable bowel syndrome Shortness of breath Multiple pigmented nevi Lateral meniscal tear Bile salt-induced diarrhea Impaired glucose tolerance 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 Hiatal hernia GERD (gastroesophageal reflux disease) Surgical History History of repair of hiatal hernia S/P gastric bypass History of esophagogastroduodenoscopy (EGD) History of removal of skin mole History of endoscopy Hx of colonoscopy History of tonsillectomy and adenoidectomy Hx of cholecystectomy H/O LEEP Family History (Updated 02/23/25 @ 12:49 by Samuel Larsen MD) Maternal Aunt Ovarian cancer Paternal Grandfather Lymphoma Mother Diabetes mellitus Acute arthritis Anxiety Family history of thyroid problem Bipolar 1 disorder Father Smokes Hypertension High cholesterol Sister Breast cancer Sister Broken bones Asthma Daughter Migraine Asthma Son Asthma Premature baby Growth delay History of chest tube placement Pneumothorax Social History Household Members: Family Housing: Apartment Are you a primary care coordination manager to a significant other at home: No Do you presently have visiting nurse or other home services: No Alcohol intake: never Patient Tobacco Use Status: Never used Tobacco Tobacco use type: Cigarette e-Cigarette/Vaping Use: Never Used Second Hand Smoke Exposure: No service: No Current occupational status: employed 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 1. Little interest or pleasure in doing things: not at all 2. Feeling down, depressed, or hopeless: not at all 3. Trouble falling or staying asleep, or sleeping too much: not at all 4. Feeling tired or having little energy: not at all 5. Poor appetite or overeating: not at all 6. Feeling bad about yourself - or that you are a failure or have let yourself or your family down: not at all 7. Trouble concentrating on things, such as reading the newspaper or watching television: not at all 8. Moving or speaking so slowly that other people could have noticed. Or the opposite - being so fidgety or restless that you have been moving around a lot more than usual: not at all 9. Thoughts that you would be better off or of hurting yourself in some way: not at all Total score: 0 Depression Screening Interpretation: Negative Depression Screening Done: Yes 65422 - PHQ-9 Billing: Yes Source: Developed by Drs. Rome Fay, Bridgette Winston, Elliott Cerda and colleagues, with an educational price from [employer]. Thrive Questionnaire Date Thrive assessed: 02/23/25 I am a: Patient What is your living situation today?: I have a steady place to live Within the past 12 months, did the food you bought not last and you didn't have the money to get more?: Never true Within the past 12 months, did you worry whether your food would run out before you got money to buy more?: Never true Do you have trouble paying for medicines?: No Do you have trouble getting transportation to medical appointments?: No Do you have trouble paying your heating and electricity bill?: No Do you have trouble taking care of your child, family member or friend?: No Do you have trouble with day-to-day activities such as bathing, preparing meals, shopping, managing finances, etc.?: No Are you currently unemployed and looking for a job?: No Are you interested in more education?: No Please select the resources that you would like help with: None Currently or been in a relationship where the following occur: No concerns reported THRIVE Score: 0 AUDIT C Alcohol Use Questionnaire (AUDIT-C) 1. How often do you have a drink containing alcohol?: Monthly or less 2. How many drinks containing alcohol do you have on a typical day when you are drinking?: 1 or 2 3. How often do you have six or more drinks on one occasion?: Never Total Score: 1 FLAVIA-7 AMB Questionnaire FLAVIA-7 Date FLAVIA - 7 assessed: 02/23/25 Feeling nervous, anxious, or on edge: 1 = Several days Not being able to stop or control worryin = Several days Worrying too much about different things: 1 = Several days Trouble relaxin = Several days Being so restless that it is hard to sit still: 1 = Several days Becoming easily annoyed or irritable: 1 = Several days Feeling afraid as if something awful might happen: 1 = Several days Total FLAVIA-7 score (0-4 normal; 5-9 mild; 10-14 moderate; 15-21 severe): 7 Source: Developed by Drs. Rome Fay, Bridgette Winston, Elliott Cerda and colleagues, with an educational price from [employer]. FLAVIA-7 Assessment Billing FLAVIA-7 Assessment Tool: FLAVIA-7 Assessment 87712 Review of Systems Const Denies poor appetite and Denies weakness Eyes Denies no additional complaints ENT Reports Normal hearing present, Denies dizziness, Denies nasal congestion, Denies tinnitus and Denies sore throat Card Denies chest pain, Denies syncope, Denies rapid heart rate and Denies dyspnea Resp Denies cough and Denies dyspnea GI Denies change in stool character, Reports constipation, Denies diarrhea, Denies nausea and Denies vomiting Denies urinary frequency, Denies difficulty voiding and Denies dysuria Neuro Reports Normal hearing present, Denies confusion, Denies dizziness, Denies syncope and Denies weakness Psych Denies confusion Physical exam (Primary Care) Vital Signs: Last Vital Signs Temp 97.3 F 02/23/25 12:43 Pulse 60 02/23/25 12:43 BP 102/70 02/23/25 12:43 Pulse Ox 99 02/23/25 12:43 Oxygen Delivery Method Room Air 02/23/25 12:43 BMI result Body Mass Index 24.2 Tobacco/Smoking Status: Tobacco use Status Tobacco use date assessed 02/23/25 02/23/25 12:41 Patient Tobacco Use Status Never used Tobacco 02/23/25 12:41 Tobacco use type Cigarette 02/23/25 12:41 e-Cigarette/Vaping Use Never Used 02/23/25 12:41 PHQ-9: PHQ-9 Score PHQ-9: Total score 0 02/23/25 12:41 Depression Screening Interpretation: Negative Thrive Assessment: Date of Thrive Assessment Date Thrive assessed 02/23/25 02/23/25 12:41 Currently or been in a relationship where the following occur: No concerns reported Const General: No confusion Orientation/consciousness: No confusion HENMT Head: Yes normocephalic Ears: external ears normal and TM's normal bilaterally Face and sinus: Yes normal facial exam Mouth: moist mucous membranes Throat: Yes tonsils normal Eyes Conjunctivae: conjunctivae normal Pupils: Equal, round and reactive pupils present and Pupil accommodation reflex normal Direct Ophthalmoscopy: normal light reflex Neck Neck: No lymphadenopathy Thyroid: Thyroid normal Chest Chest palpation & inspection: normal inspection of the chest Resp Effort & Inspection: normal respiratory effort and no audible wheezes Auscultation: clear to auscultation bilaterally, no crackles, no wheezes and lung sounds not diminished Cardio Rate: regular rate Rhythm: regular rhythm Peripheral pulses: radial pulses present and dorsalis pedis present GI Palpation (GI): no masses Auscultation: normal bowel sounds and normoactive bowel sounds Rectal Exam - Female: deferred Skin General skin exam: no rashes or lesions noted Rashes: no rashes Neuro General: No confusion Cranial nerves: Yes Equal, round and reactive pupils present and Yes Normal hearing present Cognition (Neuro): normal cognition Gait exam (Neuro): Normal gait present Motor exam (neuro): 5/5 motor strength present throughout Deep tendon reflexes (DTR's): Right brachioradialis reflex intensity grade: 2+, Left brachioradialis reflex intensity grade: 2+, Right patellar reflex intensity grade: 2+ and Left patellar reflex intensity grade: 2+ Extrem General: No edema Coding Level of Care Code Est Pt Prev Care 18-39y(38334) Diagnoses Annual physical exam Z00.00 Hx of gastric bypass Z98.84 Iron deficiency anemia secondary to inadequate dietary iron intake D50.8 Iron deficiency anemia type: inadequate dietary iron intake Abnormal uterine bleeding (AUB) N93.9 Hearing deficit H91.90 Additional Codes FLAVIA-7 Assessment Billing - FLAVIA-7 Assessment Tool: FLAVIA-7 Assessment 58161 ([id number]) PHQ-9 - 55994 - PHQ-9 Billing: Yes ([id number]) Assessment & Plan Assessment & Plan (1) Annual physical exam: Code(s): Z00.00 - Encounter for general adult medical examination without abnormal findings Category: Medical Plan: Patient is advised to eat healthy, keep well hydrated, keep active and have adequate sleep. (2) Hx of gastric bypass: Comment: Laparoscopic Deisi en Y gastric bypass with hiatal hernia repair 04/2021 Dr. Metzger Code(s): Z98.84 - Bariatric surgery status Category: Surgical Plan: Continue to follow-up with bariatric surgeon (3) Iron deficiency anemia: Code(s): D50.9 - Iron deficiency anemia, unspecified Category: Medical Qualifiers: Iron deficiency anemia type: inadequate dietary iron intake Qualified Code(s): D50.8 - Other iron deficiency anemias Plan: Patient follows up with Hematology-Oncology presently on iron and vitamin-C (4) Abnormal uterine bleeding (AUB): Code(s): N93.9 - Abnormal uterine and vaginal bleeding, unspecified Category: Medical Plan: Patient's follows up with gynecology and planned referral to tertiary institution for robotic surgery (5) Hearing deficit: Code(s): H91.90 - Unspecified hearing loss, unspecified ear Category: Medical Plan History of Present Illness The patient is a 39-year-old female presenting for a physical examination and management of her iron deficiency anemia. She underwent gastric bypass surgery in April 2021 and has been on a maintenance dose of iron. Although she had a normal blood count and normal electrolytes as per an February 02 assessment, her potassium was low-normal. Her past medical history includes menorrhagia, for which she has considered control and IUD options due to a hereditary risk of breast cancer. A mammogram has been advised owing to her strong family history of cancer. She reports persistent loose stool consistency post-surgery, characterized as formed but soft. Urinary analysis suggests dark and concentrated output despite adequate hydration. Health Maintenance - Routine physical examination conducted. - Referral for mammogram discussed due to strong family history of breast cancer. - Patient advised on dietary intake to manage low normal potassium, emphasizing green leafy vegetables, avocados, bananas, and potatoes. - Discussed the importance of maintaining hydration to prevent concentrated urine and potential complications. - Future planning for potential hysterectomy due to menorrhagia. - Sleep hygiene addressed; encouraged implementation of sleep strategies to improve rest. Social History - Denies alcohol use. - Sleeps consistently between 70 working hours weekly across multiple jobs, occasionally impacting sleep quality. - Maintains a steady intake of water consuming roughly three 32-ounce Yetis daily. 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 - Family history significant for breast cancer and ovarian cancer, with possible other neurological conditions (exact type unspecified). Review of Systems - Constitutional: Denies any history of fainting, dizziness, fever, or nausea. - HEENT: Reports deafness in the right ear due to past trauma. - Cardiovascular: Denies shortness of breath and chest pain. - Respiratory: Denies shortness of breath. - Gastrointestinal: Reports loose and watery bowel movements; denies nausea and vomiting. - Genitourinary: Reports frequent urinary tract infections; denies painful urination. - Musculoskeletal: Denies any specific musculoskeletal complaints. - Neurological: Denies recent faintness or dizziness. - Hematology/Lymphatics: Reports history of iron deficiency anemia. - Sleep: Reports frequent waking during nighttime. - Psychological: Denies any recent changes in appetite or irritability due to depression; sleep disturbances present. Physical Exam General: Cooperative, healthy appearing, comfortable, no acute distress and well developed Orientation: Patient oriented x3 Limitations: No limitations Head: Normal to inspection Ears: Hearing impaired in the right ear due to past trauma; left ear grossly normal Nose: Normal external nose present Face and sinus: Normal facial exam Eyes: Appearance normal, both eyes and all related structures Neck: Normal visual inspection and Yes full ROM Respiratory: Normal respiratory effort and able to speak in complete sentences. Clear to auscultation bilaterally Cardiovascular: Regular rate and rhythm. Normal S1 and S2 GI: Normal to inspection. Soft to palpation and nontender Skin: No rashes or lesions noted Neuro: Patient oriented x3 Extremities: Normal to inspection Results - Labs: Blood count (February 02) normal; Potassium low-normal at 3.5 mEq/L. - Cholesterol: LDL 44 mg/dL (last test March 2024). Plan Management of the iron deficiency anemia will continue, with ongoing hematology involvement and maintenance iron therapy. Dietary modifications are recommended to normal potassium levels by incorporating more potassium-rich foods. Given the strong family history of breast cancer, a mammogram is advised. We reviewed the surgical intervention benefits for her menorrhagia and provided education regarding the hysterectomy and salpingectomy procedures. Improved sleep hygiene was reinforced, and an audiology referral was initiated for the hearing deficit secondary to trauma. Awareness regarding increased urinary infection risk was conveyed, aligning potential hormonal changes with planned hysterectomy. Monitoring of work-life balance was suggested for general well-being, considering her extensive working hours. Patient was informed and verbally consented to the use of an ambient scribe for clinic note documentation during this visit. Discussion Notes I discussed the current management plan for her iron deficiency anemia, emphasizing dietary adjustments to address her potassium levels. We reviewed the proposed mammogram due to the high familial cancer predisposition. Surgical options for the patient's menorrhagia were explored, including the benefits and risks of hysterectomy and salpingectomy. An audiology referral was recommended to investigate her right ear hearing deficit due to trauma. I also provided sleeping tips and highlighted couple strategies to enhance her sleep hygiene. The potential postoperative changes following a planned hysterectomy were also discussed, including the risk of urinary infections, given possible hormonal alterations. Finally, we discussed scheduling her paperwork to support upcoming surgery for compliance with workplace leave requirements. Patient Instructions - Continue taking the prescribed iron supplements and Vitamin C as advised. - Increase intake of potassium-rich foods: eat more bananas, spinach, and avocados. - Stay hydrated by drinking adequate water daily. - Schedule the mammogram as advised. - Maintain a consistent sleep routine for better rest. - Monitor any new symptoms of urinary infection post-surgery. - Follow up with audiology for your hearing concerns. - Stay informed about your surgery planning and ensure [place] paperwork is in order. - Watch for any changes in your health and contact the office with concerns. - Prioritize work-life balance to incorporate more rest and health recuperation time. - Stay up-to-date with all prescribed vaccinations. Orders: Referrals Speech and Hearing Referral H91.90 - Unspecified hearing loss, unspecified ear
[2025-02-23 12:43] VITALS: BP 102/70; PULSE 60; TEMP 36.3; O2SAT 99; BMI 24.2
== END 2025-02-23 13:08 | disposition home or self-care (01) ==
LOC: HO.HMCH 12:27
PROVIDERS: PCP Internal Medicine; Visit Provider Internal Medicine
DX: Z00.00 Encounter for general adult medical examination without abnormal findings (principal); Z98.84 Bariatric surgery status; D50.8 Other iron deficiency anemias; N93.9 Abnormal uterine and vaginal bleeding, unspecified; H91.90 Unspecified hearing loss, unspecified ear

== ENCOUNTER 2025-04-26 08:02 | Outpatient (REF) | payer OTHER, SELFPAY ==
--- OUTSIDE RECORDS SUMMARY | 2025-04-26 08:12 | XMS_ITS | Patient Health Record ---
Author Organization [facility] Address [address] [place] [address] Care Team Providers Care Proj Mgr Name Role Phone Po Samuel STEPHENSON Primary Care Provider Rome Mcdaniel Unavailable [phone] Allergies Allergen (clinical drug ingredient) Drug/Non Drug [...] Orally 04/17/2021 Active Vitamin D3 1.25 MG (35092 UT) TAKE 1 CAPSULE BY MOUTH EVERY WEEK Oral for 84 Active Vitamin A 3 MG (85660 UT) TAKE 2 CAPSULE S BY MOUTH EVERY DAY Oral for 29 Active Fluticasone Propionate Active Immunizations Vaccine Route Administration Date Status Comme nts Influenza Unknown 08/10/2019 Administered Influenza Unknown 08/23/2020 Administered Problems Problem Type SNOMED Code ICD Code Onset Dates Problem Status W/U Status Risk Notes Problem 097605927 Irritable bowel syndrome with diarrhea (K58.0) Active confirmed Problem 481843915 Gastroesophageal reflux disease without esophagitis (K21.9) Active confirmed Problem Hiatal hernia (46903132) Hiatal hernia (K44.9) Active confirmed Problem 95930203 Rectal bleed (K62.5) Active confirmed Problem Gastroesophageal reflux disease (781341208) GERD (gastroesophageal reflux disease) (K21.9) Active confirmed Problem 80180536 Diarrhea, unspecified type (R19.7) Active confirmed Plan [...] Insured Coverage Start Date Coverage End Date [employer] B[employer]EF[employer] ADMIN[employer]ATORS OF [place] [address] [address] [place] [address] [id number] GER DOMINIQUE Self - patient is [...] study. She had surgery as below. Denies [place],DM,CVA,Lung disease,renal dise ase Diarhea/IBS-normal duodenal biopsies in 2011 and in 2019 Colonoscopy in January of 2020 revealed no evidence of inflammatory bowel disease and biopsies were negative for microscopic colitis Surgical History Surgery Date(Month/Year) Cholecystectomy 2010 Tonsillectomy Adenoidectomy LEEP surgery Deisi-en-Y Gastric bypass wit h a 150cm Deisi limb and a Hiatal Hern[place] with [place] [facility] [place]
== END 2025-04-26 08:03 | disposition home or self-care (01) ==
LOC: HO.SH 08:02
PROVIDERS: Visit Provider Internal Medicine
DX: Z01.118 Encounter for examination of ears and hearing with other abnormal findings (principal); H93.293 Other abnormal auditory perceptions, bilateral
CPT/HCPCS: 92557; 92567; 92588

== ENCOUNTER 2025-05-02 07:40 | Outpatient (REF) | payer OTHER, SELFPAY ==
--- OUTSIDE RECORDS SUMMARY | 2025-05-02 07:42 | XMS_ITS | Patient Health Record ---
Author Organization [facility] Address [address] [place] [address] Care Team Providers Care Wire Chief Name Role Phone Po Samuel STEPHENSON Primary Care Provider Rome Mcdaniel Unavailable [phone] Allergies Allergen (clinical drug ingredient) Drug/Non Drug [...] Orally 04/17/2021 Active Vitamin D3 1.25 MG (91207 UT) TAKE 1 CAPSULE BY MOUTH EVERY WEEK Oral for 84 Active Vitamin A 3 MG (30887 UT) TAKE 2 CAPSULE S BY MOUTH EVERY DAY Oral for 29 Active Fluticasone Propionate Active Immunizations Vaccine Route Administration Date Status Comme nts Influenza Unknown 08/10/2019 Administered Influenza Unknown 08/23/2020 Administered Problems Problem Type SNOMED Code ICD Code Onset Dates Problem Status W/U Status Risk Notes Problem 026264822 Irritable bowel syndrome with diarrhea (K58.0) Active confirmed Problem 535385389 Gastroesophageal reflux disease without esophagitis (K21.9) Active confirmed Problem Hiatal hernia (77092492) Hiatal hernia (K44.9) Active confirmed Problem 87555746 Rectal bleed (K62.5) Active confirmed Problem Gastroesophageal reflux disease (835539053) GERD (gastroesophageal reflux disease) (K21.9) Active confirmed Problem 80482172 Diarrhea, unspecified type (R19.7) Active confirmed Plan [...] Insured Coverage Start Date Coverage End Date [employer] BENEFITS ADMIN[employer]RATORS OF [place] [address] [address] [place] [address] [id number] 5 GER DOMINIQUE Self - patient is [...] study. She had surgery as below. Denies [place],DM,CVA,Lung disease,renal dise ase Diarhea/IBS-normal duodenal biopsies in 2011 and in 2019 Colonoscopy in January of 2020 revealed no evidence of inflammatory bowel disease and biopsies were negative for microscopic colitis Surgical History Surgery Date(Month/Year) Cholecystectomy 2010 Tonsillectomy Adenoidectomy LEEP surgery Deisi-en-Y Gastric bypass wit h a 150cm Deisi limb and a Hiatal Hernia repair with Dr. Shipman at [facility] [place] 04/2021
== END 2025-05-02 07:41 | disposition home or self-care (01) ==
LOC: HO.MAMMO 07:40
PROVIDERS: PCP Internal Medicine; Visit Provider Obstetrics & Gynecology
DX: Z12.31 Encounter for screening mammogram for malignant neoplasm of breast (principal)
CPT/HCPCS: 77063; 77067

== ENCOUNTER → 2025-05-02 07:45 | Outpatient (BNV) | payer OTHER, SELFPAY | PROVIDERS: PCP Internal Medicine; Visit Provider Internal Medicine | DX: Z12.31 Encounter for screening mammogram for malignant neoplasm of breast (principal) | CPT/HCPCS: 77063; 77067 ==

== ENCOUNTER 2025-07-11 09:51 | Outpatient (REF) | payer OTHER, SELFPAY ==
[2025-07-11 17:07] LABS: Bacterial Vaginosis PCR POSITIVE (Negative); Candida Group PCR NOT DETECTED (Not Detect); Candida glab krusei PCR NOT DETECTED (Not Detect); Trichomonas vaginalis PCR NOT DETECTED (Not Detect)
[2025-07-11 17:38] LABS: CT PCR NOT DETECTED (Not Detect.); NG PCR NOT DETECTED (Not Detect.)
== END 2025-07-11 09:52 | disposition home or self-care (01) ==
LOC: HO.LNP 09:51
PROVIDERS: PCP Internal Medicine; Visit Provider Obstetrics & Gynecology
DX: N93.9 Abnormal uterine and vaginal bleeding, unspecified (principal); Z32.02 Encounter for pregnancy test, result negative
CPT/HCPCS: 81025; 81515; 87491; 87591; 99212

== ENCOUNTER 2025-07-11 09:51 | Outpatient (AMB) | payer OTHER, SELFPAY ==
--- NOTE | 2025-07-11 10:10 | A.OFFVIS_ITS ---
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 Last co testing in 09/25 was negative Last mammogram in 05/26 was BI-RADS 1 [facility] Medical History (Updated 07/11/25 @ 10:23 by Drake Munoz MD) Abnormal uterine bleeding (AUB) Intestinal malabsorption following gastrectomy Measles, mumps, rubella (MMR) vaccination status unknown Bacterial vaginosis Overweight (BMI 25.0-29.9) Tinea pedis Mass in neck Dysplasia of cervix, low grade (AMRITA 1) COVID-19 virus infection Nexplanon removal Bacterial vaginosis Menometrorrhagia COVID-19 vaccine series started History of pneumonia Adjustment disorder, unspecified Vitamin A deficiency Vitamin D deficiency History of kidney stones Irritable bowel syndrome Shortness of breath Multiple pigmented nevi Lateral meniscal tear Bile salt-induced diarrhea Impaired glucose tolerance 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 Hiatal hernia GERD (gastroesophageal reflux disease) Surgical History History of repair of hiatal hernia S/P gastric bypass History of esophagogastroduodenoscopy (EGD) History of removal of skin mole History of endoscopy Hx of colonoscopy History of tonsillectomy and adenoidectomy Hx of cholecystectomy H/O LEEP Family History Maternal Aunt Ovarian cancer Paternal Grandfather Lymphoma Mother Diabetes mellitus Acute arthritis Anxiety Family history of thyroid problem Bipolar 1 disorder Father Smokes Hypertension High cholesterol Sister Breast cancer Sister Broken bones Asthma Daughter Migraine Asthma Son Asthma Premature baby Growth delay History of chest tube placement Pneumothorax Social History Household Members: Family Housing: Apartment Are you a primary live in caregiver to a significant other at home: No Do you presently have visiting nurse or other home services: No Alcohol intake: never Patient Tobacco Use Status: Never used Tobacco Tobacco use type: Cigarette e-Cigarette/Vaping Use: Never Used Second Hand Smoke Exposure: No service: No Current occupational status: employed 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[employer] [place] Sexual orientation: Straight/Heterosexual Gender identity: Female Cognitive needs: No Hearing needs: No Vision needs: No Female Reproductive History Menstrual Age of Menarche: 13 Review of Systems Const All systems reviewed & are unremarkable except as noted in HPI and below Physical Exam Vital Signs: BMI result Body Mass Index 24.1 General: Yes no CVA tenderness External Female Exam: normal external appearance and normal appearance of the urethra Speculum Exam - Vagina: normal appearance of the vagina, normal palpation, no lesions and no masses Speculum Exam - Cervix: normal appearance of the cervix, normal palpation, no lesions, no masses and nontender Bimanual exam- vagina & uterus: normal bimanual exam, normal palpation, uterine size normal, normal palpation, uterine shape normal, No Cervical tenderness present and non-tender Bimanual Exam- Adnexa, other: normal adnexae Back/Spine/Pelvis Back: no CVA tenderness Results AMB Test Urine AMB Test Urine Negative Last Edit by Samara Richardson CMA on 10:23 Assessment & Plan Assessment & Plan (1) Abnormal uterine bleeding (AUB): Comment: With Nexplanon Code(s): N93.9 - Abnormal uterine and vaginal bleeding, unspecified Category: Medical Plan: UPT done in the office was negative. CBC, TSH, hCG ordered. GC/CT with BV panel collected. Pelvic ultrasound ordered. Instructions given the patient to schedule an EMB appointment within 2 weeks to rule out endometrial pathology including endometrial hyperplasia and/or malignancy Orders: Orders Complete Blood Count no Diff Today N93.9 - Abnormal uterine and vaginal bleeding, unspecified US pelvic and transvaginal Today N93.9 - Abnormal uterine and vaginal bleeding, unspecified AMB HCG Urine Test Today Z32.02 - Encounter for test, result negative TSH reflex Free T4 Today N93.9 - Abnormal uterine and vaginal bleeding, unspecified HCG Quantitative Today N93.9 - Abnormal uterine and vaginal bleeding, unspecified Coding Level of Care Code Est Pt Level 3 (11121) Diagnoses Abnormal uterine bleeding (AUB) N93.9
[2025-07-11 10:13] VITALS: BMI 24.1
--- OUTSIDE RECORDS SUMMARY | 2025-07-11 11:35 | XMS_ITS | Patient Health Record ---
Author Organization [facility] Address [address] [place] [address] Care Team Providers Care Relay Man Name Role Phone Po Samuel STEPHENSON Primary Care Provider Rome Mcdaniel Unavailable [phone] Allergies Allergen (clinical drug ingredient) Drug/Non Drug [...] Orally 04/17/2021 Active Vitamin D3 1.25 MG (87905 UT) TAKE 1 CAPSULE BY MOUTH EVERY WEEK Oral for 84 Active Vitamin A 3 MG (35281 UT) TAKE 2 CAPSULE S BY MOUTH EVERY DAY Oral for 29 Active Fluticasone Propionate Active Immunizations Vaccine Route Administration Date Status Comme nts Influenza Unknown 08/10/2019 Administered Influenza Unknown 08/23/2020 Administered Problems Problem Type SNOMED Code ICD Code Onset Dates Problem Status W/U Status Risk Notes Problem 696000679 Irritable bowel syndrome with diarrhea (K58.0) Active confirmed Problem 576213399 Gastroesophageal reflux disease without esophagitis (K21.9) Active confirmed Problem Hiatal hernia (05881058) Hiatal hernia (K44.9) Active confirmed Problem 22273302 Rectal bleed (K62.5) Active confirmed Problem Gastroesophageal reflux disease (202763524) GERD (gastroesophageal reflux disease) (K21.9) Active confirmed Problem 40456581 Diarrhea, unspecified type (R19.7) Active confirmed Plan [...] Insured Coverage Start Date Coverage End Date [employer] B[employer] [place] [address] [address] [place] [address] [id number] 5 GER DOMINIQUE Self - patient is [...] study. She had surgery as below. Denies [place],DM,CVA,Lung disease,renal dise ase Diarhea/IBS-normal duodenal biopsies in 2011 and in 2019 Colonoscopy in January of 2020 revealed no evidence of inflammatory bowel disease and biopsies were negative for microscopic colitis Surgical History Surgery Date(Month/Year) Cholecystectomy 2010 Tonsillectomy Adenoidectomy LEEP surgery Deisi-en-Y Gastric bypass wit h a 150cm Deisi limb and a Hiatal Hernia repair with Dr. Shipman at [facility] 04/2021
== END 2025-07-11 09:52 | disposition home or self-care (01) ==
LOC: HO.HWS 09:52
PROVIDERS: PCP Internal Medicine; Visit Provider Obstetrics & Gynecology
DX: N93.9 Abnormal uterine and vaginal bleeding, unspecified (principal); Z32.02 Encounter for pregnancy test, result negative
CPT/HCPCS: 99213

== ENCOUNTER 2025-07-13 13:06 | Outpatient (REF) | payer OTHER, SELFPAY ==
[2025-07-13 13:41] LABS: Hematocrit 37.7 % (37.0-47.0); Hemoglobin 12.3 g/dl (12.0-16.0); Mean Corpuscular HGB Conc 32.6 g/dl (31.0-35.0); Mean Corpuscular Hemoglobin 30.1 pg (27.0-33.0); Mean Corpuscular Volume 92.2 fL (80.0-98.0); NRBC Abs Auto 0.000 X10*3/uL (0.0-0.012); NRBC Pct Auto 0.0 /100WBC (0.0-0.2); Platelet Count 279 X10*3/uL (160-400); Red Blood Count 4.09 X10*6/uL (4.20-5.50); White Blood Count 8.4 X10*3/uL (4.8-10.8)
--- OUTSIDE RECORDS SUMMARY | 2025-07-13 17:09 | XMS_ITS | Patient Health Record ---
Author Organization [facility] Address [address] [place] [address] Care Team Providers Care Second Hand Name Role Phone Po Samuel STEPHENSON Primary Care Provider Rome Mcdaniel Unavailable [phone] Allergies Allergen (clinical drug ingredient) Drug/Non Drug [...] Orally 04/17/2021 Active Vitamin D3 1.25 MG (30267 UT) TAKE 1 CAPSULE BY MOUTH EVERY WEEK Oral for 84 Active Vitamin A 3 MG (15622 UT) TAKE 2 CAPSULE S BY MOUTH EVERY DAY Oral for 29 Active Fluticasone Propionate Active Immunizations Vaccine Route Administration Date Status Comme nts Influenza Unknown 08/10/2019 Administered Influenza Unknown 08/23/2020 Administered Problems Problem Type SNOMED Code ICD Code Onset Dates Problem Status W/U Status Risk Notes Problem 886614563 Irritable bowel syndrome with diarrhea (K58.0) Active confirmed Problem 191729511 Gastroesophageal reflux disease without esophagitis (K21.9) Active confirmed Problem Hiatal hernia (05622201) Hiatal hernia (K44.9) Active confirmed Problem 29752799 Rectal bleed (K62.5) Active confirmed Problem Gastroesophageal reflux disease (509751643) GERD (gastroesophageal reflux disease) (K21.9) Active confirmed Problem 57822849 Diarrhea, unspecified type (R19.7) Active confirmed Plan [...] Insured Coverage Start Date Coverage End Date [employer] [place] [address] [address] [place] [address] [id number] 5 GER DOMINIQUE Self - patient is [...] study. She had surgery as below. Denies [place],DM,CVA,Lung disease,renal dise ase Diarhea/IBS-normal duodenal biopsies in 2011 and in 2019 Colonoscopy in January of 2020 revealed no evidence of inflammatory bowel disease and biopsies were negative for microscopic colitis Surgical History Surgery Date(Month/Year) Cholecystectomy 2010 Tonsillectomy Adenoidectomy LEEP surgery Deisi-en-Y Gastric bypass wit h a 150cm Deisi limb and a [place] with [place] [facility] [place]
[2025-07-14 08:37] LABS: HBsAGNum1 0.36 S/CO (0.00-0.99); HIV Num 1 0.04 S/CO (0.00-0.99); Hepatitis B Surface Antigen Negative (Negative); ~HepC Num1 0.09 S/CO (0.00-0.79); ~Hepatitis C Antibody Nonreactive (Nonreactive)
[2025-07-14 08:50] LABS: Syphilis Screen Nonreactive (Nonreactive)
== END 2025-07-13 13:07 | disposition home or self-care (01) ==
LOC: HO.LAB 13:06
PROVIDERS: PCP Internal Medicine; Visit Provider Obstetrics & Gynecology
DX: Z20.2 Contact with and (suspected) exposure to infections with a predominantly sexual mode of transmission (principal); N93.9 Abnormal uterine and vaginal bleeding, unspecified; Z11.3 Encounter for screening for infections with a predominantly sexual mode of transmission; Z11.4 Encounter for screening for human immunodeficiency virus [HIV]; Z11.8 Encounter for screening for other infectious and parasitic diseases
CPT/HCPCS: 36415; 84443; 84702; 85027; 86780; 86803; 87340; 87389

== ENCOUNTER 2025-08-03 12:08 | Outpatient (AMB) | payer OTHER, SELFPAY ==
--- NOTE | 2025-08-03 12:13 | MHC.OFFVIS ---
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 Information Interpreted: non-clinical & clinical Gaming Table Operator: Gaming Table Operator Present (Samara SIMMONS) Accompanied by: Self / Same As Patient Allergies Penicillins Allergy (Mild, Verified 08/03/25 12:50) RASH HPI Comments Details: Presenting for EMB [facility] Medical History (Updated 07/11/25 @ 10:23 by Drake Munoz MD) Abnormal uterine bleeding (AUB) Intestinal malabsorption following gastrectomy Measles, mumps, rubella (MMR) vaccination status unknown Bacterial vaginosis Overweight (BMI 25.0-29.9) Tinea pedis Mass in neck Dysplasia of cervix, low grade (AMRITA 1) COVID-19 virus infection Nexplanon removal Bacterial vaginosis Menometrorrhagia COVID-19 vaccine series started History of pneumonia Adjustment disorder, unspecified Vitamin A deficiency Vitamin D deficiency History of kidney stones Irritable bowel syndrome Shortness of breath Multiple pigmented nevi Lateral meniscal tear Bile salt-induced diarrhea Impaired glucose tolerance 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 Hiatal hernia GERD (gastroesophageal reflux disease) Surgical History History of repair of hiatal hernia S/P gastric bypass History of esophagogastroduodenoscopy (EGD) History of removal of skin mole History of endoscopy Hx of colonoscopy History of tonsillectomy and adenoidectomy Hx of cholecystectomy H/O LEEP Family History Maternal Aunt Ovarian cancer Paternal Grandfather Lymphoma Mother Diabetes mellitus Acute arthritis Anxiety Family history of thyroid problem Bipolar 1 disorder Father Smokes Hypertension High cholesterol Sister Breast cancer Sister Broken bones Asthma Daughter Migraine Asthma Son Asthma Premature baby Growth delay History of chest tube placement Pneumothorax Social History Household Members: Family Housing: Apartment Are you a primary personal care worker to a significant other at home: No Do you presently have visiting nurse or other home services: No Alcohol intake: never Patient Tobacco Use Status: Never used Tobacco Tobacco use type: Cigarette e-Cigarette/Vaping Use: Never Used Second Hand Smoke Exposure: No service: No Current occupational status: employed 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[employer] Sexual orientation: Straight/Heterosexual Gender identity: Female Cognitive needs: No Hearing needs: No Vision needs: No Female Reproductive History Menstrual Age of Menarche: 13 Review of Systems Const All systems reviewed & are unremarkable except as noted in HPI and below Reports as per HPI and Reports no additional complaints GI Reports no additional complaints Reports no additional complaints Physical Exam Vital Signs: BMI result Body Mass Index 24.1 Office Procedures Endometrial Biopsy Details: The patient was counseled regarding the indication and benefits of endometrial sampling to rule out endometrial pathology including not limited to endometrial hyperplasia or endometrial cancer and others; The alternatives (Either do nothing vs. hysteroscopy D&C) & the risks were discussed with the patient including but not limited: pain, uterine perforation, bleeding, infection, possible injury to bladder, bowel, ureter, possible need for blood transfusion with all its possible risks. The patient verbalized understanding all questions answered and signed consent. Urine test done in the office was negative The patient was placed into the dorsal lithotomy position; a speculum was inserted in the vagina. Using aseptic technique for the procedure, the cervix was cleansed with Betadine. The anterior lip of the cervix was grasped with a single tooth tenaculum. The uterus was sounded to 7 cm with a 4 mm Pipelle was used. Tissues samples were obtained and placed in formalin, in a patient labeled container and sent to the pathology department. At the end of the procedure, there was minimal bleeding noted The patient tolerated the procedure well and was discharged in good condition with the following instructions: Nothing in the vagina until the bleeding stops. No sex until the bleeding stops, to call if any of the following occurs: fever (>100.4), flu-like symptoms, abdominal pain, heavy bleeding, four smelling vaginal discharge. The patient was instructed to schedule a Follow up appointment in 2 weeks to discuss pathology results of the biopsy and treatment options. This note was generated with a voice recognition program. Some errors may have been overlooked during the review of this note. Sometimes these errors may affect the content or meaning of a given sentence. 11527-Foooyadhkun Biopsy Assessment & Plan Assessment & Plan (1) Abnormal uterine bleeding (AUB): Comment: With Nexplanon Code(s): N93.9 - Abnormal uterine and vaginal bleeding, unspecified Category: Medical Plan: EMB done, see procedure note Orders: Orders AMB Endometrial Biopsy Today N93.9 - Abnormal uterine and vaginal bleeding, unspecified AMB HCG Urine Test Today Z32.02 - Encounter for test, result negative Coding Level of Care Code Procedure Only Diagnoses Abnormal uterine bleeding (AUB) N93.9 CPT Codes Endometrial Biopsy - CPT: 63304-Pvfimofoqwy Biopsy ([id number])
[2025-08-03 12:49] VITALS: BMI 24.1
--- OUTSIDE RECORDS SUMMARY | 2025-08-03 13:48 | XMS_ITS | Patient Health Record ---
Author Organization [facility] Address [address] [place] [address] Care Team Providers Care Splitting Machine Feeder Name Role Phone Po Samuel STEPHENSON Primary Care Provider Rome Mcdaniel Unavailable [phone] Allergies Allergen (clinical drug ingredient) Drug/Non Drug [...] Orally 04/17/2021 Active Vitamin D3 1.25 MG (20201 UT) TAKE 1 CAPSULE BY MOUTH EVERY WEEK Oral for 84 Active Vitamin A 3 MG (25197 UT) TAKE 2 CAPSULE S BY MOUTH EVERY DAY Oral for 29 Active Fluticasone Propionate Active Immunizations Vaccine Route Administration Date Status Comme nts Influenza Unknown 08/10/2019 Administered Influenza Unknown 08/23/2020 Administered Problems Problem Type SNOMED Code ICD Code Onset Dates Problem Status W/U Status Risk Notes Problem 166902461 Irritable bowel syndrome with diarrhea (K58.0) Active confirmed Problem 101125369 Gastroesophageal reflux disease without esophagitis (K21.9) Active confirmed Problem Hiatal hernia (80977365) Hiatal hernia (K44.9) Active confirmed Problem 72622584 Rectal bleed (K62.5) Active confirmed Problem Gastroesophageal reflux disease (440298577) GERD (gastroesophageal reflux disease) (K21.9) Active confirmed Problem 73159234 Diarrhea, unspecified type (R19.7) Active confirmed Plan [...] Insured Coverage Start Date Coverage End Date [employer] [place] [address] [address] [place] [address] [id number] 5 GER DOMINIQUE Self - patient is [...] study. She had surgery as below. Denies [place],DM,CVA,Lung disease,renal dise ase Diarhea/IBS-normal duodenal biopsies in 2011 and in 2019 Colonoscopy in January of 2020 revealed no evidence of inflammatory bowel disease and biopsies were negative for microscopic colitis Surgical History Surgery Date(Month/Year) Cholecystectomy 2010 Tonsillectomy Adenoidectomy LEEP surgery Deisi-en-Y Gastric bypass wit h a 150cm Deisi limb and a Hiatal Hernia repair with [place] Ship[place] [facility] [place]
== END 2025-08-03 12:57 | disposition home or self-care (01) ==
LOC: HO.HWS 12:08
PROVIDERS: PCP Internal Medicine; Visit Provider Obstetrics & Gynecology
DX: N93.9 Abnormal uterine and vaginal bleeding, unspecified (principal)
CPT/HCPCS: 58100

== ENCOUNTER 2025-08-03 12:08 | Outpatient (REF) | payer OTHER, SELFPAY | END 2025-08-03 12:09 | disposition home or self-care (01) | LOC: HO.LNP 12:08 | PROVIDERS: PCP Internal Medicine; Visit Provider Obstetrics & Gynecology | DX: N93.9 Abnormal uterine and vaginal bleeding, unspecified (principal); Z32.02 Encounter for pregnancy test, result negative | CPT/HCPCS: 58100; 88305 ==

== ENCOUNTER 2025-08-29 14:21 | Outpatient (REF) | payer OTHER, SELFPAY ==
--- NOTE | ~2025-08-29 | US_ITS ---
EXAMINATION: US PELVIS TRANSABDOMINAL AND TRANSVAGINAL HISTORY: N93.9 - Abnormal uterine and vaginal bleeding, unspecified COMPARISON: Comparison is made with the prior examination dated 09/09/2024. TECHNIQUE: Transabdominal and endovaginal real-time 2D tran-scale ultrasound was performed. FINDINGS: Uterus: The uterus is normal in size, measuring 8.3 x 5.1 x 5.5 cm. Myometrium has a normal echotexture. No fibroids are identified. Endometrium: The endometrial stripe measures 6 mm in thickness. Right ovary: The right ovary measures 4.8 x 3.2 x 4.8 cm. The right ovary is normal in size and echotexture. There is a 3.7 x 2.2 x 3.6 cm cyst. Left ovary: The left ovary measures 2.8 x 1.5 x 2.2 cm. The left ovary is normal in size and echotexture. Pelvic fluid: none. US/US pelvic and transvaginal IMPRESSION: 3.7 x 2.2 x 3.6 cm right ovarian cyst cyst. Otherwise unremarkable pelvic ultrasound. Follow-up is recommended in, at a different time in the patient's menstrual cycle, to document resolution. Electronically signed by: Rome Thomas MD 08/29/2025 03:01 PM EDT
--- OUTSIDE RECORDS SUMMARY | 2025-08-29 18:40 | XMS_ITS | Patient Health Record ---
Author Organization [facility] Address [address] [place] [address] Care Team Providers Care Principal Cloud Architect Name Role Phone Po Samuel STEPHENSON Primary Care Provider Rome Mcdaniel Unavailable [phone] Allergies Allergen (clinical drug ingredient) Drug/Non Drug Allergy documented on EMR Reaction Allergy Type Onset Date Status Penicillin Unknown Drug Allergy Active Seasonal (uncoded) Unknown Allergy A ctive Reason For Referral No Information Medications Medication SIG (Take, Route, Frequency, Duration) Notes Start Date End Date Status Pepcid Active Omeprazole 20 MG 1 tablet Orally tw e day 01/28/2012 Not-Taking Celebrate Multi-Complete 18 - as directed Orally 04/17/2021 Active Vitamin D3 1.25 MG (88130 UT) TAKE 1 CAPSULE BY MOUTH EVERY WEEK Oral; Duration: 84 Active Vitamin A 3 MG (70492 UT) TAKE 2 CAPSULE S BY MOUTH EVERY DAY Oral; Duration: 29 Active Fluticasone Propionate Active Immunizations Vaccine Route Administration Date Status Comme nts Influenza Unknown 08/10/2019 Administered Influenza Unknown 08/23/2020 Administered Problems Problem Type SNOMED Code ICD Code Onset Dates Problem Status W/U Status Risk Notes Problem Irritable bowel syndrome with diarrhea (466231151) Irritable bowel syndrome with diarrhea (K58.0) Active confirmed Problem Gastroesophageal reflux disease without esophagitis (510998657) Gastroesophageal reflux disease without esophagitis (K21.9) Active confirmed Problem Hiatal hernia (85625052) Hiatal hernia (K44.9) Active confirmed Problem Hemorrhage of rectum and anus (408800838) Rectal bleed (K62.5) Active confirmed Problem Gastroesophageal reflux disease (610303686) GERD (gastroesophageal reflux disease) (K21.9) Active confirmed Problem Diarrhea (55859823) Diarrhea, unspecified type (R19.7) Active confirmed Plan [...] Coverage End Date [employer] [place] [address] [address] [place] [address] [id number] 5 TRIPGER TOBAR Self - patient is the insured Medical (General) History Medical History History ICD Code GERD-EGD 2011--Small HH--bx neg for celiac disease, no Sands's nor significant esophagitis; upper endoscopy in January of 2020 revealed a moderate sized hiatal hernia, but no evidence of any significant esophagitis nor Sands's esophagus. She had an esophageal motility study and pH study. She had surgery as below. Denies [place],DM,CVA,Lung disease,renal dise ase Diarhea/IBS-normal duodenal biopsies in 2011 and in 2019 Colonoscopy in January of 2020 revealed no evidence of inflammatory bowel disease and biopsies were negative for microscopic colitis Surgical History Surgery Date(Month/Year) Cholecystectomy 2010 Tonsillectomy Adenoidectomy LEEP surgery Deisi-en-Y Gastric bypass wit h a 150cm Deisi limb and a Hiatal Hernia repair with Dr. Shipman [place] [facility] [place]
== END 2025-08-29 14:22 | disposition home or self-care (01) ==
LOC: HO.US 14:21
PROVIDERS: PCP Internal Medicine; Visit Provider Obstetrics & Gynecology
DX: N93.9 Abnormal uterine and vaginal bleeding, unspecified (principal)
CPT/HCPCS: 76830; 76856

== ENCOUNTER → 2025-08-29 14:24 | Outpatient (BNV) | payer OTHER, SELFPAY | PROVIDERS: PCP Internal Medicine; Visit Provider Radiology Diagnostic Radiology | DX: N83.201 Unspecified ovarian cyst, right side (principal); N93.9 Abnormal uterine and vaginal bleeding, unspecified | CPT/HCPCS: 76830; 76856 ==

== ENCOUNTER 2025-09-05 07:43 | Outpatient (AMB) | payer OTHER, SELFPAY ==
--- OUTSIDE RECORDS SUMMARY | 2025-09-05 07:45 | XMS_ITS | Patient Health Record ---
Author Organization [facility] Address [address] [place] [address] Care Team Providers Care Desulphurizer Operator Name Role Phone Po Samuel STEPHENSON Primary Care Provider Rome Mcdaniel Unavailable [phone] Allergies Allergen (clinical drug ingredient) Drug/Non Drug [...] Orally 04/17/2021 Active Vitamin D3 1.25 MG (83682 UT) TAKE 1 CAPSULE BY MOUTH EVERY WEEK Oral; Duration: 84 Active Vitamin A 3 MG (20522 UT) TAKE 2 CAPSULE S BY MOUTH EVERY DAY Oral; Duration: 29 Active Fluticasone Propionate Active Immunizations Vaccine Route Administration Date Status Comme nts Influenza Unknown 08/10/2019 Administered Influenza Unknown 08/23/2020 Administered Problems Problem Type SNOMED Code ICD Code Onset Dates Problem Status W/U Status Risk Notes Problem Irritable bowel syndrome with diarrhea (744717985) Irritable bowel syndrome with diarrhea (K58.0) Active confirmed Problem Gastroesophageal reflux disease without esophagitis (613574142) Gastroesophageal reflux disease without esophagitis (K21.9) Active confirmed Problem Hiatal hernia (32834840) Hiatal hernia (K44.9) Active confirmed Problem Hemorrhage of rectum and anus (251101222) Rectal bleed (K62.5) Active confirmed Problem Gastroesophageal reflux disease (715932924) GERD (gastroesophageal reflux disease) (K21.9) Active confirmed Problem Diarrhea (21688172) Diarrhea, unspecified type (R19.7) Active confirmed Plan [...] Coverage End Date [employer] [place] [address] [address] [place] [address] [id number] 5 TRIPGER TOBAR Self - patient is [...] Hiatal Hernia repair with Dr. Shipman at [facility] 04/2021
--- NOTE | 2025-09-05 07:48 | A.OFFVIS_ITS ---
Vital Signs 09/05/25 07:50 Height 5 ft 2 in Weight 132 lb BMI 24.1 Intake Visit Reasons: emb results [facility] Department Specialist Required: No Information Interpreted: non-clinical & clinical Accompanied by: Self / Same As Patient Allergies Penicillins Allergy (Mild, Verified 09/05/25 07:50) RASH HPI Comments Details: The patient is presenting for follow-up to discuss the results of her abnormal uterine bleeding workup and options of treatment. The following workup was done.: H&H= 11.8/35.7 TSH, hCG, GC and chlamydia were negative. Endometrial biopsy pathology showed the following: Inactive endometrium; no atypia or hyperplasia identified. Co testing in 09/25 was done was negative. Pelvic ultrasound showed the following: Uterus: The uterus is normal in size, measuring 8.3 x 5.1 x 5.5 cm. Myometrium has a normal echotexture. No fibroids are identified. Endometrium: The endometrial stripe measures 6 mm in thickness. Right ovary: The right ovary measures 4.8 x 3.2 x 4.8 cm. The right ovary is normal in size and echotexture. There is a 3.7 x 2.2 x 3.6 cm cyst. Left ovary: The left ovary measures 2.8 x 1.5 x 2.2 cm. The left ovary is normal in size and echotexture. Pelvic fluid: none. [facility] Medical History (Updated 08/07/25 @ 08:14 by Frida Haynes MD) Abnormal uterine bleeding (AUB) Intestinal malabsorption following gastrectomy Measles, mumps, rubella (MMR) vaccination status unknown Bacterial vaginosis Overweight (BMI 25.0-29.9) Tinea pedis Mass in neck Dysplasia of cervix, low grade (AMRITA 1) COVID-19 virus infection Nexplanon removal Bacterial vaginosis Menometrorrhagia COVID-19 vaccine series started History of pneumonia Adjustment disorder, unspecified Vitamin A deficiency Vitamin D deficiency History of kidney stones Irritable bowel syndrome Shortness of breath Multiple pigmented nevi Lateral meniscal tear Bile salt-induced diarrhea Impaired glucose tolerance 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 Hiatal hernia GERD (gastroesophageal reflux disease) Surgical History History of repair of hiatal hernia S/P gastric bypass History of esophagogastroduodenoscopy (EGD) History of removal of skin mole History of endoscopy Hx of colonoscopy History of tonsillectomy and adenoidectomy Hx of cholecystectomy H/O LEEP Family History Maternal Aunt Ovarian cancer Paternal Grandfather Lymphoma Mother Diabetes mellitus Acute arthritis Anxiety Family history of thyroid problem Bipolar 1 disorder Father Smokes Hypertension High cholesterol Sister Breast cancer Sister Broken bones Asthma Daughter Migraine Asthma Son Asthma Premature baby Growth delay History of chest tube placement Pneumothorax Social History Household Members: Family Housing: Apartment Are you a primary hospice spiritual care coordinator to a significant other at home: No Do you presently have visiting nurse or other home services: No Alcohol intake: never Patient Tobacco Use Status: Never used Tobacco Tobacco use type: Cigarette e-Cigarette/Vaping Use: Never Used Second Hand Smoke Exposure: No service: No Current occupational status: employed 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[employer] [place] Sexual orientation: Straight/Heterosexual Gender identity: Female Cognitive needs: No Hearing needs: No Vision needs: No Female Reproductive History Menstrual Age of Menarche: 13 Review of Systems Const All systems reviewed & are unremarkable except as noted in HPI and below Reports as per HPI and Reports no additional complaints GI Reports no additional complaints Reports no additional complaints Assessment & Plan Assessment & Plan (1) Abnormal uterine bleeding (AUB): Comment: With Nexplanon Code(s): N93.9 - Abnormal uterine and vaginal bleeding, unspecified Category: Medical Plan: Discussed with the patient the results of the workup results including simple ovarian cyst there is no indication for further management, mild anemia, the patient has iron transfusion, normal TSH, GC/CT, endometrial biopsy pathology showing inactive endometrium with no evidence of endometrial hyperplasia and/or malignancy. Options of treatment discussed with the patient including stay on Nexplanon, continued Nexplanon and replaced with Mirena IUD, other options were discussed with the patient, the patient decided to proceed with expectant management and staying on Nexplanon. Instructions given the patient to call if symptoms are persistent or get worse , all questions answered, the patient verbalized understanding Coding Level of Care Code Est Pt Level 3 (71438) Diagnoses Abnormal uterine bleeding (AUB) N93.9
[2025-09-05 07:50] VITALS: BMI 24.1
== END 2025-09-05 07:58 | disposition home or self-care (01) ==
LOC: HO.HWS 07:43
PROVIDERS: PCP Internal Medicine; Visit Provider Obstetrics & Gynecology
DX: N93.9 Abnormal uterine and vaginal bleeding, unspecified (principal)
CPT/HCPCS: 99213

== ENCOUNTER → 2025-09-05 07:43 | Outpatient (BNVA) | payer OTHER, SELFPAY | PROVIDERS: PCP Internal Medicine; Visit Provider Obstetrics & Gynecology | DX: N93.9 Abnormal uterine and vaginal bleeding, unspecified (principal) | CPT/HCPCS: 99212 ==

== ENCOUNTER 2025-09-20 15:00 | Outpatient (RCR) | payer OTHER, SELFPAY ==
[2025-08-16 07:32] VITALS: BP 111/61; PULSE 63; RESP 16; TEMP 36.7; O2SAT 100
[2025-08-23 15:04] VITALS: BP 114/56; PULSE 65; RESP 16; TEMP 36.6; O2SAT 100
[2025-08-30 15:00] VITALS: BP 145/37; PULSE 64; RESP 16; TEMP 36.6; O2SAT 98
[2025-09-06 15:00] VITALS: BP 105/45; PULSE 82; RESP 16; TEMP 36.6; O2SAT 98
[2025-09-13 15:04] VITALS: BP 105/68; PULSE 59; RESP 16; TEMP 36.6; O2SAT 100
[2025-09-20 15:04] VITALS: BP 95/51; PULSE 67; RESP 16; TEMP 36.3; O2SAT 98
[2025-09-20 15:19] LABS: Hematocrit 41.1 % (37.0-47.0); Hemoglobin 13.3 g/dl (12.0-16.0); Mean Corpuscular HGB Conc 32.4 g/dl (31.0-35.0); Mean Corpuscular Hemoglobin 30.8 pg (27.0-33.0); Mean Corpuscular Volume 95.1 fL (80.0-98.0); NRBC Abs Auto 0.000 X10*3/uL (0.0-0.012); NRBC Pct Auto 0.0 /100WBC (0.0-0.2); Platelet Count 246 X10*3/uL (160-400); Red Blood Count 4.32 X10*6/uL (4.20-5.50); White Blood Count 8.1 X10*3/uL (4.8-10.8)
[2025-09-20 16:01] LABS: Ferritin 290 ng/mL (10-122)
== END 2025-09-20 15:31 | disposition home or self-care (01) ==
LOC: HO.INF 15:00
PROVIDERS: Visit Provider Nurse Practitioner Family
DX: D50.9 Iron deficiency anemia, unspecified (principal)
CPT/HCPCS: 36415; 82728; 85027; 96365; 96374; J1756